=== PATIENT | female | born 1960 | race Caucasian/White ===

== ENCOUNTER 2020-03-15 11:14 | Outpatient (REF) | payer MEDICAID, SELFPAY ==
[2020-03-19 06:57] LABS: HPV mRNA E6/E7 rflx Not Detected (Not Detected)
== END 2020-03-15 11:15 | disposition home or self-care (01) ==
LOC: HO.LAB 11:14
PROVIDERS: Visit Provider Obstetrics & Gynecology
DX: Z01.419 Encounter for gynecological examination (general) (routine) without abnormal findings (principal); F41.9 Anxiety disorder, unspecified; E03.9 Hypothyroidism, unspecified; E55.9 Vitamin D deficiency, unspecified; Z78.0 Asymptomatic menopausal state; Z88.6 Allergy status to analgesic agent; Z88.8 Allergy status to other drugs, medicaments and biological substances; Z79.899 Other long term (current) drug therapy
CPT/HCPCS: 36415; 87624; 88142

== ENCOUNTER → 2020-04-14 08:48 | Outpatient (BNVA) | payer MEDICAID, SELFPAY | PROVIDERS: Visit Provider Physician Assistant ==

== ENCOUNTER 2020-05-18 08:45 | Day surgery (SDC) | payer MEDICAID, SELFPAY ==
--- NOTE | 2020-05-17 12:42 | HO.ANESPROP2 ---
Documented by User: Elizabeth Oliveira 05/17/20 12:44 HPI - Anesthesia Eval Consult details Narrative: 60yo F for Colonoscopy PMFSH Active Problems Active Problems: All Active Problems (Updated 04/14/20 @ 09:51 by Mary Fountain PA-C) Well woman exam (Acute) Encounter for screening colonoscopy (Acute) Vitamin D deficiency (Acute) Past Medical History Medical History Anxiety Hypothyroid Vitamin D deficiency Family History Family History Father Pulmonary edema without heart failure COPD (chronic obstructive pulmonary disease) Mother CVD (cardiovascular disease) Diabetes Sudden cardiac Surgical History Surgical History History of carpal tunnel release Hx of cataract removal with insertion of prosthetic lens Hx of section Hx of colonoscopy Hx of dilation and curettage Hx of esophagogastroduodenoscopy Hx of eye surgery Hx of repair of left rotator cuff Hx of repair of right rotator cuff Social History Social History Household Members: Children Alcohol intake: current Alcohol intake frequency: does not drink Smoking Status: Never smoker Advance Directives: No Advance Directives Information Provided: Yes Meds Allergies Allergy/AdvReac Type Severity Reaction Status Date / Time oxycodone [From Percocet] Allergy Mild ABDOMINAL Verified 04/14/20 08:50 PAIN amlodipine [From NORVASC] AdvReac Severe STOMACH Verified 04/14/20 08:50 UPSET/ANXIETY Home Medications Medication Instructions Recorded Confirmed Last Taken Type calcium carbonate 168 mg calcium 168 mg PO TID 03/15/20 05/12/20 Unknown History (420 mg) chewable tablet levothyroxine 100 mcg capsule 100 mcg PO DAILY 03/15/20 05/12/20 Unknown History sennosides 8.6 mg capsule 8.6 mg PO DAILY 03/15/20 05/12/20 Unknown History Exam Exam Date and Time: May 17, 2020 1242 Assessment and Plan Assessment Anesthesia Assessment: Chart Reviewed Documented by User: Italo Land 05/18/20 09:16 [facility] Past Medical History Medical History Anxiety Hypothyroid Vitamin D deficiency Family History Family History Father Pulmonary edema without heart failure COPD (chronic obstructive pulmonary disease) Mother CVD (cardiovascular disease) Diabetes Sudden cardiac Surgical History Surgical History History of carpal tunnel release Hx of cataract removal with insertion of prosthetic lens Hx of section Hx of colonoscopy Hx of dilation and curettage Hx of esophagogastroduodenoscopy Hx of eye surgery Hx of repair of left rotator cuff Hx of repair of right rotator cuff Social History Social History Household Members: Children Alcohol intake: current Alcohol intake frequency: does not drink Smoking Status: Never smoker Advance Directives: No Advance Directives Information Provided: Yes Meds Allergies Allergy/AdvReac Type Severity Reaction Status Date / Time oxycodone [From Percocet] Allergy Mild ABDOMINAL Verified 04/14/20 08:50 PAIN amlodipine [From NORVASC] AdvReac Severe STOMACH Verified 04/14/20 08:50 UPSET/ANXIETY Home Medications Medication Instructions Recorded Confirmed Last Taken Type calcium carbonate 168 mg calcium 168 mg PO TID 03/15/20 05/12/20 Unknown History (420 mg) chewable tablet levothyroxine 100 mcg capsule 100 mcg PO DAILY 03/15/20 05/12/20 Unknown History sennosides 8.6 mg capsule 8.6 mg PO DAILY 03/15/20 05/12/20 Unknown History Exam Airway Mallampati Class: II TM Dist: >3cm Neck ROM: Full Partial: Upper Loose/Missing/Broken Teeth: Yes Heart: [id number] Lungs: cta b/l Assessment and Plan Assessment Anesthesia Assessment: Anesthesia Plan Discussed, PAT Visit and Chart Reviewed Final Anesthetic Review NPO: Yes ASA Class: II Final Preanesthetic Review: No Changes in Pt Med Stat, Meds/Allgs Chart Reviewed, Consent Obtained/Reviewed and Anes Risks/Benef Reviewed Patient Risk: Low Procedure Risk: Low Assessment/Block/Sedation in SS: Assess/Block/Sedation-SS Anesthetic Plan Anesthetic Plan: MAC: and Agree w/ Assess. and Plan Disposition: Standard PACU
[2020-05-18 09:17] VITALS: BP 130/85; PULSE 80; RESP 16; TEMP 36.6; O2SAT 98; BMI 30.9
[2020-05-18] MEDS: Lactated Ringers 1,000 ML 100 ML IVCONT (09:35)
--- NOTE | 2020-05-18 09:54 | P.HPSUR_ITS ---
Pre-Procedural Eval Section B Chief Complaint: Screening Details of Present Illness: Colon cancer screening Relevant Family History (Specify if Yes): No Relevant Social History: None Present Medications: see Short Stay Collaborative assessment Medical History: Significant History (Anxiety, Hypothyroid on replacement, Vit D deficiency) History of Previous Operations: Relevant previous surgery/procedure and date(s) (07/02/18--N--EGD==HH (no sx now) [place] x2: Suleiman-2002 to 50cm;full [id number]) Allergies: Allergies Allergy/AdvReac Type Severity Reaction Status Date / Time oxycodone [From Percocet] Allergy Mild ABDOMINAL Verified 04/14/20 08:50 PAIN amlodipine [From NORVASC] AdvReac Severe STOMACH Verified 04/14/20 08:50 UPSET/ANXIETY Review of Systems Sugical H&P ROS: Negative: Constitution, Cardiovascular, Respiratory and Gastrointestinal and Yes, Specify: Psychiatric (Anxiety) and Endocrine (Hypothyroid on HRT) Exam Surgical H&P Exam: Normal: HEENT, Normal: Heart, Normal: Lungs, Normal: Extremities, Normal: Abdomen and Normal: Skin and Significant Findings: Neurological Plan Diagnosis/Plan: Unchanged I have reviewed the history and physical and performed a pertinent physical examination on my patient. No changes have occurred unless specified.yes
--- NOTE | 2020-05-18 10:15 | P.BOP_ITS ---
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
[2020-05-18 10:20] VITALS: BP 107/71; PULSE 69; RESP 20; TEMP 36.5; O2SAT 100
[2020-05-18 10:35] VITALS: BP 104/75; PULSE 80; RESP 19; TEMP 36.5; O2SAT 98
--- NOTE | 2020-05-18 10:58 | P.OP_ITS ---
Operative Note Operative Note Date of Service: 05/18/20 Narrative: Pre-op diagnosis: C0LON CANCER SCREENING Post-op diagnosis: other (INCOMPLETE DUE TO SOLID STOOL RESIDUE ABOVE 40CM..; INTERNAL HEMORRHOIDS-2+) Procedure: EQUIVALENT FLEX SIG TO 5O CM Implants: NONE Surgeon: Caprice Santiago MD Anesthesia: MAC (CUFF,REGULATORY AFFAIRS SPEC) FINDINGS: LYNN: Decreased sphincter tone Scope advanced to 40-50 cm; There was liquid and solid stool throughout. Due to the amount of solid stool exam had to be stopped for both patient safety and lack of visibility. Patient is not high risk. this is screening. Will decide on when to reschedule will need 2 day [prep] Estimated blood loss (mL): 0 Pathology: none sent Condition: stable Disposition: PACU PLAN: REPEAT SCREENING THIS YEAR WITH ADJUSTED PREP--PATIENT ALSO HAD SOLIDS THE DAY BEFORE--BRING BACK IN TO DISCUSS.
--- NOTE | 2020-05-18 15:14 | P.OP_ITS ---
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 From the start the prep was murky. Slow progress thru the Sigmoid area and then began to reach [id number] stool. Could not safely proceed beyond area of 40-50cm. Procedure terminated. On withdrawal ARV was clear but 2+ Internal hemorrhoids were noted. Estimated blood loss (mL): 0 Pathology: none sent Condition: stable Disposition: PACU PLAN: Patient to be reseen in the office. She will need a better prep that she can follow. Once that is clear to her she can be rescheduled.
== END 2020-05-18 11:09 | disposition home or self-care (01) ==
PROVIDERS: Visit Provider Internal Medicine Gastroenterology
PROC: 0DJD8ZZ Inspection of Lower Intestinal Tract, Via Natural or Artificial Opening Endoscopic (ICD-10-PCS; CPT 45378; principal; 2020-05-18 09:10)
DX: Z12.11 Encounter for screening for malignant neoplasm of colon (principal); K64.8 Other hemorrhoids; E55.9 Vitamin D deficiency, unspecified; F41.9 Anxiety disorder, unspecified; Z79.899 Other long term (current) drug therapy; Z88.8 Allergy status to other drugs, medicaments and biological substances
CPT/HCPCS: 45330

== ENCOUNTER 2020-06-04 15:13 | Emergency (ER) | payer MEDICAID, SELFPAY ==
[2020-06-04 15:22] VITALS: BP 140/81; PULSE 74; RESP 18; TEMP 37.2; O2SAT 100; BMI 31.2
--- NOTE | 2020-06-04 17:03 | ED_ITS ---
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 She has had toothache like this in the past however has not had any radiation to the left. She does not describe any injury, and states that she has missed several dental appointments over the past year because of COVID- 19. She denies chest pain or pressure, palpitations, shortness of breath, shortness breath on exertion, edema, dizziness, lightheadedness, changes in vision, abdominal pain, abdominal distention, dysuria, hematuria, and any other concerning symptoms. MD Complaint: tooth pain Onset (ago): day(s) (3) Duration: constant Severity: moderate Severity scale (1-10): 6 Relieving factors: nothing Exacerbating factors: chewing, cold and heat Context: history of dental caries and poor dental care Associated symptoms: other (Neck, jaw and left arm pain) Treatment prior to arrival: none Related Data Home Medications Medication Instructions Recorded Confirmed calcium carbonate 168 mg calcium 168 mg PO TID 03/15/20 05/12/20 (420 mg) chewable tablet levothyroxine 100 mcg capsule 100 mcg PO DAILY 03/15/20 05/18/20 sennosides 8.6 mg capsule 8.6 mg PO DAILY 03/15/20 05/12/20 Previous Rx's Medication Instructions Recorded gabapentin 100 mg capsule 100 mg PO TID #90 cap 12/05/19 cholecalciferol (vitamin D3) 50 50 mcg PO DAILY 90 Days #90 cap 01/08/20 mcg (2,000 unit) capsule ibuprofen 400 mg tablet 400 mg PO TID PRN #90 tab 02/27/20 amoxicillin-pot clavulanate 1 tab PO Q12H 10 Days #20 tab 06/04/20 [Augmentin] Allergies Allergy/AdvReac Type Severity Reaction Status Date / Time oxycodone [From Percocet] Allergy Mild ABDOMINAL Verified 04/14/20 08:50 PAIN amlodipine [From NORVASC] AdvReac Severe STOMACH Verified 04/14/20 08:50 UPSET/ANXIETY Review of Systems Review of Systems: Constitutional: No Fever, No Chills ENT/Mouth: No swallowing difficulty, no change in voice, positive dental pain, positive jaw pain, positive facial swelling Eyes: No Eye Pain, No Swelling Cardiovascular: No Chest Pain, No SOB Respiratory: No Cough, No Sputum, No Wheezing, No Smoke Exposure, No Dyspnea Gastrointestinal: No Nausea, No Vomiting, No Diarrhea Genitourinary: No Dysuria Musculoskeletal: Positive left arm pain, positive left neck pain, No Myalgias Skin: No rash Neuro: No Weakness, No Numbness, No Headache Yes all other systems are reviewed and are negative PMFSH Past Medical History Attestation statement: The following information was validated with the patient. Source: old records reviewed Medical History Anxiety Hypothyroid Vitamin D deficiency Surgical History History of carpal tunnel release Hx of cataract removal with insertion of prosthetic lens Hx of section Hx of colonoscopy Hx of dilation and curettage Hx of esophagogastroduodenoscopy Hx of eye surgery Hx of repair of left rotator cuff Hx of repair of right rotator cuff Family History Family History Father Pulmonary edema without heart failure COPD (chronic obstructive pulmonary disease) Mother CVD (cardiovascular disease) Diabetes Sudden cardiac Social History Social History Household Members: Children Alcohol intake: never Smoking Status: Never smoker Smoked in Last 30 Days: No Use of substances other than those prescribed or required for medical reasons: No Any prior treatment program specific to substance use: No Advance Directives: No Advance Directives Information Provided: Yes Physical Exam Vital Signs: Vital Signs: Last Vital Signs Temp 98.9 F 06/04/20 15:22 Pulse 74 06/04/20 15:22 Resp 18 06/04/20 15:22 BP 140/81 H 06/04/20 15:22 Pulse Ox 100 06/04/20 15:22 Body Mass Index 31.2 Appearance: Alert. Oriented X3. No acute distress. Eyes: Pupils equal, round and reactive to light. EOMI, sclera nonicteric ENT: Pharynx normal. Tympanic membranes normal, no TMJ, dental caries noted with missing molars, Neck: Normal inspection. Neck supple. No cervical lymphadenopathy, full range of motion to neck, no vertebral tenderness CVS: Normal heart rate and rhythm. Pulses normal. Respiratory: No respiratory distress. Lung sounds clear to auscultation all lobes Abdomen: Soft and nontender. Skin: Skin warm and dry. Normal skin color. Normal skin turgor. Extremities: No lower extremity edema. Full range of motion to all extremities, strength 5/5 Neuro: No motor deficit. No sensory deficit. Cranial nerves 2-12 intact Course Course Course Narrative: 60-year-old female with poor dental hypothyroidism, anxiety, and vitamin-D deficiency presents with 3 days of dental pain, jaw pain, neck pain, and left arm pain. We will give antibiotics Augmentin, Toradol for pain management. As she does have jaw pain radiating to the left arm, we will order CBC, Chem 7, troponin and EKG, to rule out ACS. Labs are negative, EKG is normal sinus. Plan of care to discharge home with Augmentin, dental referral. Patient verbalized understanding of and agrees plan of care discharge home. MDM - Dental/Oral MDM Narrative Medical decision making narrative: ACS Differential Diagnosis Differential diagnosis: Likely dental caries, toothache and dental abscess Medical Records Attestation: I reviewed the patient's medical records. Lab Data Attestation: I reviewed the patient's lab results. Result diagrams: 06/04/20 17:44 06/04/20 17:44 Labs: Lab Results 06/04/20 06/04/20 06/04/20 Range/Units 17:44 17:44 17:44 WBC 6.8 (4.8-10.8) X10*3/uL RBC 4.61 (4.20-5.50) X10*6/uL Hgb 12.9 (12.0-16.0) g/dl Hct 41.3 (37-47) % MCV 89.6 (80-98) fL MCH 28.0 (27.0-33.0) pg MCHC 31.2 (31.0-35.0) g/dl RDW 12.5 (11.0-16.0) % Plt Count 274 (160-400) X10*3/uL MPV 10.1 (9.4-12.3) fL Immature Gran % (Auto) 0.1 (0.0-0.4) % Neut % (Auto) 48.6 (45-73) % Lymph % (Auto) 38.0 (20-40) % [place] % (Auto) 5.6 (2-11) % Eos % (Auto) 6.8 H (0-4) % Baso % (Auto) 0.9 (0-2) % Lymph # (Auto) 2.6 (1.2-4.9) X10*3/uL [place] # (Auto) 0.4 (0.1-1.2) X10*3/uL Eos # (Auto) 0.5 H (0.0-0.4) X10*3/uL Baso # (Auto) 0.1 (0.0-0.2) X10*3/uL Abs Immat Gran (auto) 0.01 (0.00-0.03) X10*3/uL Absolute Neuts (auto) 3.3 (2.0-8.3) X10*3/uL Absolute Nucleated RBC 0.000 (0.0-0.012) X10*3/uL Nucleated RBC % (auto) 0.0 (0.0-0.2) /100WBC Sodium 142 (135-145) mmol/L Potassium 4.7 (3.3-5.1) mmol/L Chloride 108 (96-108) mmol/L Carbon Dioxide 26 (22-29) mmol/L Anion Gap 13 (12-20) BUN 16 (9-16) mg/dL Creatinine 0.68 (0.5-1.4) mg/dL Estim Creat Clear Calc 76.2 Estimated GFR > 60 Random Glucose 90 (60-115) mg/dL Calcium 9.7 (8.4-10.2) mg/dL Troponin I High Sens < 3.5 (<3.5-17.0) ng/L ECG Data Attestation: I personally reviewed and interpreted this ECG as follows: ECG interpretation date: 06/04/20 ECG interpretation time: 17:34 Interpretation: Vent. rate 63 BPM TX interval 160 ms QRS duration 98 ms QT/QTc 436/446 ms P-R-T axes 14 7 13 Normal sinus rhythm Inferior infarct , age undetermined Abnormal ECG When compared with ECG of 10-OCT-2019 13:53, Vent. rate has decreased BY 34 BPM When compared to EKG on March 17, 2019, no significant changes noted, heart rate at that time was 66 beats per minute. Scores Heart Score History: -0- slightly suspicious ECG: -0- normal Age: -1- >45 - <65 Risk factory: -1- 1 or 2 risk factors Troponin: -0- < or = normal limit Score: 2 Risk: 1.7% Discharge Plan Discharge Clinical Impression: Dental caries Patient Disposition: Home, Self-Care Instructions: Toothache (ED) Additional Instructions: Te evaluaron por dolor dental. Por favor, tome Augmentin dos veces al d?a vanessa los pr?ximos 10 d?as. Por favor, chelsy un seguimiento con el dentista. Te quejaste de dolor de tran y brazo con summer dolor dental. Love electrocardiograma es un ritmo sinusal normal que no muestra ondina?n cambio con respecto al electrocardiograma anterior que data de 2019. Love troponina, que son enzimas card?acas son negativas. Es muy poco probable que est? teniendo un evento card?aco esta vez Por favor, chelsy un seguimiento con el m?dico de atenci?n primaria dentro de la pr?xima semana o seg?n sea necesario para inocencio evaluaci?n. Eduardo por elegir summer departamento de emergencias para love evaluaci?n. Por favor, chelsy un seguimiento con el m?dico de atenci?n primaria seg?n sea necesario. Regrese al servicio de emergencias para cualquier s?ntoma nuevo, preocupante o que empeore. You were evaluated for dental pain. Please take Augmentin twice a day for the next 10 days. Please follow-up with dentist. You did complain of neck and arm pain with this dental pain. Your EKG is normal sinus rhythm which does not show any changes from prior EKG dating back to August 2019. Her troponin, which are cardiac enzymes are negative. Is highly unlikely that you are having a cardiac event this time Please follow-up with primary care physician within the next week or as needed for an evaluation. Thank you for choosing this emergency department for evaluation. Please follow-up with primary care physician as needed. Return to the emergency department for any new, concerning, or worsening symptoms. Prescriptions: New amoxicillin-pot clavulanate [Augmentin] 875-125 mg tablet 1 tab PO Q12H 10 Days Qty: 20 RF: 0 No Action gabapentin 100 mg capsule 100 mg PO TID Qty: 90 RF: 5 cholecalciferol (vitamin D3) 50 mcg (2,000 unit) capsule 50 mcg PO DAILY 90 Days Qty: 90 RF: 1 ibuprofen 400 mg tablet 400 mg PO TID PRN (Reason: pain) Qty: 90 RF: 3 [place] 168 mg calcium (420 mg) tablet,chewable 168 mg PO TID RF: 0 levothyroxine 100 mcg capsule 100 mcg PO DAILY RF: 0 senna 8.6 mg capsule 8.6 mg PO DAILY RF: 0 Interventions: ED Discharge Assessment Last Done: 06/04/20 19:23 Discharge Date/Time: 06/04/20 19:40
--- NOTE | 2020-06-04 17:20 | ECG_ITS ---
Test Reason : LEFT ARM PAIN Blood Pressure : / mmHG Vent. Rate : 063 BPM Atrial Rate : 063 BPM P-R Int : 160 ms QRS Dur : 098 ms QT Int : 436 ms P-R-T Axes : 014 007 013 degrees QTc Int : 446 ms Normal sinus rhythm Inferior infarct , age undetermined Abnormal ECG When compared with ECG of 10-OCT-2019 13:53, Vent. rate has decreased BY 34 BPM Referred By: Mary Alice Cardoso Electronically Signed By:Renato Buck
[2020-06-04 17:50] LABS: MANUAL DIFF FLAG NO
[2020-06-04 17:55] LABS: Basophils Absolute Auto 0.1 X10*3/uL (0.0-0.2); Basophils Percent Auto 0.9 % (0-2); Eosinophils Absolute Auto 0.5 X10*3/uL (0.0-0.4); Eosinophils Percent Auto 6.8 % (0-4); Hematocrit 41.3 % (37-47); Hemoglobin 12.9 g/dl (12.0-16.0); Imm Gran Abs Auto 0.01 X10*3/uL (0.00-0.03); Imm Gran Pct Auto 0.1 % (0.0-0.4); Lymphocytes Absolute Auto 2.6 X10*3/uL (1.2-4.9); Mean Corpuscular HGB Conc 31.2 g/dl (31.0-35.0); Mean Corpuscular Volume 89.6 fL (80-98); Mean Platelet Volume 10.1 fL (9.4-12.3); Monocytes Absolute Auto 0.4 X10*3/uL (0.1-1.2); Monocytes Percent Auto 5.6 % (2-11); Neutrophils Absolute Auto 3.3 X10*3/uL (2.0-8.3); Neutrophils Percent Auto 48.6 % (45-73); Platelet Count 274 X10*3/uL (160-400); Red Blood Count 4.61 X10*6/uL (4.20-5.50); Red Cell Distribution Width 12.5 % (11.0-16.0); White Blood Count 6.8 X10*3/uL (4.8-10.8)
[2020-06-04 18:19] LABS: Anion Gap 13 (12-20); Blood Urea Nitrogen 16 mg/dL (9-16); Calcium 9.7 mg/dL (8.4-10.2); Carbon Dioxide 26 mmol/L (22-29); Chloride 108 mmol/L (96-108); Creatinine Clr Calc Pharmacy 76.2; Estimated Glomerular Filt Rate > 60; Glucose Random 90 mg/dL (60-115); Potassium 4.7 mmol/L (3.3-5.1); Sodium 142 mmol/L (135-145)
[2020-06-04 18:25] LABS: Troponin-I High Sensitivity < 3.5 ng/L (<3.5-17.0)
[2020-06-04] MEDS: Amoxicillin/Potassium Clav 875 MG TABLET PO (18:34)
[2020-06-04] MEDS: Ketorolac Tromethamine 30 MG/ML VIAL IM (18:34)
== END 2020-06-04 19:40 | disposition home or self-care (01) ==
PROVIDERS: Nurse Practitioner Family; Emergency Provider Internal Medicine
DX: K08.89 Other specified disorders of teeth and supporting structures (principal); K02.9 Dental caries, unspecified
CPT/HCPCS: 36415; 80048; 84484; 85025; 93005; 96372; 99284; J1885

== ENCOUNTER → 2020-06-24 12:03 | Outpatient (BNVA) | payer MEDICAID, SELFPAY | PROVIDERS: Visit Provider Physician Assistant ==

== ENCOUNTER 2020-07-20 12:44 | Day surgery (SDC) | payer MEDICAID, SELFPAY ==
[2020-07-13 11:42] VITALS: BMI 30.9
--- NOTE | 2020-07-16 08:55 | HO.ANESPROP2 ---
Documented by User: Elizabeth Oliveira 07/23/20 15:49 HPI - Anesthesia Eval Consult details Narrative: 60yo F for Colonoscopy s/p Colonoscopy with TIVA, repeat d/t poor prep PMFSH Active Problems Active Problems: All Active Problems (Updated 06/24/20 @ 12:30 by Mary Fountain PA-C) Well woman exam (Acute) Encounter for screening colonoscopy (Acute) Chronic constipation (Acute) Vitamin D deficiency (Acute) Past Medical History Medical History Anxiety Chronic constipation Hypothyroid Vitamin D deficiency Family History Family History Father Pulmonary edema without heart failure COPD (chronic obstructive pulmonary disease) Mother CVD (cardiovascular disease) Diabetes Sudden cardiac Surgical History Surgical History History of carpal tunnel release Hx of cataract removal with insertion of prosthetic lens Hx of section Hx of colonoscopy Hx of dilation and curettage Hx of esophagogastroduodenoscopy Hx of eye surgery Hx of repair of left rotator cuff Hx of repair of right rotator cuff Social History Social History Household Members: Children Are you a primary hemodialysis patient care specialist to a significant other at home: No Alcohol intake: never Advance Directives: No Advance Directives Information Provided: No Patient : No Current occupational status: disabled Meds Allergies Allergy/AdvReac Type Severity Reaction Status Date / Time oxycodone [From Percocet] Allergy Mild ABDOMINAL Verified 06/24/20 12:04 PAIN amlodipine [From NORVASC] AdvReac Severe STOMACH Verified 06/24/20 12:04 UPSET/ANXIETY Home Medications Medication Instructions Recorded Confirmed Last Taken Type calcium carbonate 168 mg calcium 168 mg PO TID 03/15/20 07/13/20 Unknown History (420 mg) chewable tablet levothyroxine 100 mcg capsule 100 mcg PO DAILY 03/15/20 07/13/20 05/18/20 06:00 History Exam Exam Date and Time: July 16, 2020 0855 Height,Weight and Vital Signs: Height 5 ft 1 in Weight 74.389 kg Assessment and Plan Assessment Anesthesia Assessment: Chart Reviewed Documented by User: Elvis Hartmann MD 07/26/20 13:27 PMF Past Medical History Medical History Anxiety Chronic constipation Hypothyroid Vitamin D deficiency Family History Family History Father Pulmonary edema without heart failure COPD (chronic obstructive pulmonary disease) Mother CVD (cardiovascular disease) Diabetes Sudden cardiac Surgical History Surgical History History of carpal tunnel release Hx of cataract removal with insertion of prosthetic lens Hx of section Hx of colonoscopy Hx of dilation and curettage Hx of esophagogastroduodenoscopy Hx of eye surgery Hx of repair of left rotator cuff Hx of repair of right rotator cuff Social History Social History Household Members: Children Are you a primary hemodialysis patient care specialist to a significant other at home: No Alcohol intake: never Advance Directives: No Advance Directives Information Provided: No Patient : No Current occupational status: disabled Meds Allergies Allergy/AdvReac Type Severity Reaction Status Date / Time oxycodone [From Percocet] Allergy Mild ABDOMINAL Verified 06/24/20 12:04 PAIN amlodipine [From NORVASC] AdvReac Severe STOMACH Verified 06/24/20 12:04 UPSET/ANXIETY Home Medications Medication Instructions Recorded Confirmed Last Taken Type calcium carbonate 168 mg calcium 168 mg PO TID 03/15/20 07/13/20 Unknown History (420 mg) chewable tablet levothyroxine 100 mcg capsule 100 mcg PO DAILY 03/15/20 07/13/20 05/18/20 06:00 History Assessment and Plan Assessment Anesthesia Assessment: Anesthesia Plan Discussed and Chart Reviewed Final Anesthetic Review NPO: Yes ASA Class: II Final Preanesthetic Review: No Changes in Pt Med Stat, Meds/Allgs Chart Reviewed, Consent Obtained/Reviewed and Anes Risks/Benef Reviewed Patient Risk: Low Procedure Risk: Low Anesthetic Plan Anesthetic Plan: MAC: Disposition: Standard PACU
[2020-07-20 13:13] VITALS: BP 107/72; PULSE 85; RESP 16; TEMP 36.5; O2SAT 100
[2020-07-20] MEDS: Lactated Ringers 1,000 ML 100 ML IVCONT (13:37)
--- NOTE | 2020-07-20 14:02 | P.OP_ITS ---
Operative Note Operative Note Date of Service: 07/20/20 Narrative: Pre-op diagnosis:?Colon cancer screening Post-op diagnosis:?other (Diverticulosis, hemorrhoids) Procedure:? COLONOSCOPY TILL CECUM Consent: Indications for the procedure and potential complications of bleeding, perforation, reaction to medications and missed diagnosis were discussed with the patient and informed consent was obtained. Instrument: Olympus PCF H 190 L variable stiffness pediatric colonoscope Monitoring: Vital signs and clinical assessment, intermittent blood pressure monitoring, continuous EKG monitoring, Pulse oximetry and Carbon Dioxide monitoring were done throughout the procedure. Colon withdrawl time was 28 minutes. Procedure: The patient was placed in the left lateral decubitis position and pre-procedure medications were administered. After a digital rectal examination of the ano-rectum, the video colonoscope was inserted into the rectum and advanced through the colon to the cecum. The colonoscope was slowly withdrawn in a retrograde panoramic fashion and the colon mucosa was carefully examined including a retroflexed view of the rectum. Findings and interventions are described below. Procedure Difficulty: Without difficulty Findings: Terminal Ileum: Not evaluated Cecum:? Partially evaluated due to poor prep Ascending Colon:? Partially evaluated due to fair prep Transverse Colon:? Normal Descending Colon:? Moderate diverticulosis Sigmoid Colon:? Moderate diverticulosis Rectum:? Normal Ano-rectum:? Large internal and external hemorrhoids Colon preparation:? Good after copious irrigation and fair to poor in some area of the colon. 70% of the mucosa was visualized no large lesions were seen. Impression and Post Procedure Diagnosis: Colonoscopy Findings: No polyps were detected Moderate diverticulosis seen in the left colon Large hemorrhoids on retroflexed exam. Plan: Await pathology results Patient has an appointment on 08/05/20 in the GI Clinic with EVITA Zambrano . Advise checking a stool FIT test and if negative, repeat colonoscopy in 5 years. Above findings were reviewed with the patient and diverticulosis and hemorrhoids handouts were? given in the discharge area Surgeon:?Scott Burroughs MD Anesthesia:?MAC (Rosalinda Foy CRNA) Was an Local Announcer used for this Procedure?:?No Estimated blood loss (mL):?0 Pathology:?none sent Condition:?stable Disposition:?PACU
--- NOTE | 2020-07-20 14:02 | MHC.SHP ---
Pre-Procedural Eval Section A The patient is an INPATIENT: No Changes since office visit: Yes Patient answered all questions; No Cold of Flu in the past 2 weeks, No New Medical Problems and No Changes in Medication The History & Physical has been completed within 30 days and I have reviewed it.: Yes Section B Chief Complaint: Screening Allergies: Allergies Allergy/AdvReac Type Severity Reaction Status Date / Time oxycodone [From Percocet] Allergy Mild ABDOMINAL Verified 06/24/20 12:04 PAIN amlodipine [From NORVASC] AdvReac Severe STOMACH Verified 06/24/20 12:04 UPSET/ANXIETY Exam Surgical H&P Exam: Normal: Heart, Normal: Lungs, Normal: Extremities and Normal: Abdomen Plan Diagnosis/Plan: Unchanged I have reviewed the history and physical and performed a pertinent physical examination on my patient. No changes have occurred unless specified.
[2020-07-20 14:52] VITALS: BP 120/76; PULSE 77; RESP 16; TEMP 35.8; O2SAT 99
[2020-07-20 15:10] VITALS: BP 121/70; PULSE 80; RESP 16; TEMP 36.1; O2SAT 98
== END 2020-07-20 16:01 | disposition home or self-care (01) ==
PROVIDERS: PCP Internal Medicine; Visit Provider Internal Medicine Gastroenterology
PROC: 0DJD8ZZ Inspection of Lower Intestinal Tract, Via Natural or Artificial Opening Endoscopic (ICD-10-PCS; CPT 45378; principal; 2020-07-20 14:10)
DX: Z12.11 Encounter for screening for malignant neoplasm of colon (principal); K59.09 Other constipation; K57.30 Diverticulosis of large intestine without perforation or abscess without bleeding; K64.8 Other hemorrhoids; K64.4 Residual hemorrhoidal skin tags; Z79.899 Other long term (current) drug therapy
CPT/HCPCS: 45378

== ENCOUNTER 2020-07-22 09:42 | Outpatient (REF) | payer MEDICAID, SELFPAY ==
--- NOTE | ~2020-07-22 | MM_ITS ---
EXAMINATION: MM SCREENING DIGITAL BREAST TOMOSYNTHESIS, BILATERAL CLINICAL INFORMATION: Screening. Asymptomatic. The lifetime risk of breast cancer based on the Tyrer-Cuzick Model is 8%. COMPARISON: Outside mammography: 07/22/2018, 07/11/2017, 05/30/2016 ([facility]). TECHNIQUE: Digital breast tomosynthesis is performed in both the craniocaudal and mediolateral oblique views along with computer-aided detection (CAD). Synthesized 2D images are generated from the tomosynthesis. FINDINGS: There are scattered areas of fibroglandular density (ACR BI-RADS breast composition Category b). There are no significant masses, abnormal calcifications, or other abnormalities. Parenchymal pattern is similar to prior studies. No developing density. The axilla and skin contours are unremarkable. MM/MM tomosynthesis screening BI IMPRESSION: No mammographic evidence of malignancy. ASSESSMENT: BI-RADS 1: Negative RECOMMENDATION: Routine annual mammography screening. This patient's information was entered into a reminder system with a target due date for their next mammogram.
== END 2020-07-22 09:43 | disposition home or self-care (01) ==
LOC: HO.MAMMO 09:42
PROVIDERS: Visit Provider Obstetrics & Gynecology
DX: Z12.31 Encounter for screening mammogram for malignant neoplasm of breast (principal)
CPT/HCPCS: 77063; 77067

== ENCOUNTER 2020-07-25 08:50 | Emergency (ER) | payer MEDICAID, SELFPAY ==
[2020-07-25 10:07] VITALS: BMI 31.1
[2020-07-25 10:12] VITALS: BP 131/87; PULSE 80; RESP 16; TEMP 36.7; O2SAT 97
--- NOTE | 2020-07-25 10:24 | ED.GENADULT ---
HPI - General Adult General Chief complaint: General Medical Stated complaint: headache Time Seen by Provider: 07/25/20 09:58 Source: patient Mode of arrival: ambulatory Limitations: language barrier (Setswana speaking, digital strategy manager used.) History of Present Illness HPI narrative: Patient is a 60-year-old female who recently had a left upper molar removed 2 weeks ago complaining of facial pain on the left side and a fronotal headache as well as eye drainage x7 days. Patient states she is unable to sleep because of the pain. Patient took ibuprofen this morning with relief. Patient denies cough fever chills, chest pain or shortness of breath. Related Data Home Medications Medication Instructions Recorded Confirmed calcium carbonate 168 mg calcium 168 mg PO TID 03/15/20 07/13/20 (420 mg) chewable tablet levothyroxine 100 mcg capsule 100 mcg PO DAILY 03/15/20 07/13/20 Previous Rx's Medication Instructions Recorded gabapentin 100 mg capsule 100 mg PO TID #90 cap 12/05/19 cholecalciferol (vitamin D3) 50 50 mcg PO DAILY 90 Days #90 cap 01/08/20 mcg (2,000 unit) capsule ibuprofen 400 mg tablet 400 mg PO TID PRN #90 tab 02/27/20 sennosides 8.6 mg capsule 8.6 mg PO DAILY 30 Days #30 cap 06/10/20 polyethylene glycol 3350 17 gram 17 g PO DAILY 30 Days #30 ea 06/24/20 oral powder packet Allergies Allergy/AdvReac Type Severity Reaction Status Date / Time oxycodone [From Percocet] Allergy Mild ABDOMINAL Verified 06/24/20 12:04 PAIN amlodipine [From NORVASC] AdvReac Severe STOMACH Verified 06/24/20 12:04 UPSET/ANXIETY Review of Systems Review of Systems: Yes all other systems are reviewed and are negative PMFSH Past Medical History Medical History Anxiety Chronic constipation Hypothyroid Vitamin D deficiency Surgical History History of carpal tunnel release Hx of cataract removal with insertion of prosthetic lens Hx of section Hx of colonoscopy Hx of dilation and curettage Hx of esophagogastroduodenoscopy Hx of eye surgery Hx of repair of left rotator cuff Hx of repair of right rotator cuff Family History Family History Father Pulmonary edema without heart failure COPD (chronic obstructive pulmonary disease) Mother CVD (cardiovascular disease) Diabetes Sudden cardiac Social History Social History Household Members: Children Are you a primary healthcare liaison to a significant other at home: No Alcohol intake: never Advance Directives: No Advance Directives Information Provided: No Patient : No Current occupational status: disabled Physical Exam Vital Signs: Vital Signs: Last Vital Signs Temp 98.1 F 07/25/20 10:12 Pulse 80 07/25/20 10:12 Resp 16 07/25/20 10:12 BP 131/87 07/25/20 10:12 Pulse Ox 97 07/25/20 10:12 Body Mass Index 31.1 Const: General: cooperative, healthy appearing, comfortable and no acute distress Nutritional Appearance: average body habitus Orientation/consciousness: patient oriented x3 HENMT: Head: Yes normal to inspection, Yes No palpable skull fracture present, Yes normocephalic and Yes atraumatic Ears: hearing grossly normal bilaterally, TM normal on the right and TM abnormal dull on the left and with loss of landmarks on the left General nose exam: Normal external nose present Face and sinus: Yes normal facial exam, Yes face symmetric and Yes sinus tenderness (frontal) Mouth: Normal oral and palatal mucosa present, tongue normal and oropharynx normal Teeth and gingiva: fair dentition Throat: Yes uvula midline, Yes posterior oropharynx abnormal (erythematous) and No cobblestoning Eyes: General: appearance normal, both eyes and all related structures Pupils: Equal, round and reactive pupils present EOM: EOMs intact bilaterally Neck: Neck: Yes normal visual inspection, Yes full ROM, Yes trachea midline and Yes supple Resp: Effort & Inspection: normal respiratory effort and able to speak in complete sentences Auscultation: clear to auscultation bilaterally Cardio: Rate: regular rate Rhythm: regular rhythm Heart sounds: normal S1 and S2 Neuro: General: patient oriented x3 Cranial nerves: Yes CN's II-XII intact bilaterally and Yes Equal, round and reactive pupils present Course Course Course Narrative: Patient is a 60-year-old female who recently had a left upper molar removed 2 weeks ago complaining of facial pain on the left side and a fronotal headache as well as eye drainage x7 days. VSS. Physical exam remarkable for frontal sinus tenderness, erythematous posterior oropharynx, dull and loss of landmarks on left TM. Gave patient 2 L nasal cannula, with improvement in her headache. Likely sinus infection, explained most are viral, explained I will call in a prescription and if she is still in pain and unable to sleep, she should knot picker cloth the prescription Sunday because the if it persists, it is likely bacterial. Will give patient Flonase in the ED. Discharge Plan Discharge Prescriptions: No Action gabapentin 100 mg capsule 100 mg PO TID Qty: 90 RF: 5 cholecalciferol (vitamin D3) 50 mcg (2,000 unit) capsule 50 mcg PO DAILY 90 Days Qty: 90 RF: 1 ibuprofen 400 mg tablet 400 mg PO TID PRN (Reason: pain) Qty: 90 RF: 3 senna 8.6 mg capsule 8.6 mg PO DAILY 30 Days Qty: 30 RF: 0 [place] 168 mg calcium (420 mg) tablet,chewable 168 mg PO TID RF: 0 levothyroxine 100 mcg capsule 100 mcg PO DAILY RF: 0 polyethylene glycol 3350 [Miralax] 17 gram powder in packet 17 g PO DAILY 30 Days Qty: 30 RF: 5
== END 2020-07-25 11:21 | disposition home or self-care (01) ==
PROVIDERS: Emergency Provider Emergency Medicine Emergency Medical Services
DX: J01.90 Acute sinusitis, unspecified (principal); R51.9 Headache, unspecified
CPT/HCPCS: 99283

== ENCOUNTER → 2020-08-05 09:40 | Outpatient (BNVA) | payer MEDICAID, SELFPAY | PROVIDERS: Visit Provider Physician Assistant | DX: K57.30 Diverticulosis of large intestine without perforation or abscess without bleeding (principal); K64.9 Unspecified hemorrhoids; Z12.11 Encounter for screening for malignant neoplasm of colon; Z98.890 Other specified postprocedural states | CPT/HCPCS: 99212 ==

== ENCOUNTER 2020-09-24 11:58 | Outpatient (REF) | payer MEDICAID, SELFPAY ==
[2020-09-24 14:19] LABS: TSH reflex Free T4 4.55 uIU/mL (0.32-4.0); Vitamin D 25-OH Total 38.7 ng/mL (>30)
[2020-09-24 15:04] LABS: Free T4 (Free Thyroxine) 0.79 ng/dL (0.71-1.85)
== END 2020-09-24 11:59 | disposition home or self-care (01) ==
LOC: HO.LAB 11:58
PROVIDERS: PCP Internal Medicine; Visit Provider Nurse Practitioner Gerontology
DX: E03.8 Other specified hypothyroidism (principal); E06.3 Autoimmune thyroiditis; E55.9 Vitamin D deficiency, unspecified; M85.80 Other specified disorders of bone density and structure, unspecified site; E66.09 Other obesity due to excess calories; Z68.33 Body mass index [BMI] 33.0-33.9, adult; Z79.899 Other long term (current) drug therapy
CPT/HCPCS: 36415; 82306; 84439; 84443; 99212

== ENCOUNTER → 2020-10-18 11:25 | Outpatient (BNVA) | payer MEDICAID, SELFPAY | PROVIDERS: PCP Internal Medicine; Referring Provider Internal Medicine; Visit Provider Physician Assistant | DX: Z12.11 Encounter for screening for malignant neoplasm of colon (principal); K59.09 Other constipation; K57.30 Diverticulosis of large intestine without perforation or abscess without bleeding | CPT/HCPCS: 99212 ==

== ENCOUNTER → 2020-10-27 09:43 | Outpatient (BNVA) | payer MEDICAID, SELFPAY | PROVIDERS: PCP Internal Medicine; Visit Provider Dietitian, Registered | DX: E66.09 Other obesity due to excess calories (principal); Z68.33 Body mass index [BMI] 33.0-33.9, adult | CPT/HCPCS: 97802 ==

== ENCOUNTER 2020-10-29 09:00 | Outpatient (REF) | payer MEDICAID, SELFPAY ==
[2020-11-01 15:27] LABS: FIT Int Ctl YES; FIT1 NEGATIVE (NEGATIVE); FIT2 NEGATIVE (NEGATIVE)
== END 2020-10-29 09:01 | disposition home or self-care (01) ==
LOC: HO.LNP 09:00
PROVIDERS: Visit Provider Physician Assistant
DX: Z12.11 Encounter for screening for malignant neoplasm of colon (principal)
CPT/HCPCS: 82274

== ENCOUNTER → 2021-01-11 13:45 | Outpatient (BNVA) | payer MEDICAID, SELFPAY | PROVIDERS: PCP Internal Medicine; Visit Provider Dietitian, Registered | DX: E66.09 Other obesity due to excess calories (principal); Z68.33 Body mass index [BMI] 33.0-33.9, adult | CPT/HCPCS: 97803 ==

== ENCOUNTER 2021-02-17 12:41 | Outpatient (REF) | payer MEDICAID, SELFPAY ==
--- NOTE | ~2021-02-17 | US_ITS ---
EXAMINATION: US RETROPERITONEAL COMPLETE (RENAL) CLINICAL INFORMATION: Hematuria. COMPARISON: Abdominal ultrasound 04/04/2010. TECHNIQUE: Real-time imaging of the kidneys and bladder. FINDINGS: RIGHT KIDNEY: 11.0 x 7.0 x 5.8 cm (SAG x AP x TRV). The kidney is normal in size, contour, and echogenicity. Renal cortical thickness is normal. No renal calculi or hydronephrosis. In the upper pole there is a 1 cm simple cyst an in the mid pole there is an additional 0.8 cm simple cyst. In the lower pole there is a 1.2 cm cyst versus calyceal diverticulum with internal calcifications. In the lower pole there is an additional larger isolated calcification measuring up to 0.8 cm with associated twinkle artifact which likely represents a stone. There are several additional smaller up to 0.3 cm cortical calcifications without associated twinkle artifacts. LEFT KIDNEY: 11.0 x 5.0 x 6.0 cm (SAG x AP x TRV). The kidney is normal in size, contour, and echogenicity. Renal cortical thickness is normal. No hydronephrosis. In the upper pole there is a 1.6 cm cyst versus calyceal diverticulum with internal calcifications. In the lateral surface of the upper pole there is a 1.1 cm cyst with thin internal septations. In the upper pole there is a 0.7 cm calcification with associated twinkle artifact, likely representing a stone. In the lower pole, there is an additional isolated calcification measuring 0.4 cm without associated twinkle artifacts. Multiple additional punctate cortical calcifications are identified. BLADDER: Well distended and normal. Bilateral ureteral jets are demonstrated. Prevoid bladder volume is 803 mL. Postvoid bladder volume is 7 mL. US/US retroperitoneal comp IMPRESSION: No hydronephrosis. Multiple bilateral calcifications some of which appear to be contained within cysts/calyceal diverticuli and others of which are isolated with associated twinkle artifacts representing nonobstructing stones. There are a few complicated cysts with septations and calcifications, although some of these calcifications appear to be contained within calyceal diverticula instead of cysts. Recommend a short-term follow-up to ensure stability.
== END 2021-02-17 12:42 | disposition home or self-care (01) ==
LOC: HO.US 12:41
PROVIDERS: PCP Internal Medicine; Visit Provider Internal Medicine
DX: R31.29 Other microscopic hematuria (principal)
CPT/HCPCS: 76770

== ENCOUNTER → 2021-03-17 09:59 | Outpatient (BNVA) | payer MEDICAID, SELFPAY | PROVIDERS: PCP Internal Medicine; Visit Provider Obstetrics & Gynecology ==

== ENCOUNTER → 2021-03-28 08:57 | Outpatient (BNVA) | payer MEDICAID, SELFPAY | PROVIDERS: PCP Internal Medicine; Visit Provider Nurse Practitioner Gerontology | DX: E03.8 Other specified hypothyroidism (principal); E06.3 Autoimmune thyroiditis; M85.80 Other specified disorders of bone density and structure, unspecified site; E66.09 Other obesity due to excess calories; E55.9 Vitamin D deficiency, unspecified; Z68.33 Body mass index [BMI] 33.0-33.9, adult | CPT/HCPCS: 99212 ==

== ENCOUNTER → 2021-04-07 08:32 | Outpatient (BNVA) | payer MEDICAID, SELFPAY | PROVIDERS: PCP Internal Medicine; Referring Provider Internal Medicine; Visit Provider Physician Assistant ==

== ENCOUNTER 2021-04-07 15:59 | Outpatient (REF) | payer MEDICAID, SELFPAY ==
[2021-04-08 14:26] LABS: H Pylori Breath Test Positive (Negative)
== END 2021-04-07 16:00 | disposition home or self-care (01) ==
LOC: HO.LNP 15:59
PROVIDERS: Visit Provider Physician Assistant
DX: K21.9 Gastro-esophageal reflux disease without esophagitis (principal)
CPT/HCPCS: 83013

== ENCOUNTER 2021-05-06 13:56 | Outpatient (REF) | payer MEDICAID, SELFPAY ==
--- NOTE | ~2021-05-06 | MM_ITS ---
EXAMINATION: BONE DENSITOMETRY CLINICAL INDICATION: Other specified disorders of bone density and structure, unspecified site. COMPARISON: Previous BD dated 10/01/2014 and baseline BD dated 03/02/2009. TECHNIQUE: Using a [employer] DXA System (software version: 13.1) manufactured by [employer], dual-energy x-ray absorptiometry was performed of the lumbar spine and left hip. The images are of good technical quality. Summary results are attached. FINDINGS: AP SPINE L1-L4 (excluding L2 and L3): The data of L1-L4 has been changed to exclude the L2 and L3 vertebral bodies, because degenerative sclerosis at these levels may cause overestimation of lumbar spine density. Current: BMD 1.110 g/cm2, Z-score 0.6, T-score -0.5, normal, 7.2% increase from previous, 7.0% decrease from baseline (<5% change is not significant). Prior: BMD 1.035 g/cm2. Baseline: BMD 1.193 g/cm2. LEFT FEMUR, NECK: Current: BMD 0.717 g/cm2, Z-score -1.2, T-score -2.3, osteopenia. Prior: BMD 0.893 g/cm2. Baseline: BMD 0.999 g/cm2. LEFT FEMUR, TOTAL: Current: BMD 0.788 g/cm2, Z-score -0.9, T-score -1.7, osteopenia, 21.0% decrease from previous, 25.8% decrease from baseline (<5% change is not significant). Prior: BMD 0.997 g/cm2. Baseline: BMD 1.062 g/cm2. IDENTIFIED RISK FACTORS: Menopause. Secondary osteoporosis (hyperthyroid). Height loss. Parental hip fracture. HISTORY OF FRACTURE: None listed. MEDICATIONS: Calcium, vitamin D. MM/XR DEXA axial skeleton IMPRESSION: 1. DIAGNOSIS: Osteopenia based on the lowest T-score value of -2.3 in the femoral neck applying World Health Organization criteria. 2. 10-YEAR FRACTURE RISK PREDICTION, FRAX: Major osteoporotic fracture (clinical spine, forearm, hip or shoulder) 6.2%. Hip fracture 1.0%. 3. Treatment Recommendations: NOF guidelines recommend consideration for treatment in postmenopausal women and men age 50 and older presenting with the following: -A hip or vertebral (clinical or morphometric) fracture. -T-score less than or equal to -2.5 at the femoral neck or spine after appropriate evaluation to exclude secondary causes. -Low bone mass at the hip or spine and a 10-year fracture probability by FRAX of greater than or equal to 3% for hip fracture or greater than or equal to 20% for major osteoporotic fracture based on the [place] adapted WHO algorithm. 4. Other Recommendations: All treatment decisions require clinical judgment and consideration of individual patient factors, including patient preferences, comorbidities, previous drug use, risk factors not captured in the FRAX model (e.g. frailty, falls, vitamin D deficiency, increased bone turnover, interval significant decline in bone density) and possible under or overestimation of fracture risk by FRAX. Additional medical evaluation for secondary cause of low bone mineral density may be appropriate. FUTURE SCAN RECOMMENDATION: People with diagnosed cases of osteoporosis or at high risk for fracture should have regular bone mineral density tests. For patients eligible for Medicare, routine testing is allowed once every 2 years. The testing frequency can be increased to one year for patients who have rapidly progressing disease, those who are receiving or discontinuing medical therapy to restore bone mass, or have additional risk factors.
== END 2021-05-06 13:57 | disposition home or self-care (01) ==
LOC: HO.MAMMO 13:56
PROVIDERS: PCP Internal Medicine; Visit Provider Nurse Practitioner Gerontology
DX: Z13.820 Encounter for screening for osteoporosis (principal); M85.80 Other specified disorders of bone density and structure, unspecified site
CPT/HCPCS: 77080

== ENCOUNTER → 2021-06-02 08:01 | Outpatient (BNVA) | payer MEDICAID, SELFPAY | PROVIDERS: PCP Internal Medicine; Visit Provider Physician Assistant | DX: K21.9 Gastro-esophageal reflux disease without esophagitis (principal); K59.09 Other constipation; K64.9 Unspecified hemorrhoids; Z78.9 Other specified health status | CPT/HCPCS: 99212 ==

== ENCOUNTER 2021-06-23 09:45 | Outpatient (REF) | payer MEDICAID, SELFPAY ==
[2021-06-24 12:46] LABS: H Pylori Breath Test Positive (Negative)
== END 2021-06-23 09:46 | disposition home or self-care (01) ==
LOC: CF 09:45
PROVIDERS: Visit Provider Physician Assistant
DX: A04.8 Other specified bacterial intestinal infections (principal)
CPT/HCPCS: 36415; 83013; 99211

== ENCOUNTER 2021-06-27 13:00 | Outpatient (REF) | payer MEDICAID, SELFPAY ==
[2021-06-27 15:32] LABS: Alanine Aminotransferase 15 U/L (0-31); Albumin Level 4.2 g/dL (3.5-5.0); Alkaline Phosphatase 87 U/L (39-117); Anion Gap 11 (12-20); Aspartate Amino Transferase 18 U/L (5-31); Bilirubin Total 0.4 mg/dL (0.0-1.0); Blood Urea Nitrogen 13 mg/dL (9-16); Calcium 9.7 mg/dL (8.4-10.2); Carbon Dioxide 27 mmol/L (22-29); Chloride 108 mmol/L (96-108); Estimated Glomerular Filt Rate > 60; Glucose Random 84 mg/dL (60-115); Potassium 4.2 mmol/L (3.3-5.1); Sodium 142 mmol/L (135-145); Total Protein 7.8 g/dL (6.5-8.0)
[2021-06-27 15:52] LABS: TSH reflex Free T4 1.55 uIU/mL (0.32-4.0)
[2021-06-27 15:53] LABS: Vitamin D 25-OH Total 45.8 ng/mL (>30)
== END 2021-06-27 13:01 | disposition home or self-care (01) ==
LOC: HO.LAB 13:00
PROVIDERS: PCP Internal Medicine; Visit Provider Nurse Practitioner Family
DX: M17.12 Unilateral primary osteoarthritis, left knee (principal); E03.9 Hypothyroidism, unspecified
CPT/HCPCS: 36415; 80053; 82306; 84443; 99212

== ENCOUNTER → 2021-07-13 14:02 | Outpatient (BNVA) | payer MEDICAID, SELFPAY | PROVIDERS: PCP Internal Medicine; Referring Provider Internal Medicine; Visit Provider Surgery | DX: K64.8 Other hemorrhoids (principal); K64.4 Residual hemorrhoidal skin tags | CPT/HCPCS: 46600; 99202 ==

== ENCOUNTER 2021-07-26 13:58 | Outpatient (REF) | payer MEDICAID, SELFPAY ==
--- NOTE | ~2021-07-26 | US_ITS ---
EXAMINATION: US RETROPERITONEAL LIMITED (RENAL ONLY) CLINICAL INFORMATION: Kidney cyst. COMPARISON: US retroperitoneal complete (renal) 02/17/2021. TECHNIQUE: Real-time imaging of the kidneys. FINDINGS: RIGHT KIDNEY: 10.1 x 5.3 x 5.8 cm (SAG x AP x TRV). The kidney is normal in size, contour, and echogenicity. Renal cortical thickness is normal. There are 2 cysts measuring 1 cm in the upper pole and 0.8 cm in the midpole. There is a 6 mm calcification in the upper pole adjacent to assist questionable for cyst wall calcification or milk of calcium cyst versus stone. There is a peripheral cortical calcification in the lower pole that measures 3 mm. No renal mass. No hydronephrosis. LEFT KIDNEY: 10.4 x 5.0 x 5.5 cm (SAG x AP x TRV). The kidney is normal in size, contour, and echogenicity. Renal cortical thickness is normal. There is a complex cyst in the upper pole that measures 1.2 cm and has several thin septations. This measured 1.1 x 1 cm January 2021 and not appreciably changed in size. There is a 9 mm simple cyst in the upper pole with peripheral calcification again chest questionable for cyst wall calcification, milk of calcium cyst or adjacent small stone. There is a 4 mm stone in the upper pole. There may be other smaller stones in the mid and lower pole. No hydronephrosis. US/US renal BI IMPRESSION: Bilateral renal cysts. No appreciable change in the complex 1.2 cm cyst in the upper pole of the left kidney with several thin septations. Question small bilateral renal stones.
== END 2021-07-26 13:59 | disposition home or self-care (01) ==
LOC: HO.US 13:58
PROVIDERS: Visit Provider Internal Medicine
DX: N28.1 Cyst of kidney, acquired (principal)
CPT/HCPCS: 76775

== ENCOUNTER 2021-10-04 15:26 | Outpatient (REF) | payer MEDICAID, SELFPAY ==
[2021-10-04 17:06] LABS: Urine Cytology See Pathology rpt
== END 2021-10-04 15:27 | disposition home or self-care (01) ==
LOC: HO.LAB 15:26
DX: R31.29 Other microscopic hematuria (principal); N28.1 Cyst of kidney, acquired
CPT/HCPCS: 88112; 99202

== ENCOUNTER 2022-02-16 12:43 | Outpatient (REF) | payer MEDICAID, SELFPAY ==
--- NOTE | ~2022-02-16 | MM_ITS ---
EXAMINATION: MM SCREENING DIGITAL BREAST TOMOSYNTHESIS, BILATERAL CLINICAL INFORMATION: Screening. Asymptomatic. The lifetime risk of breast cancer based on the Tyrer-Cuzick Model is 6%. COMPARISON: Mammography: July 22, 2020 and studies dating back to March 18, 2012 TECHNIQUE: Digital breast tomosynthesis is performed in both the craniocaudal and mediolateral oblique views along with computer-aided detection (CAD). Synthesized 2D images are generated from the tomosynthesis. FINDINGS: There are scattered areas of fibroglandular density (ACR BI-RADS breast composition Category b). There are no significant masses, abnormal calcifications, or other abnormalities. MM/MM tomosynthesis screening BI IMPRESSION: No significant changes from prior exam. ASSESSMENT: BI-RADS 1: Negative RECOMMENDATION: Routine annual mammography screening. This patient's information was entered into a reminder system with a target due date for their next mammogram.
== END 2022-02-16 12:44 | disposition home or self-care (01) ==
LOC: HO.MAMMO 12:43
PROVIDERS: PCP Internal Medicine; Visit Provider Internal Medicine
DX: Z12.31 Encounter for screening mammogram for malignant neoplasm of breast (principal)
CPT/HCPCS: 77063; 77067

== ENCOUNTER → 2022-03-31 08:44 | Outpatient (BNVA) | payer MEDICAID, SELFPAY | PROVIDERS: PCP Internal Medicine; Visit Provider Nurse Practitioner Family | DX: M17.12 Unilateral primary osteoarthritis, left knee (principal); M54.50 Low back pain, unspecified; M85.80 Other specified disorders of bone density and structure, unspecified site; Z78.0 Asymptomatic menopausal state | CPT/HCPCS: 99212 ==

== ENCOUNTER → 2022-06-26 10:45 | Outpatient (BNVA) | payer MEDICAID, SELFPAY | PROVIDERS: PCP Internal Medicine; Visit Provider Obstetrics & Gynecology ==

== ENCOUNTER 2022-08-01 13:40 | Outpatient (REF) | payer MEDICAID, SELFPAY ==
--- NOTE | ~2022-08-01 | US_ITS ---
EXAMINATION: US RETROPERITONEAL LIMITED (RENAL ONLY) CLINICAL INFORMATION: Cyst of kidney, acquired. COMPARISON: Ultrasound retroperitoneal limited (renal only) 07/26/2021. Ultrasound retroperitoneal complete (renal) 02/17/2021. TECHNIQUE: Real-time imaging of the kidneys. FINDINGS: RIGHT KIDNEY: 10.3 x 4.6 x 6.1 cm (SAG x AP x TRV). The kidney is normal in size, contour, and echogenicity. Renal cortical thickness is normal. No renal calculi or hydronephrosis. 3 cysts with calcifications, largest in the midpole measures 1.1 x 0.8 x 1.0 cm. LEFT KIDNEY: 10.6 x 5.6 x 4.4 cm (SAG x AP x TRV). The kidney is normal in size, contour, and echogenicity. Renal cortical thickness is normal. No renal calculi or hydronephrosis. 3 cysts with calcifications, largest in the midpole measures 1.2 x 1.3 x 1.1 cm with septation, unchanged from previous. US/US renal BI IMPRESSION: Bilateral renal cysts as described.
== END 2022-08-01 13:41 | disposition home or self-care (01) ==
LOC: HO.US 13:40
PROVIDERS: PCP Family Medicine; Visit Provider Nurse Practitioner Family
DX: N28.1 Cyst of kidney, acquired (principal)
CPT/HCPCS: 76775

== ENCOUNTER 2022-10-05 13:44 | Outpatient (AMB) | payer MEDICAID, SELFPAY ==
--- NOTE | 2022-10-05 14:05 | A.OFFVIS_ITS ---
Intake Intake Visit Reasons: renal cyst-yearly follow up(set) Intake Note: Patient presents for follow up renal cyst/ultrasound (imaging 08/01/22) Urology Medications: none Blood Thinner: none Sales Agent Financial Report Service Required: Yes Sales Agent Financial Report Service Name: LARON Accompanied by: Self / Same As Patient Allergies oxycodone [From Percocet] Allergy (Mild, Verified 10/05/22 14:27) ABDOMINAL PAIN amlodipine [From NORVASC] Adverse Reaction (Severe, Verified 10/05/22 14:27) STOMACH UPSET/ANXIETY Medication List - Last Reconciled 10/05/22 by NAIMA Salomon-DOV atorvastatin 80 mg PO DAILY calcium carbonate (Alcalak) 168 mg PO TID calcium carbonate-vitamin D3 600 mg-20 mcg (800 unit) 1 tab PO DAILY gabapentin 100 mg PO TID hydrocortisone 2.5% (Proctosol HC) 1 appl [place] BEDTIME PRN hydroxyzine HCl 25 mg PO DAILY PRN ibuprofen 400 mg PO TID PRN levothyroxine 112 mcg PO DAILY 90 days loratadine (Allergy Relief (loratadine)) 10 mg PO DAILY menthol-zinc oxide 0.44-20.6 % (Calmoseptine) 1 appl topical BID PRN methylcellulose (laxative) (Citrucel) 500 mg PO BID omeprazole 20 mg PO BID 14 days polyethylene glycol 3350 (Miralax) 17 grams PO DAILY 30 days HPI HPI Comments History of Present Illness Details Trina is a pleasant 62-year-old Fijian-speaking female patient of Dr. Cardozo. She has a past medical history of anxiety, chronic constipation, hypothyroidism, osteopenia, vitamin-D deficiency, and bilateral renal cysts. She presents to the office today for follow-up of her renal cysts. When asked she reports to be doing and feeling well. Recent renal imaging results reviewed with the patient today. Right kidney with 3 cyst with calcifications, largest in the midpole measures 1.1 x 0.8 x 1.0 cm. Left kidney with 3 cysts with calcifications,largest in the midpole measures 1.2 x 1.3 x 1.1 cm with septation, unchanged from previous imaging. No hydronephrosis or nephrolithi asis noted. When asked patient denies any urinary issues or concerns at this time. She reports be happy with current voiding parameters. 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 In office urinalysis results reviewed with the patient today. When asked she denies urinary urgency, urinary frequency, incontinence, nocturia, hematuria, dysuria, foul smelling urine, changes to urinary stream, flank pain, fever, and or chills. She does report ongoing back pain that she relates to her neuropathy. She otherwise offers no issues or concerns at this time. 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 Obesity due to excess calories Osteopenia Renal cyst Vitamin D deficiency Surgical History History of carpal tunnel release Hx of cataract removal with insertion of prosthetic lens Hx of section Hx of colonoscopy Hx of dilation and curettage Hx of esophagogastroduodenoscopy Hx of eye surgery Hx of repair of left rotator cuff Hx of repair of right rotator cuff Hx of tubal ligation Family History Father Pulmonary edema without heart failure COPD (chronic obstructive pulmonary disease) Mother CVD (cardiovascular disease) Diabetes Sudden cardiac Sister Diabetes Schizo-affective schizophrenia Brother Throat cancer Epilepsy Social History Household Members Other:: son Housing: Apartment Are you a primary healthcare customer service to a significant other at home: No Alcohol intake: never Patient Tobacco Use Status: Never used Tobacco Current occupational status: disabled Sexual orientation: Straight/Heterosexual Gender identity: Female Female Reproductive History Menstrual Age of Menarche: 12 Review of Systems Eyes Reports no additional complaints ENT Reports no additional complaints Card Reports no additional complaints Resp Reports no additional complaints GI Reports as per HPI Reports as per HPI Musc Reports as per HPI Neuro Reports no additional complaints Psych Reports as per HPI Endo Reports no additional complaints Ace/Lymph Reports no additional complaints Aller/Immun Reports no additional complaints Physical Exam Const General: cooperative, comfortable, no acute distress, well developed, alert and awake Orientation/consciousness: patient oriented x3 HEENT Head: Yes normal to inspection, Yes normocephalic and Yes atraumatic Ears: hearing grossly normal bilaterally Eyes General: appearance normal, both eyes and all related structures Neck Neck: Yes normal visual inspection and Yes trachea midline Chest Chest palpation & inspection: normal inspection of the chest Resp Effort & Inspection: normal respiratory effort and able to speak in complete sentences Cardio Rate: regular rate GI Inspection: Yes normal to inspection General: Yes no CVA tenderness Back/Spine/Pelvis Back: no CVA tenderness Skin General skin exam: no rashes or lesions noted Neuro General: patient oriented x3 Extrem General: Yes normal to inspection Psych Appearance: grossly normal and well kempt Mental Status: mental status grossly normal Speech and movement: Normal speech and movement present and Clear speech present Affect: normal affect Attitude: cooperative Thought process: Normal thought process present Thought content: Normal thought content present Results AMB Urinalysis, Automated UA Leukoctes 0 Jamie/uL Last Edit by [employer] ([employer]) on 10/05/22 14:10 UA Nitrite Last Edit by [employer] ([employer]) on 10/05/22 14:10 UA Urobilinogen 0.2 mg/dL Last Edit by [employer] ([employer]) on 10/05/22 14:10 UA Protein 0 mg/dL Last Edit by [employer] ([employer]) on 10/05/22 14:10 UA pH 6.0 Last Edit by [employer] ([employer]) on 10/05/22 14:10 UA Blood 80 Brett/uL Last Edit by [employer] ([employer]) on 10/05/22 14:10 UA Specific Sherwood 1.025 Last Edit by [employer] ([employer]) on 10/05/22 14:10 UA Ketone Negative Last Edit by [employer] ([employer]) on 10/05/22 14:10 UA Bilirubin 0 mg/dL Last Edit by [employer] ([employer]) on 10/05/22 14:10 UA Glucose 0 mg/dL Last Edit by [employer] ([employer]) on 10/05/22 14:10 Results Reviewed Results Reviewed: Laboratory Last Values Urine pH (Auto) 6.0 10/05/22 14:07 Specific Sherwood (Auto) 1.025 10/05/22 14:07 Urine Protein (Auto) 0 mg/dL 10/05/22 14:07 Glucose (UA)(Auto) 0 mg/dL 10/05/22 14:07 Urine Ketones (Auto) Negative 10/05/22 14:07 Urine Blood (Auto) 80 Brett/uL 10/05/22 14:07 Urine Bilirubin (Auto) 0 mg/dL 10/05/22 14:07 Urine Urobilinogen (Auto) 0.2 mg/dL 10/05/22 14:07 Leukocyte Esterase (Auto) 0 Jamie/uL 10/05/22 14:07 Date of Service: 08/01/22 EXAMINATION: US RETROPERITONEAL LIMITED (RENAL ONLY) FINDINGS: RIGHT KIDNEY: 10.3 x 4.6 x 6.1 cm (SAG x AP x TRV). The kidney is normal in size, contour, and echogenicity. Renal cortical thickness is normal. No renal calculi or hydronephrosis. 3 cysts with calcifications, largest in the midpole measures 1.1 x 0.8 x 1.0 cm. LEFT KIDNEY: 10.6 x 5.6 x 4.4 cm (SAG x AP x TRV). The kidney is normal in size, contour, and echogenicity. Renal cortical thickness is normal. No renal calculi or hydronephrosis. 3 cysts with calcifications, largest in the midpole measures 1.2 x 1.3 x 1.1 cm with septation, unchanged from previous. IMPRESSION: Bilateral renal cysts as described. Assessment & Plan Assessment & Plan (1) Renal cyst: Code(s): N28.1 - Cyst of kidney, acquired Plan In office urinalysis results reviewed with the patient today; as noted above Patient denies any urological issues or concerns at this time She is happy with her current voiding parameters. Recent renal imaging results reviewed with the patient today; as noted above Renal Ultrasound in 1 year Follow-up in 1 year with imaging to be completed prior; or sooner with any issues, concerns, or questions. Orders: Orders US renal BI 364 Days N28.1 - Cyst of kidney, acquired AMB Urinalysis Automated Today Z13.9 - Encounter for screening, unspecified Patient Instructions: The patient had an opportunity to ask questions regarding the treatment plan. All questions were answered. Physical exam, labs, and imaging were discussed and reviewed in detail. As well as risks, benefits, and discussion of treatment choices. No major barriers to understanding were identified. The patient expressed understanding and agreement with the above treatment plan. The patient was made aware they should contact our office by phone for worsening of their current condition, the appearance of new symptoms, or with any questions or concerns. Compliance is encouraged with any medications and follow up testing that is ordered. It is a privilege to be allowed the opportunity to participate in? your urological care.? Again, if you have any questions or concerns If you have any questions or concerns please do not hesitate to contact me. The office is [phone]. This note is constructed using voice recognition software. While every effort has been made to ensure accuracy security sergeant errors may have been included. Yours sincerely, BETI Salomon Coding Level of Care Code Est Pt Level 3 (28540) Diagnoses Renal cyst N28.1
== END 2022-10-05 14:29 | disposition home or self-care (01) ==
LOC: HO.HUSH 13:44
PROVIDERS: PCP Family Medicine; Visit Provider Nurse Practitioner Family
DX: Z13.9 Encounter for screening, unspecified (principal); N28.1 Cyst of kidney, acquired
CPT/HCPCS: 99213

== ENCOUNTER → 2022-10-05 13:44 | Outpatient (BNVA) | payer MEDICAID, SELFPAY | PROVIDERS: PCP Family Medicine; Visit Provider Nurse Practitioner Family | DX: N28.1 Cyst of kidney, acquired (principal) | CPT/HCPCS: 81003; 99213 ==

== ENCOUNTER 2022-12-20 08:49 | Outpatient (AMB) | payer MEDICAID, SELFPAY ==
--- NOTE | 2022-12-20 08:53 | MHC.OFFVIS ---
Intake Vital Signs 12/20/22 08:56 Height 5 ft 1 in Weight 178 lb BMI 33.6 BP 140/78 H Blood Pressure Location Lt brachial Position Sitting Pulse 75 Intake Visit Reasons: Acid reflux Intake Note: Patient follow up for Acid reflex. Patient cc: abdominal pain with bloating on and off, constipation and some swallowing problems. Denies any other GI issues. Forklift Wheel Loader Required: Yes Forklift Wheel Loader Name: Yolanda [id number] Accompanied by: Self / Same As Patient Allergies oxycodone [From Percocet] Allergy (Mild, Verified 12/20/22 08:53) ABDOMINAL PAIN amlodipine [From NORVASC] Adverse Reaction (Severe, Verified 12/20/22 08:53) STOMACH UPSET/ANXIETY Medication List - Last Reconciled 12/20/22 by Mary Fountain PA-C atorvastatin 80 mg PO DAILY calcium carbonate (Alcalak) 168 mg PO TID calcium carbonate-vitamin D3 600 mg-20 mcg (800 unit) 1 tab PO DAILY calcium polycarbophil (Fiber Laxative (calcium polycarbophil)) 1,250 mg (2 x 625 mg) PO DAILY 30 days docusate sodium (Colace) 200 mg (2 x 100 mg) PO BEDTIME gabapentin 100 mg PO TID hydrocortisone 2.5% (Proctosol HC) 1 appl [place] BEDTIME PRN hydroxyzine HCl 25 mg PO DAILY PRN ibuprofen 400 mg PO TID PRN levothyroxine 112 mcg PO DAILY 90 days loratadine (Allergy Relief (loratadine)) 10 mg PO DAILY menthol-zinc oxide 0.44-20.6 % (Calmoseptine) 1 appl topical BID PRN pantoprazole 20 mg PO QAM polyethylene glycol 3350 (Miralax) 17 grams PO DAILY HPI HPI Comments History of Present Illness Details A 62 y/o female - acid reflux- inflammation in the stomach omeprazole m- ran out about 5 months ago- was not able to get refills- she does not think omeprazole helps anyway- History of H pylori she does not recall follow-up after last episode HX constipation- uses a tea that is helpful- cream for hemorrhoids very helpful- ran out of all Appetite good - No nausea, vomiting, hematemesis, hematochezia fever or chills PFSH Medical History Anxiety Chronic constipation Hypothyroid 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 Obesity due to excess calories Osteopenia Renal cyst Vitamin D deficiency Surgical History Hx of tubal ligation History of carpal tunnel release Hx of eye surgery Hx of dilation and curettage Hx of repair of right rotator cuff Hx of repair of left rotator cuff Hx of colonoscopy Hx of esophagogastroduodenoscopy Hx of cataract removal with insertion of prosthetic lens Hx of section Family History Father Pulmonary edema without heart failure COPD (chronic obstructive pulmonary disease) Mother CVD (cardiovascular disease) Diabetes Sudden cardiac Sister Diabetes Schizo-affective schizophrenia Brother Throat cancer Epilepsy Social History Household Members Other:: son Housing: Apartment Are you a primary home care manager to a significant other at home: No Alcohol intake: never Patient Tobacco Use Status: Never used Tobacco Current occupational status: disabled Sexual orientation: Straight/Heterosexual Gender identity: Female Female Reproductive History Menstrual Age of Menarche: 12 Review of Systems Const All systems reviewed & are unremarkable except as noted in HPI and below Card Denies chest pain and Denies dyspnea Resp Denies dyspnea GI Denies abdominal pain, Denies change in bowel habits, Reports dyspepsia, Reports heartburn, Denies nausea and Denies vomiting Physical Exam Vital Signs: Last Vital Signs Pulse 75 12/20/22 08:56 BP 140/78 H 12/20/22 08:56 BMI result Body Mass Index 33.6 Const General: cooperative, healthy appearing, comfortable and no acute distress Orientation/consciousness: patient oriented x3 Limitations: 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) Eyes Conjunctivae: conjunctivae normal Resp Effort & Inspection: normal respiratory effort and able to speak in complete sentences Auscultation: clear to auscultation bilaterally, no rales, no rhonchi and no wheezes Cardio Rate: regular rate Rhythm: regular rhythm Heart sounds: S1 normal heart sound present and S2 normal heart sound present GI Palpation (GI): Soft to palpation and nontender Auscultation: normal bowel sounds Skin General skin exam: no rashes or lesions noted Neuro General: patient oriented x3 Extrem General: Yes full ROM Psych Appearance: grossly normal Mental Status: mental status grossly normal Speech and movement: Normal speech and movement present and Clear speech present Affect: normal affect Attitude: cooperative Thought process: Normal thought process present Thought content: Normal thought content present Results Reviewed Results Reviewed: 07/2020- Manjeet Findings: Terminal Ileum: Not evaluated Cecum:? Partially evaluated due to poor prep Ascending Colon:? Partially evaluated due to fair prep Transverse Colon:? Normal Descending Colon:? Moderate diverticulosis Sigmoid Colon:? Moderate diverticulosis Rectum:? Normal Ano-rectum:? Large internal and external hemorrhoids Colon preparation:? Good after copious irrigation and fair to poor in some area of the colon. 70% of the mucosa was visualized no large lesions were seen. Impression and Post Procedure Diagnosis: Colonoscopy Findings: No polyps were detected Moderate diverticulosis seen in the left colon Large hemorrhoids on retroflexed exam. Plan: Await pathology results Patient has an appointment on 08/05/20 in the GI Clinic with EVITA Zambrano . Advise checking a stool FIT test and if negative, repeat colonoscopy in 5 years. Above findings were reviewed with the patient and diverticulosis and hemorrhoids handouts were? given in the discharge area Assessment & Plan Assessment & Plan (1) Poor historian: Comment: Details review Reviewed previous colonoscopy due for repeat 2025 due to inadequate prep, fit test was negative Code(s): Z78.9 - Other specified health status (2) History of Helicobacter pylori infection: Comment: hx HP - no NNAMDI NO ppi Code(s): Z86.19 - Personal history of other infectious and parasitic diseases Plan: HP stool antigen if positive will tx (3) Acid reflux: Comment: begin pantoprazole 20mg after submitting stool sample for HP- reviewed acid reflux precautions Code(s): K21.9 - Gastro-esophageal reflux disease without esophagitis (4) Hemorrhoids: Comment: HFD-cream Code(s): K64.9 - Unspecified hemorrhoids (5) Chronic constipation: Comment: consistent bowel regimen-will cont MiraLax q.h.s. Colace, fiber supplement HFD Avoid straining Code(s): K59.09 - Other constipation Orders: Orders H pylori Ag Stool Today A04.8 - Other specified bacterial intestinal infections Medications: New docusate sodium (Colace) 200 mg (2 x 100 mg) PO BEDTIME 60 caps 5RF polyethylene glycol 3350 (Miralax) 17 grams PO DAILY 510 grams 6RF pantoprazole 20 mg PO QAM 30 tabs 6RF calcium polycarbophil (Fiber Laxative (calcium polycarbophil)) 1,250 mg (2 x 625 mg) PO DAILY 60 tabs 3RF 30 days Refilled hydrocortisone 2.5% (Proctosol HC) 1 appl [place] BEDTIME PRN 30 grams 3RF hemorrhoids Discontinued polyethylene glycol 3350 (Miralax) 17 g q.h.s.-then increase to b.i.d. for 3 days prior to colon prep day Discontinued Reason: Patient no longer taking 17 grams PO DAILY 30 days 30 ea 5RF methylcellulose (laxative) (Citrucel) Discontinued Reason: Patient no longer taking 500 mg PO BID 60 tabs 5RF omeprazole Discontinued Reason: Patient Completed Course 20 mg PO BID 14 days 28 caps 0RF Patient Instructions: HP stool antigen if positive will tx begin pantoprazole 20mg after submitting stool sample for HP- reviewed acid reflux precautions stool regimen HFD Cream for hemorrhoids Encouraged to call questions or concerns Coding Level of Care Code Est Pt Level 4 (16518) Diagnoses Poor historian Z78.9 History of Helicobacter pylori infection Z86.19 Acid reflux K21.9 Hemorrhoids K64.9 Chronic constipation K59.09 Time Spent (min) 30 Comment 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
[2022-12-20 08:56] VITALS: BP 140/78; PULSE 75; BMI 33.6
== END 2022-12-20 09:49 | disposition home or self-care (01) ==
PROVIDERS: PCP Family Medicine; Visit Provider Physician Assistant
DX: Z78.9 Other specified health status (principal); Z86.19 Personal history of other infectious and parasitic diseases; K21.9 Gastro-esophageal reflux disease without esophagitis; K64.9 Unspecified hemorrhoids; K59.09 Other constipation
CPT/HCPCS: 99214

== ENCOUNTER 2022-12-20 08:49 | Outpatient (REF) | payer MEDICAID, SELFPAY | END 2022-12-20 08:50 | disposition home or self-care (01) | LOC: HO.LNP 08:49 | PROVIDERS: PCP Family Medicine; Visit Provider Physician Assistant | DX: K21.9 Gastro-esophageal reflux disease without esophagitis (principal); K64.9 Unspecified hemorrhoids; K59.09 Other constipation; A04.8 Other specified bacterial intestinal infections; Z78.9 Other specified health status; Z86.19 Personal history of other infectious and parasitic diseases; Z79.899 Other long term (current) drug therapy | CPT/HCPCS: 87338; 99212 ==

== ENCOUNTER → 2023-04-13 11:45 | Outpatient (BNV) | payer MEDICARE, MEDICAID, SELFPAY | PROVIDERS: Visit Provider Radiology Diagnostic Radiology | DX: Z12.31 Encounter for screening mammogram for malignant neoplasm of breast (principal) | CPT/HCPCS: 77063; 77067 ==

== ENCOUNTER 2023-04-13 11:50 | Outpatient (REF) | payer MEDICARE, MEDICAID, SELFPAY | END 2023-04-13 11:51 | disposition home or self-care (01) | LOC: HO.MAMMO 11:50 | PROVIDERS: Visit Provider Family Medicine | DX: Z12.31 Encounter for screening mammogram for malignant neoplasm of breast (principal) | CPT/HCPCS: 77063; 77067 ==

== ENCOUNTER 2023-06-20 11:24 | Outpatient (REF) | payer OTHER, SELFPAY ==
[2023-06-20 13:09] LABS: Estimated Average Glucose 117 mg/dL; Hemoglobin A1c % 5.7 % (<6.0)
[2023-06-20 13:33] LABS: Alanine Aminotransferase 15 U/L (0-31); Albumin Level 4.2 g/dL (3.5-5.0); Alkaline Phosphatase 75 U/L (39-117); Anion Gap 12 (12-20); Aspartate Amino Transferase 18 U/L (5-31); Bilirubin Total 0.6 mg/dL (0.0-1.0); Blood Urea Nitrogen 11 mg/dL (9-16); Calcium 9.8 mg/dL (8.4-10.2); Carbon Dioxide 26 mmol/L (22-29); Chloride 106 mmol/L (96-108); Cholesterol 218 mg/dL (<200); Estimated Glomerular Filt Rate > 60; Glucose Random 89 mg/dL (60-115); HDL Cholesterol 53 mg/dL (>40); LDL Cholesterol Calculated 145 mg/dL (<100); Potassium 4.4 mmol/L (3.3-5.1); Sodium 140 mmol/L (135-145); Total Protein 8.1 g/dL (6.5-8.0); Triglycerides 102 mg/dL (<150)
[2023-06-20 13:40] LABS: TSH reflex Free T4 0.36 uIU/mL (0.32-4.0)
[2023-06-20 13:54] LABS: Reflex LDLD? No
== END 2023-06-20 11:25 | disposition home or self-care (01) ==
LOC: HO.HHCL 11:24
PROVIDERS: Visit Provider Family Medicine
DX: E78.5 Hyperlipidemia, unspecified (principal); E03.9 Hypothyroidism, unspecified
CPT/HCPCS: 36415; 80053; 80061; 83036; 84443

== ENCOUNTER 2023-07-19 13:19 | Outpatient (REF) | payer OTHER, SELFPAY ==
--- NOTE | ~2023-07-19 | MM_ITS ---
EXAMINATION: BONE DENSITOMETRY CLINICAL INDICATION: Osteopenia. COMPARISON: Previous BD dated 05/06/2021 and baseline BD dated 03/02/2009. TECHNIQUE: Using a [employer] DXA System (software version: 13.1) manufactured by [employer], dual-energy x-ray absorptiometry was performed of the lumbar spine and left hip. The images are of good technical quality. Summary results are attached. FINDINGS: LEFT FEMUR, NECK: Current: BMD 0.848 g/cm2, Z-score -0.2, T-score -1.4, osteopenia. Prior: BMD 0.717 g/cm2. Baseline: BMD 0.999 g/cm2. LEFT FEMUR, TOTAL: Current: BMD 0.899 g/cm2, Z-score 0.1, T-score -0.9, normal, 14.1% increase from previous, 15.3% decrease from baseline (<5% change is not significant). Prior: BMD 0.788 g/cm2. Baseline: BMD 1.062 g/cm2. AP SPINE L1-L4: Current: BMD 1.107 g/cm2, Z-score 0.6, T-score -0.6, normal, 3.6% decrease from previous, 2.6% decrease from baseline (<5% change is not significant). Prior: BMD 1.148 g/cm2. Baseline: BMD 1.136 g/cm2. IDENTIFIED RISK FACTORS: Height loss, rheumatoid arthritis, secondary osteoporosis (hyperthyroidism), menopause. HISTORY OF FRACTURE: None listed. MEDICATIONS: Calcium supplements or multivitamin, vitamin D. MM/XR DEXA axial skeleton IMPRESSION: 1. DIAGNOSIS: Osteopenia based on the lowest T-score value of -1.4 in the femoral neck applying World Health Organization criteria. 2. 10-YEAR FRACTURE RISK PREDICTION, FRAX: Major osteoporotic fracture (clinical spine, forearm, hip or shoulder) 5.9%. Hip fracture 0.6%. 3. Treatment Recommendations: NOF guidelines recommend consideration for treatment in postmenopausal women and men age 50 and older presenting with the following: -A hip or vertebral (clinical or morphometric) fracture. -T-score less than or equal to -2.5 at the femoral neck or spine after appropriate evaluation to exclude secondary causes. -Low bone mass at the hip or spine and a 10-year fracture probability by FRAX of greater than or equal to 3% for hip fracture or greater than or equal to 20% for major osteoporotic fracture based on the [place] adapted WHO algorithm. 4. Other Recommendations: All treatment decisions require clinical judgment and consideration of individual patient factors, including patient preferences, comorbidities, previous drug use, risk factors not captured in the FRAX model (e.g. frailty, falls, vitamin D deficiency, increased bone turnover, interval significant decline in bone density) and possible under or overestimation of fracture risk by FRAX. Additional medical evaluation for secondary cause of low bone mineral density may be appropriate. FUTURE SCAN RECOMMENDATION: People with diagnosed cases of osteoporosis or at high risk for fracture should have regular bone mineral density tests. For patients eligible for Medicare, routine testing is allowed once every 2 years. The testing frequency can be increased to one year for patients who have rapidly progressing disease, those who are receiving or discontinuing medical therapy to restore bone mass, or have additional risk factors.
== END 2023-07-19 13:20 | disposition home or self-care (01) ==
LOC: HO.MAMMO 13:19
PROVIDERS: PCP Family Medicine; Visit Provider Family Medicine
DX: Z13.820 Encounter for screening for osteoporosis (principal); Z78.0 Asymptomatic menopausal state; M85.859 Other specified disorders of bone density and structure, unspecified thigh
CPT/HCPCS: 77080

== ENCOUNTER 2023-07-23 09:25 | Outpatient (AMB) | payer OTHER, SELFPAY ==
--- NOTE | 2023-07-23 09:32 | MHC.OFFVIS ---
Vital Signs 07/23/23 09:36 Height 5 ft 1 in Weight 178 lb BMI 33.6 BP 134/78 Blood Pressure Location Lt brachial Position Sitting Pulse 79 Intake Visit Reasons: Gastroesophageal reflux disease (GERD) Intake Note: Patient follow up for GERD and stool results. Patient cc: abdominal bloating, acid reflex with burning sensation and some swallowing problems with sticky food. 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 Accompanied by: Self / Same As Patient Allergies oxycodone [From Percocet] Allergy (Mild, Verified 07/23/23 09:32) ABDOMINAL PAIN amlodipine [From NORVASC] Adverse Reaction (Severe, Verified 07/23/23 09:32) STOMACH UPSET/ANXIETY Medication List - Last Reconciled 07/23/23 by Mary Fountain PA-C atorvastatin 80 mg PO DAILY calcium carbonate (Alcalak) 168 mg PO TID calcium carbonate-vitamin D3 600 mg-20 mcg (800 unit) 1 tab PO DAILY calcium polycarbophil (Fiber-Lax) 1,250 mg (2 x 625 mg) PO DAILY docusate sodium (Colace) 200 mg (2 x 100 mg) PO BEDTIME gabapentin 100 mg PO TID hydrocortisone 2.5% (Proctosol HC) 1 appl SD BEDTIME PRN hydroxyzine HCl 25 mg PO DAILY PRN ibuprofen 400 mg PO TID PRN levothyroxine 112 mcg PO DAILY 90 days loratadine (Allergy Relief (loratadine)) 10 mg PO DAILY menthol-zinc oxide 0.44-20.6 % (Calmoseptine) 1 appl topical BID PRN polyethylene glycol 3350 (Miralax) 17 grams PO DAILY HPI Comments Details: A 63 y/o female seen 12/2022- She is no longer taking ppi - does not feel acid- At times issue with swallowing rice -gets stuck- drinks water- it comes and goes She had an EGD at some point cannot recall- Appetite is good, no weight loss, no nausea, vomiting fever or chills Normal bowels no issues PFSH Medical History Anxiety Chronic constipation Hypothyroid 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 Obesity due to excess calories Osteopenia Renal cyst Vitamin D deficiency Surgical History Hx of tubal ligation History of carpal tunnel release Hx of eye surgery Hx of dilation and curettage Hx of repair of right rotator cuff Hx of repair of left rotator cuff Hx of colonoscopy Hx of esophagogastroduodenoscopy Hx of cataract removal with insertion of prosthetic lens Hx of section Family History Father Pulmonary edema without heart failure COPD (chronic obstructive pulmonary disease) Mother CVD (cardiovascular disease) Diabetes Sudden cardiac Sister Diabetes Schizo-affective schizophrenia Brother Throat cancer Epilepsy Social History Household Members Other:: son Housing: Apartment Are you a primary child day care teacher to a significant other at home: No Alcohol intake: never Patient Tobacco Use Status: Never used Tobacco Current occupational status: disabled Sexual orientation: Straight/Heterosexual Gender identity: Female Female Reproductive History Menstrual Age of Menarche: 12 Review of Systems Const All systems reviewed & are unremarkable except as noted in HPI and below ENT Reports dysphagia Card Denies dyspnea and Denies dyspnea on exertion Resp Denies dyspnea and Denies dyspnea on exertion GI Denies abdominal pain, Reports dysphagia, Denies nausea and Denies vomiting Physical Exam Vital Signs: Last Vital Signs Pulse 79 07/23/23 09:36 BP 134/78 07/23/23 09:36 BMI result Body Mass Index 33.6 Const General: cooperative, healthy appearing and comfortable Orientation/consciousness: patient oriented x3 Limitations: language barrier Eyes Sclerae: sclerae normal Resp Effort & Inspection: normal respiratory effort and able to speak in complete sentences Auscultation: clear to auscultation bilaterally, no rales, no rhonchi and no wheezes Cardio Rate: regular rate Rhythm: regular rhythm Heart sounds: S1 normal heart sound present and S2 normal heart sound present GI Palpation (GI): Soft to palpation and nontender Auscultation: normal bowel sounds Skin General skin exam: no rashes or lesions noted Neuro General: patient oriented x3 Extrem General: Yes full ROM Psych Appearance: grossly normal and well kempt Mental Status: mental status grossly normal Speech and movement: Normal speech and movement present Affect: Anxious affect present Attitude: cooperative Thought process: Flight of ideas present Thought content: Normal thought content present Assessment & Plan Assessment & Plan (1) Dysphagia: Comment: sx-reviewed- EGD 06/2018/ barium swallow 10/2018 Code(s): R13.10 - Dysphagia, unspecified Category: Medical Plan: BS- she will call for f/u after appt scheduled EGD r/o stricture-PUD/ esophagitis/ etc Plan Barium swallow- EGD Orders: Orders [place] barium swallow Today R13.10 - Dysphagia, unspecified Patient Instructions: Foods to avoid- rice/ lettuce- if chokes/ concerns 911- EGD rule out stricture, other endoscopic findings to account for her sx However will get barium swallow in the interim Reinforced importance chewing well eating slowly Encouraged to call with any questions or concerns, worsening of symptoms Coding Level of Care Code Est Pt Level 3 (93293) Diagnoses Dysphagia R13.10 Time Spent (min) 30 Comment interp
[2023-07-23 09:36] VITALS: BP 134/78; PULSE 79; BMI 33.6
== END 2023-07-23 10:07 | disposition home or self-care (01) ==
PROVIDERS: PCP Family Medicine; Visit Provider Physician Assistant
DX: R13.10 Dysphagia, unspecified (principal)
CPT/HCPCS: 99213

== ENCOUNTER → 2023-07-23 09:25 | Outpatient (BNVA) | payer OTHER, SELFPAY | PROVIDERS: PCP Family Medicine; Visit Provider Physician Assistant | DX: R13.10 Dysphagia, unspecified (principal) | CPT/HCPCS: 99212 ==

== ENCOUNTER 2023-09-13 09:00 | Outpatient (AMB) | payer OTHER, SELFPAY ==
--- NOTE | 2023-09-13 09:02 | MHC.OFFVIS ---
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 History Name: Mikayla KHAN Information Interpreted: non-clinical & clinical Network Designer: Network Designer Present (Mikayla KHAN) Accompanied by: Self / Same As Patient Allergies oxycodone [From Percocet] Allergy (Mild, Verified 09/13/23 09:09) ABDOMINAL PAIN amlodipine [From NORVASC] Adverse Reaction (Severe, Verified 09/13/23 09:09) STOMACH UPSET/ANXIETY Post menopausal: Yes HPI Comments Details: Presenting for annual exam. No complaints. 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 Chronic constipation Anxiety Hypothyroid Vitamin D deficiency Surgical History Hx of tubal ligation History of carpal tunnel release Hx of eye surgery Hx of dilation and curettage Hx of repair of right rotator cuff Hx of repair of left rotator cuff Hx of colonoscopy Hx of esophagogastroduodenoscopy Hx of cataract removal with insertion of prosthetic lens Hx of section Family History Father Pulmonary edema without heart failure COPD (chronic obstructive pulmonary disease) Mother CVD (cardiovascular disease) Diabetes Sudden cardiac Sister Diabetes Schizo-affective schizophrenia Brother Throat cancer Epilepsy Social History Household Members Other:: son Housing: Apartment Are you a primary caretaker to a significant other at home: No Alcohol intake: never Patient Tobacco Use Status: Never used Tobacco Current occupational status: disabled Sexual orientation: Straight/Heterosexual Gender identity: Female Female Reproductive History Menstrual Age of Menarche: 12 Total pregnancies: 4 Full term: 3 Number of Living Children: 3 Ab spontaneous: 1 Date of last pap smear: 03/16/20 Date of Mammogram: 07/19/23 Date of last Bone Density Screenin04/13/23 Review of Systems Const All systems reviewed & are unremarkable except as noted in HPI and below Card Reports as per HPI Resp Reports as per HPI GI Reports as per HPI and Reports no additional complaints Reports as per HPI Physical Exam Vital Signs: Last Vital Signs BP 124/82 09/13/23 09:03 BMI result Body Mass Index 33.3 Const General: cooperative, healthy appearing and comfortable Chest Chest palpation & inspection: normal inspection of the chest and normal palpation of entire chest wall Breast/axilla inspection: normal inspection of the breasts and normal inspection of the axillae Breast/axilla palpation: normal palpation of the breasts, normal palpation of the axillae and no axillary lymphadenopathy Resp Effort & Inspection: normal respiratory effort Auscultation: clear to auscultation bilaterally Percussion: percussion normal Cardio Palpation: normal PMI Rate: regular rate Rhythm: regular rhythm Heart sounds: no murmurs and no rubs Peripheral pulses: Peripheral pulses 2+ throughout GI Inspection: Yes normal to inspection Palpation (GI): Soft to palpation, nontender, no guarding, not rigid and No hepatosplenomegaly present Percussion: Yes normal to percussion Auscultation: normal bowel sounds Rectal Exam - Female: deferred General: Yes bladder normal to palpation External Female Exam: No lesion Speculum Exam - Vagina: normal appearance of the vagina, normal palpation, normal vaginal discharge and not erythematous Speculum Exam - Cervix: normal appearance of the cervix and normal palpation Bimanual exam- vagina & uterus: normal bimanual exam, normal palpation, uterine size normal, bladder normal to palpation, consistency normal and normal palpation Bimanual Exam- Adnexa, other: normal adnexae, no masses and no tenderness Assessment & Plan Assessment & Plan (1) Well woman exam: Code(s): Z01.419 - Encounter for gynecological examination (general) (routine) without abnormal findings Category: Medical Plan: Co testing not indicated this year. Counseled the patient about the recommended dietary allowance of 1200 mg of Calcium & 600 IU of vitamin D. Instructions given the patient to schedule next screening Mammogram in 04/15. The patient was instructed to perform monthly self-breast exams and schedule annual exam in a year. All questions answered and the patient verbalized understanding. Coding Level of Care Code Est Pt Prev Care >65y(50048) Diagnoses Well woman exam Z01.419
[2023-09-13 09:03] VITALS: BP 124/82; BMI 33.3
== END 2023-09-13 09:31 | disposition home or self-care (01) ==
LOC: HO.HWS 09:00
PROVIDERS: PCP Family Medicine; Visit Provider Obstetrics & Gynecology
DX: Z01.419 Encounter for gynecological examination (general) (routine) without abnormal findings (principal)
CPT/HCPCS: 99397

== ENCOUNTER → 2023-09-13 09:00 | Outpatient (BNVA) | payer OTHER, SELFPAY | PROVIDERS: PCP Family Medicine; Visit Provider Obstetrics & Gynecology ==

== ENCOUNTER 2023-09-20 09:42 | Outpatient (REF) | payer OTHER, SELFPAY ==
--- NOTE | ~2023-09-20 | US_ITS ---
EXAMINATION: US RETROPERITONEAL COMPLETE (RENAL) CLINICAL INFORMATION: Follow-up renal cysts. COMPARISON: Renal ultrasound dated 07/26/2021; CT abdomen and pelvis dated 10/18/2008 TECHNIQUE: Real-time imaging of the kidneys and bladder. FINDINGS: RIGHT KIDNEY: 10.1 x 3.9 x 6.3 cm (SAG x AP x TRV). The kidney is normal in size, contour, and echogenicity. Renal cortical thickness is normal. No calculi or focal parenchymal lesions. No hydronephrosis. At the upper pole, a 1.2 x 1.3 x 1.3 cm mildly complex cyst is seen, with equivocal wall calcification. At the interpolar aspect, an 8 x 6 x 8 mm mildly complex cyst is seen, with equivocal wall calcification. These are stable from the ultrasound examination dated 08/18/2022, and they remain stable in sizes from the CT examination of 10/18/2008. LEFT KIDNEY: 10.5 x 4.8 x 5.5 cm (SAG x AP x TRV). The kidney is normal in size, contour, and echogenicity. Renal cortical thickness is normal. No calculi or focal parenchymal lesions. No hydronephrosis. At the interpolar aspect, a 1.3 x 1.2 x 1.6 cm mildly complex cyst with fine septation is seen. This is unchanged from the ultrasound examination of 08/18/[address] examination of 10/18/2008 (102:50). At the lower pole, 8 mm 1.0 cm benign, simple cysts are redemonstrated. US/US renal BI IMPRESSION: There are continued stable likely benign mildly complex and benign simple bilateral renal cysts. No further imaging follow-up is recommended. Electronically signed by: Ariel Norman MD 10/15/2023 01:39 PM EDT Workstation: [id number]
== END 2023-09-20 09:43 | disposition home or self-care (01) ==
LOC: HO.US 09:42
PROVIDERS: PCP Family Medicine; Visit Provider Nurse Practitioner Family
DX: N28.1 Cyst of kidney, acquired (principal)
CPT/HCPCS: 76775

== ENCOUNTER 2023-09-24 07:42 | Day surgery (SDC) | payer OTHER, SELFPAY ==
--- NOTE | 2023-09-21 09:14 | P.CONAN_ITS ---
HPI - Anesthesia Eval Consult details Narrative: 63yo F for Upper Endoscopy PMF Active Problems Active Problems: All Active Problems History of Helicobacter pylori infection (Acute) Renal cyst (Acute) Nausea (Acute) H. 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 (Acute) Hemorrhoids (Acute) Encounter for FIT (fecal immunochemical test) screening (Acute) S/P colonoscopy (Acute) Diverticulosis of colon (Acute) Well woman exam (Acute) Encounter for screening colonoscopy (Acute) Chronic constipation (Acute) Vitamin D deficiency (Acute) Past Medical History Medical History Renal cyst Obesity due to excess calories Osteopenia 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 Chronic constipation Anxiety Hypothyroid Vitamin D deficiency Family History Family History Father Pulmonary edema without heart failure COPD (chronic obstructive pulmonary disease) Mother CVD (cardiovascular disease) Diabetes Sudden cardiac Sister Diabetes Schizo-affective schizophrenia Brother Throat cancer Epilepsy Surgical History Surgical History Hx of tubal ligation History of carpal tunnel release Hx of eye surgery Hx of dilation and curettage Hx of repair of right rotator cuff Hx of repair of left rotator cuff Hx of colonoscopy Hx of esophagogastroduodenoscopy Hx of cataract removal with insertion of prosthetic lens Hx of section Social History Social History Household Members Other:: son Housing: Apartment Are you a primary hearing healthcare practitioner to a significant other at home: No Alcohol intake: never Patient Tobacco Use Status: Never used Tobacco Second Hand Smoke Exposure: No Current occupational status: disabled Sexual orientation: Straight/Heterosexual Gender identity: Female Meds Allergies Allergy/AdvReac Type Severity Reaction Status Date / Time oxycodone [From Percocet] Allergy Mild ABDOMINAL Verified 09/13/23 09:09 PAIN amlodipine [From NORVASC] AdvReac Severe STOMACH Verified 09/13/23 09:09 UPSET/ANXIETY Home Medications ?Medication ?Instructions ?Recorded ?Confirmed ?Last Taken ?Type calcium carbonate (Alcalak) 168 mg PO TID 03/15/20 12/20/22 Unknown History loratadine 10 mg tablet (Allergy 10 mg PO DAILY 09/24/20 12/20/22 Unknown History Relief (loratadine)) calcium carbonate 600 mg-vitamin 1 tab PO DAILY 07/13/21 12/20/22 Unknown History D3 20 mcg (800 unit) tablet atorvastatin 80 mg tablet 80 mg PO DAILY 03/31/22 12/20/22 Unknown History hydroxyzine HCl 25 mg tablet 25 mg PO DAILY PRN anxiety 03/31/22 12/20/22 Unknown History Assessment and Plan Assessment Anesthesia Assessment: Chart Reviewed
--- NOTE | 2023-09-24 08:09 | MHC.SHP ---
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 Chronic constipation Anxiety Hypothyroid Vitamin D deficiency) History of Previous Operations: Relevant previous surgery/procedure and date(s) (Hx of tubal ligation History of carpal tunnel release Hx of eye surgery Hx of dilation and curettage Hx of repair of right rotator cuff Hx of repair of left rotator cuff Hx of colonoscopy Hx of esophagogastroduodenoscopy Hx of cataract removal with insertion of prosthetic lens Hx of section) Allergies: Allergies Allergy/AdvReac Type Severity Reaction Status Date / Time oxycodone [From Percocet] Allergy Mild ABDOMINAL Verified 09/13/23 09:09 PAIN amlodipine [From NORVASC] AdvReac Severe STOMACH Verified 09/13/23 09:09 UPSET/ANXIETY Review of Systems Sugical H&P ROS: Negative: Constitution, Cardiovascular, Respiratory, Neurological, Psychiatric, Hem-Onc, Allergic/Immunologic, Gastrointestinal, Genitourinary, Musculoskeletal, Integumentary, Endocrine and Eyes/Ears/Nose/Throat Exam Surgical H&P Exam: Normal: HEENT, Normal: Heart, Normal: Lungs, Normal: Extremities, Normal: Abdomen, Normal: Skin and Normal: Neurological Plan Diagnosis/Plan: Unchanged I have reviewed the history and physical and performed a pertinent physical examination on my patient. No changes have occurred unless specified. Time Spent With Patient Time: Total time managing care of this patient today ____ minutes.
[2023-09-24 08:30] VITALS: BP 128/76; PULSE 77; RESP 16; TEMP 36.4; O2SAT 97; BMI 33.6
[2023-09-24] MEDS: Lactated Ringers 1,000 ML 100 ML IVCONT (08:32)
--- NOTE | 2023-09-24 09:02 | W.PM.OPN ---
Operative Note Operative Note Date of Service: 09/24/23 Narrative: Procedure Description: EGD Indication: dysphagia Anesthesia: MAC FLEXIBLE TRANSORAL UPPER GASTROINTESTINAL ENDOSCOPY UPPER ENDOSCOPY Consent: Indications for the procedure and potential complications of bleeding, perforation, reaction to medications and missed diagnosis were discussed with the patient and informed consent was obtained. Instrument: Olympus GIF H 190 J mid size upper endoscope Monitoring: Vital signs and clinical assessment, continuous EKG monitoring, Pulse oximetry, Carbon Dioxide monitoring and blood pressure monitoring were done throughout the procedure. Procedure: The patient was placed in the left lateral decubitis position and pre-procedure medications were administered and a bite block was placed. The endoscope was inserted into the mouth and advanced under direct vision to the third part of duodenum. A careful inspection was made as the upper endoscope was withdrawn including a retroflexed examination of the proximal stomach; Findings and interventions are described below. Findings: Larynx:normal Esophagus: GE junction at 34 cm, diaphragm hiatus at 36 cm, consistent with small hiatal hernia, erythema and edema noted consistent with moderate esophagitis, bx taken from GEJ, distal and proximal esophagus, --balloon dilation done to 20 mm at LES and UES--no tears seen Stomach: patchy erythema with antral erosions noted . Biopsies were obtained. Grade 2 flap valve on retroflexed examination of the cardia. Duodenum: Patchy erythema, bx taken Intervention: Biopsies as noted above, balloon dilation Impression/Findings: gastritis duodenitis esophagitis hiatal hernia PLAN: confirm if taking PPI GERD precautions If h pylori pos treat limit nsaid use, or can use celebrex
[2023-09-24 09:08] VITALS: BP 115/70; PULSE 80; RESP 14; TEMP 36.4; O2SAT 93
[2023-09-24 09:23] VITALS: BP 123/81; PULSE 80; RESP 16; TEMP 36.6; O2SAT 96
[2023-09-24 09:38] VITALS: BP 133/82; PULSE 66; RESP 18; TEMP 36.9; O2SAT 99
== END 2023-09-24 10:05 | disposition home or self-care (01) ==
PROVIDERS: PCP Family Medicine; Visit Provider Internal Medicine Gastroenterology
PROC: 0DJ08ZZ Inspection of Upper Intestinal Tract, Via Natural or Artificial Opening Endoscopic (ICD-10-PCS; CPT 43235; principal; 2023-09-24 11:10)
DX: R13.10 Dysphagia, unspecified (principal); K22.2 Esophageal obstruction; K29.80 Duodenitis without bleeding; K44.9 Diaphragmatic hernia without obstruction or gangrene; K20.80 Other esophagitis without bleeding; K29.50 Unspecified chronic gastritis without bleeding; K59.09 Other constipation; N28.1 Cyst of kidney, acquired; M85.80 Other specified disorders of bone density and structure, unspecified site; E55.9 Vitamin D deficiency, unspecified; E06.3 Autoimmune thyroiditis; E66.01 Morbid (severe) obesity due to excess calories; Z68.33 Body mass index [BMI] 33.0-33.9, adult; F41.9 Anxiety disorder, unspecified; Z79.1 Long term (current) use of non-steroidal anti-inflammatories (NSAID); Z79.899 Other long term (current) drug therapy; Z88.5 Allergy status to narcotic agent; Z88.8 Allergy status to other drugs, medicaments and biological substances; Z98.890 Other specified postprocedural states
CPT/HCPCS: 43249; 43239; 88305; 88313; 88342; C1726; J2704

== ENCOUNTER → 2023-09-24 07:42 | Outpatient (BNV) | payer OTHER, SELFPAY | PROVIDERS: PCP Family Medicine; Visit Provider Internal Medicine Gastroenterology | DX: R13.10 Dysphagia, unspecified (principal); K20.90 Esophagitis, unspecified without bleeding; K29.70 Gastritis, unspecified, without bleeding; K29.80 Duodenitis without bleeding | CPT/HCPCS: 43239; 43249 ==

== ENCOUNTER 2023-11-01 10:23 | Outpatient (REF) | payer OTHER, SELFPAY ==
[2023-11-01 17:00] LABS: Urine Cytology See Pathology rpt
== END 2023-11-01 10:24 | disposition home or self-care (01) ==
LOC: HO.LNP 10:23
PROVIDERS: PCP Family Medicine; Visit Provider Nurse Practitioner Family
DX: K21.9 Gastro-esophageal reflux disease without esophagitis (principal); N28.1 Cyst of kidney, acquired; R31.29 Other microscopic hematuria; Z87.440 Personal history of urinary (tract) infections
CPT/HCPCS: 81003; 87086; 88112; 99212

== ENCOUNTER 2023-11-01 10:23 | Outpatient (AMB) | payer OTHER, SELFPAY ==
--- NOTE | 2023-11-01 10:25 | A.OFFVIS_ITS ---
Intake Visit Reasons: 1yr follow up /US(set) Intake Note: Patient presents today for follow up on: renal cyst and ultrasound results Imaging Completed:09/20/23 Urology Medications: none Blood Thinner: none Filling And Stapling Machine Operator Required: Yes Filling And Stapling Machine Operator Services: Filling And Stapling Machine Operator Present Filling And Stapling Machine Operator Name: Peggy HernandezBreannaMAUREEN Accompanied by: Self / Same As Patient Allergies oxycodone [From Percocet] Allergy (Mild, Verified 11/01/23 11:02) ABDOMINAL PAIN amlodipine [From NORVASC] Adverse Reaction (Severe, Verified 11/01/23 11:02) STOMACH UPSET/ANXIETY Medication List - Last Reconciled 11/01/23 by NAIMA Salomon-DOV atorvastatin 80 mg PO DAILY calcium carbonate (Alcalak) 168 mg PO TID calcium carbonate-vitamin D3 600 mg-20 mcg (800 unit) 1 tab PO DAILY calcium polycarbophil (Fiber-Lax) 1,250 mg (2 x 625 mg) PO DAILY docusate sodium (Colace) 200 mg (2 x 100 mg) PO BEDTIME gabapentin 100 mg PO TID hydrocortisone 2.5% (Proctosol HC) 1 appl [place] BEDTIME PRN hydroxyzine HCl 25 mg PO DAILY PRN ibuprofen 400 mg PO TID PRN levothyroxine 112 mcg PO DAILY 90 days loratadine (Allergy Relief (loratadine)) 10 mg PO DAILY menthol-zinc oxide 0.44-20.6 % (Calmoseptine) 1 appl topical BID PRN polyethylene glycol 3350 (Miralax) 17 grams PO DAILY HPI Comments Details: Trina is a pleasant 63-year-old Citizen Of [place]-speaking female patient of Dr. Cardozo. She has a past medical history of anxiety, chronic constipation, hypothyroidism, osteopenia, vitamin-D deficiency, and bilateral renal cysts. She presents to the office today for follow-up of her renal cysts. Recent renal imaging results reviewed with the patient today. They are continued stable likely benign mildly complex and benign simple bilateral renal cysts. No further imaging follow-up is recommended per radiology report. In office urinalysis results reviewed with the patient today 3+ leukocytes negative nitrates 2+ microscopic hematuria. She currently denies any UTI like symptoms however has a history of urinary tract infections with no UTI like symptoms therefore will send for urine culture. She otherwise denies any bothersome urinary issues or concerns. She reports be happy with current voiding parameters. She discusses her ongoing issues with GERD. When asked she denies urinary urgency, urinary frequency, incontinence, nocturia, hematuria, dysuria, foul smelling urine, changes to urinary stream, flank pain, fever, and or chills. We discussed at length potential causes of renal cysts as well as microscopic hematuria.. She otherwise offers no issues or concerns at this time. 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 Chronic constipation Anxiety Hypothyroid Vitamin D deficiency Surgical History Hx of tubal ligation History of carpal tunnel release Hx of eye surgery Hx of dilation and curettage Hx of repair of right rotator cuff Hx of repair of left rotator cuff Hx of colonoscopy Hx of esophagogastroduodenoscopy Hx of cataract removal with insertion of prosthetic lens Hx of section Family History Father Pulmonary edema without heart failure COPD (chronic obstructive pulmonary disease) Mother CVD (cardiovascular disease) Diabetes Sudden cardiac Sister Diabetes Schizo-affective schizophrenia Brother Throat cancer Epilepsy Social History Household Members Other:: son Housing: Apartment Are you a primary neurocritical care physician to a significant other at home: No Alcohol intake: never Patient Tobacco Use Status: Never used Tobacco Second Hand Smoke Exposure: No Current occupational status: disabled Sexual orientation: Straight/Heterosexual Gender identity: Female Female Reproductive History Menstrual Age of Menarche: 12 Review of Systems Eyes Reports no additional complaints ENT Reports no additional complaints Card Reports no additional complaints Resp Reports no additional complaints GI Reports as per HPI Reports as per HPI Musc Reports as per HPI Neuro Reports no additional complaints Psych Reports as per HPI Endo Reports no additional complaints Ace/Lymph Reports no additional complaints Aller/Immun Reports no additional complaints Physical Exam Const General: cooperative, healthy appearing, comfortable, no acute distress, well developed, alert and awake Orientation/consciousness: patient oriented x3 Limitations: no limitations HEENT Head: Yes normal to inspection, Yes normocephalic and Yes atraumatic Ears: hearing grossly normal bilaterally Eyes General: appearance normal, both eyes and all related structures Neck Neck: Yes normal visual inspection and Yes trachea midline Chest Chest palpation & inspection: normal inspection of the chest Resp Effort & Inspection: normal respiratory effort and able to speak in complete sentences Cardio Rate: regular rate GI Inspection: Yes normal to inspection General: Yes no CVA tenderness Back/Spine/Pelvis Back: no CVA tenderness Skin General skin exam: no rashes or lesions noted Neuro General: patient oriented x3 Extrem General: Yes normal to inspection Psych Appearance: grossly normal and well kempt Mental Status: mental status grossly normal Speech and movement: Normal speech and movement present and Clear speech present Affect: normal affect Attitude: cooperative Thought process: Normal thought process present Thought content: Normal thought content present Insight: Fair insight present (Psych) Judgement: Fair judgement present (Psych) Results AMB Urinalysis, Automated UA Leukoctes 500 Jamie/uL Last Edit by Recovr on 11/01/23 10:34 UA Nitrite Last Edit by Recovr on 11/01/23 10:34 UA Urobilinogen 0.2 mg/dL Last Edit by Recovr on 11/01/23 10:34 UA Protein 15 mg/dL Last Edit by Recovr on 11/01/23 10:34 UA pH 6.0 Last Edit by Recovr on 11/01/23 10:34 UA Blood 80 Brett/uL Last Edit by Recovr on 11/01/23 10:34 UA Specific Norman 1.015 Last Edit by Recovr on 11/01/23 10:34 UA Ketone Last Edit by Recovr on 11/01/23 10:34 UA Bilirubin 0 mg/dL Last Edit by Recovr on 11/01/23 10:34 UA Glucose 0 mg/dL Last Edit by Recovr on 11/01/23 10:34 Results Reviewed Results Reviewed: Laboratory Last Values Urine pH (Auto) 6.0 11/01/23 10:29 Specific Norman (Auto) 1.015 11/01/23 10:29 Urine Protein (Auto) 15 mg/dL 11/01/23 10:29 Glucose (UA)(Auto) 0 mg/dL 11/01/23 10:29 Urine Blood (Auto) 80 Brett/uL 11/01/23 10:29 Urine Bilirubin (Auto) 0 mg/dL 11/01/23 10:29 Urine Urobilinogen (Auto) 0.2 mg/dL 11/01/23 10:29 Leukocyte Esterase (Auto) 500 Jamie/uL 11/01/23 10:29 Date of Service: 09/20/23 EXAMINATION: US RETROPERITONEAL COMPLETE (RENAL) FINDINGS: RIGHT KIDNEY: 10.1 x 3.9 x 6.3 cm (SAG x AP x TRV). The kidney is normal in size, contour, and echogenicity. Renal cortical thickness is normal. No calculi or focal parenchymal lesions. No hydronephrosis. At the upper pole, a 1.2 x 1.3 x 1.3 cm mildly complex cyst is seen, with equivocal wall calcification. At the interpolar aspect, an 8 x 6 x 8 mm mildly complex cyst is seen, with equivocal wall calcification. These are stable from the ultrasound examination dated 08/18/2022, and they remain stable in sizes from the CT examination of 10/18/2008. LEFT KIDNEY: 10.5 x 4.8 x 5.5 cm (SAG x AP x TRV). The kidney is normal in size, contour, and echogenicity. Renal cortical thickness is normal. No calculi or focal parenchymal lesions. No hydronephrosis. At the interpolar aspect, a 1.3 x 1.2 x 1.6 cm mildly complex cyst with fine septation is seen. This is unchanged from the ultrasound examination of 08/18/[address] examination of 10/18/2008 (102:50). At the lower pole, 8 mm 1.0 cm benign, simple cysts are redemonstrated. IMPRESSION: There are continued stable likely benign mildly complex and benign simple bilateral renal cysts. No further imaging follow-up is recommended. Assessment & Plan Assessment & Plan (1) Renal cyst: Code(s): N28.1 - Cyst of kidney, acquired Category: Medical (2) Microscopic hematuria: Code(s): R31.29 - Other microscopic hematuria Category: Medical (3) History of UTI: Code(s): Z87.440 - Personal history of urinary (tract) infections Category: Medical Plan In office urinalysis results reviewed with the patient today; as noted above; will send for urine culture; will send for urine cytology; will await results for potential treatment. Patient currently denies any UTI like symptoms. She reports be happy with current voiding parameters. Recent renal imaging results reviewed with the patient today; as noted above. Discussed at length potential causes of renal cysts, recurrent urinary tract infections, and microscopic hematuria. Discussed, educated, and stressed the importance of adequate hydration in relation to overall health and well-being. Will obtain renal ultrasound in 1 year. Follow-up in 1 year with imaging to be completed prior; or sooner with any issues, concerns, and or questions. Orders: Orders AMB Urinalysis Automated Today Z13.9 - Encounter for screening, unspecified Urine Culture Today Z13.9 - Encounter for screening, unspecified US renal BI 1 Year N20.0 - Calculus of kidney Urine Cytology Today Z13.9 - Encounter for screening, unspecified Patient Instructions: The patient had an opportunity to ask questions regarding the treatment plan. All questions were answered. Physical exam, labs, and imaging were discussed and reviewed in detail. As well as risks, benefits, and discussion of treatment choices. No major barriers to understanding were identified. The patient expressed understanding and agreement with the above treatment plan. The patient was made aware they should contact our office by phone for worsening of their current condition, the appearance of new symptoms, or with any questions or concerns. Compliance is encouraged with any medications and follow up testing that is ordered. It is a privilege to be allowed the opportunity to participate in? your urological care.? Again, if you have any questions or concerns If you have any questions or concerns please do not hesitate to contact me. The office is [phone]. This note is constructed using voice recognition software. While every effort has been made to ensure accuracy cover stitch machine operator errors may have been included. Yours sincerely, BETI Salomon Coding Level of Care Code Est Pt Level 3 (64171) Diagnoses Renal cyst N28.1 Microscopic hematuria R31.29 History of UTI Z87.440
== END 2023-11-01 10:53 | disposition home or self-care (01) ==
PROVIDERS: PCP Family Medicine; Visit Provider Nurse Practitioner Family
DX: N28.1 Cyst of kidney, acquired (principal); R31.29 Other microscopic hematuria; Z87.440 Personal history of urinary (tract) infections; Z13.9 Encounter for screening, unspecified
CPT/HCPCS: 99213

== ENCOUNTER 2023-11-12 11:21 | Outpatient (REF) | payer OTHER, SELFPAY ==
--- NOTE | ~2023-11-12 | XR_ITS ---
EXAMINATION: XR TEMPOROMANDIBULAR JOINT, BILATERAL CLINICAL INFORMATION: left TMJ pain . COMPARISON: None available. TECHNIQUE: Views of the bilateral temporomandibular joints were obtained. 5 images were obtained and bilateral] also and open-mouth positions along with a Pretty's view. FINDINGS: RIGHT TMJ: Normal appearance of the temporal eminence. Mandibular condyle demonstrates minimal subchondral sclerosis and cystic change, consistent with mild degenerative arthropathy. No significant spurs. There is normal positioning in the open and closed mouth positions with normal anterior translation of the condyle. LEFT TMJ: Normal appearance of the temporal eminence. Mandibular condyle demonstrates flattening, subchondral sclerosis, and mild anterior spurring, consistent with moderate degenerative arthropathy. There is joint space loss in the postoperative position. There is normal positioning in the open and closed mouth positions with normal anterior translation of condyle. OTHER: Paranasal sinuses appear normally pneumatized. Orbits appear intact. No focal bone lesions. Sella is normal in size. Soft tissues appear normal. Lung apices clear. XR/XR TMJ BI IMPRESSION: 1. 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 2. Normal anterior translation in the open mouth position bilaterally. 3. If more information is deemed necessary, TM joint MRI could be considered. Electronically signed by: Lowell Arriaza MD 01/21/2024 09:29 AM BETSEY
== END 2023-11-12 11:22 | disposition home or self-care (01) ==
LOC: HO.XRAY 11:21
PROVIDERS: PCP Student in an Organized Health Care Education/Training Program; Visit Provider Student in an Organized Health Care Education/Training Program
DX: M26.622 Arthralgia of left temporomandibular joint (principal)
CPT/HCPCS: 70330

== ENCOUNTER → 2023-11-12 11:24 | Outpatient (BNV) | payer OTHER, SELFPAY | PROVIDERS: PCP Student in an Organized Health Care Education/Training Program; Visit Provider Radiology Diagnostic Radiology | DX: M26.622 Arthralgia of left temporomandibular joint (principal) | CPT/HCPCS: 70330 ==

== ENCOUNTER 2023-11-28 08:44 | Outpatient (REF) | payer OTHER, SELFPAY ==
--- NOTE | ~2023-11-28 | FL_ITS ---
EXAMINATION: XR FLUOROSCOPY UPPER GI WITH AIR CLINICAL INFORMATION: Dysphagia COMPARISON: 11/04/2018 TECHNIQUE: Fluoroscopic air contrast upper GI examination was performed utilizing standard techniques with thin and thick barium and effervescent granules. Numerous spot images were obtained. FINDINGS: Lateral cine images of the oropharynx and hypopharynx demonstrate normal swallow mechanism with normal epiglottic inversion and soft palate elevation. No tracheal penetration, glottic or subglottic aspiration identified. No nasopharyngeal reflux present. Hypopharyngeal structures appear normal without evidence of mass or diverticulum. There was no significant cricopharyngeal achalasia. Dual and single contrast images of the esophagus demonstrate a normal caliber with a corkscrew appearance. No evidence of stricture, mass, or ulcerations identified. Esophageal peristalsis is moderately disorganized. A small type I hiatal hernia is present. Gastroesophageal reflux is seen up to the thoracic inlet. Dual contrast and single contrast images of the stomach demonstrated normal contour and mucosal pattern without evidence of mass, ulceration, or other abnormality. Contrast freely passed into the gastric antrum and duodenal bulb without delay. Single and air-contrast images of the duodenal bulb demonstrate no abnormality. The duodenal sweep has a normal appearance, course, and mucosal fold appearance. The imaged proximal jejunum has a normal fold pattern and caliber. FLUOROSCOPY TIME: 4 minutes 27 seconds DOSE AREA PRODUCT: 2871 uGy-m2 (microgray-meter squared) FL/FL barium swallow IMPRESSION: 1. Corkscrew appearance of the esophagus with moderately disorganized peristalsis consistent with esophageal dysmotility. 2. Small type I hiatal hernia with significant gastroesophageal reflux. This procedure was performed by Héctor Steen PA-C, and supervised by Dr. Arriaza Electronically signed by: Lowell Arriaza MD 11/29/2023 12:56 PM EDT
== END 2023-11-28 08:45 | disposition home or self-care (01) ==
LOC: HO.XRAY 08:44
PROVIDERS: PCP Family Medicine; Visit Provider Physician Assistant
DX: R13.10 Dysphagia, unspecified (principal)
CPT/HCPCS: 74220

== ENCOUNTER → 2023-11-28 08:45 | Outpatient (BNV) | payer OTHER, SELFPAY | PROVIDERS: PCP Family Medicine; Visit Provider Radiology Diagnostic Radiology | DX: R13.10 Dysphagia, unspecified (principal) | CPT/HCPCS: 74221 ==

== ENCOUNTER 2023-12-24 11:37 | Outpatient (REF) | payer OTHER, SELFPAY ==
[2023-12-26 23:49] LABS: TS Negative Control Passed; TS Panel A 0; TS Panel B 0; TS Positive Control Passed; TSpotTB Negative (Negative)
== END 2023-12-24 11:38 | disposition home or self-care (01) ==
LOC: HO.HHCL 11:37
PROVIDERS: Visit Provider Family Medicine
DX: Z11.1 Encounter for screening for respiratory tuberculosis (principal)
CPT/HCPCS: 36415; 86481

== ENCOUNTER 2024-01-15 08:47 | Emergency (ER) | payer OTHER, SELFPAY ==
--- NOTE | ~2024-01-15 | XR_ITS ---
EXAMINATION: XR CHEST CLINICAL INFORMATION: Cough after inhaling bleach. COMPARISON: None available. TECHNIQUE: Frontal view of the chest was obtained. FINDINGS: Thoracolumbar scoliosis. There is no gross pneumothorax. No significant pleural effusion. No significant focal consolidation. Stable cardiomediastinal silhouette. Heart size within normal limits. XR/XR chest 1V IMPRESSION: No evidence of pneumonia. This study was presented today January 15, 2024 for interpretation. Stat results provided at this time as requested by referring provider. Electronically signed by: Gem Belcher MD 01/15/2024 12:56 PM [facility]
[2024-01-15 09:01] VITALS: BP 119/80; PULSE 80; RESP 18; TEMP 37; O2SAT 99; BMI 27.2
--- NOTE | 2024-01-15 10:32 | ED_ITS ---
HPI - General Adult General Chief complaint: General Medical Stated complaint: Dizziness Time Seen by Provider: 01/15/24 09:55 Source: patient and family (son) Mode of arrival: ambulatory Limitations: no limitations History of Present Illness ED Provider: ABELARDO SAAB PA-C HPI narrative: 63 year old yakut speaking female with pmhx significant for HTN, chronic constipation, diverticulosis, Delma thyroiditis, GERD, h pylori presents tot he ED today for evaluation of dizziness on waking this morning. Patient states that she was cleaning her bathroom with a large amount of bleach yesterday when she began to have a coughing fit. Reports intermittent dry cough since. Admits to waking up this morning with one episode of dizziness. She states that she stood out of bed and began walking when she felt as though the room was spinning. She she sat back down and the dizziness completely resolved. No further episodes. Denies any difficulty ambulating. Endorses history of hypertension managed with medications. She has never had an issue with low blood pressure. She denies headache, vision changes, fever, chills, neck pain, chest pain, palpitations, sob, hemoptysis, leg pain/ swelling. Related Data Home Medications ?Medication ?Instructions ?Recorded ?Confirmed calcium carbonate (Alcalak) 168 mg PO TID 03/15/20 12/20/22 loratadine 10 mg tablet (Allergy 10 mg PO DAILY 09/24/20 12/20/22 Relief (loratadine)) calcium 600 mg (as 1 tab PO DAILY 07/13/21 12/20/22 carbonate)-vitamin D3 20 mcg (800 unit) tablet atorvastatin 80 mg tablet 80 mg PO DAILY 03/31/22 12/20/22 hydroxyzine HCl 25 mg tablet 25 mg PO DAILY PRN anxiety 03/31/22 12/20/22 Previous Rx's ?Medication ?Instructions ?Recorded menthol 0.44 %-zinc oxide 20.6 % 1 appl topical BID PRN skin 08/01/21 topical ointment (Calmoseptine) irritation #113 grams levothyroxine 112 mcg capsule 112 mcg PO DAILY 90 days #90 caps 10/26/21 gabapentin 100 mg capsule 100 mg PO TID #90 caps 11/14/21 ibuprofen 400 mg tablet 400 mg PO TID PRN pain #90 tabs 03/31/22 docusate sodium 100 mg capsule 200 mg (2 x 100 mg) PO BEDTIME #60 12/20/22 (Colace) caps hydrocortisone 2.5 % topical cream 1 appl OR BEDTIME PRN hemorrhoids 12/20/22 with perineal applicator #30 grams (Proctosol HC) polyethylene glycol 3350 17 17 g PO DAILY #510 grams 12/20/22 gram/dose oral powder (Miralax) calcium polycarbophil 625 mg 1,250 mg (2 x 625 mg) PO DAILY #60 03/13/23 tablet (Fiber-Lax) tabs Allergies Allergy/AdvReac Type Severity Reaction Status Date / Time oxycodone [From Percocet] Allergy Mild ABDOMINAL Verified 01/15/24 09:03 PAIN amlodipine [From NORVASC] AdvReac Severe STOMACH Verified 01/15/24 09:03 UPSET/ANXIETY Review of Systems 2 Review of Systems: Yes all other systems are reviewed and are negative PMFSH Past Medical History Attestation statement: The following information was validated with the patient. 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 Chronic constipation Anxiety Hypothyroid Vitamin D deficiency Surgical History Hx of tubal ligation History of carpal tunnel release Hx of eye surgery Hx of dilation and curettage Hx of repair of right rotator cuff Hx of repair of left rotator cuff Hx of colonoscopy Hx of esophagogastroduodenoscopy Hx of cataract removal with insertion of prosthetic lens Hx of section Family History Family History Father Pulmonary edema without heart failure COPD (chronic obstructive pulmonary disease) Mother CVD (cardiovascular disease) Diabetes Sudden cardiac Sister Diabetes Schizo-affective schizophrenia Brother Throat cancer Epilepsy Social History Social History Household Members Other:: son Housing: Apartment Are you a primary critical care transport nurse to a significant other at home: No Alcohol intake: never Patient Tobacco Use Status: Never used Tobacco Second Hand Smoke Exposure: No Current occupational status: disabled Sexual orientation: Straight/Heterosexual Gender identity: Female Physical Exam ED Vital Signs: Vital Signs - 24 hr 01/15/24 09:01 Temperature 98.6 F Pulse Rate 80 Respiratory Rate 18 Blood Pressure 119/80 Pulse Oximetry 99 Oxygen Delivery Method Room Air BMI result Body Mass Index 27.2 vital signs stable General: Well appearing, in no acute distress. Skin: Warm, dry, intact. No rashes or lesions. Head: Normocephalic, atraumatic. EENT: Hearing is intact b/l. Conjunctiva clear. PERRLA. Moist mucous membranes.?posterior oropharynx wnl. Neck: Supple without LAD Cardiac: Chest wall symmetric. RRR. No JVD. Lungs: Normal respiratory effort without accessory muscle use. CTA bilaterally. No rales, rhonchi, or wheezes.? Abdomen: Soft, non-tender, non-distended. No rebound tenderness or guarding. Back: No midline spinous or paraspinal tenderness. No step off deformity. Ext: Upper and lower extremities atraumatic, without tenderness, deformity, swelling or erythema. Full ROM throughout. No calf tenderness. Neuro: AOx3. Normal speech. Strength 5/5 intact throughout. No saddle anesthesia. Sensation intact to light touch. normal finger to nose, heel to [place]. Ambulating with steady gait. Psych: Appropriate mood and affect. Responds appropriately to questions. Course Course Course Narrative: CBC without leukocytosis or left shift. No anemia. H&H stable. Chemistry without acute electrolyte abnormality requiring intervention. No EDUARDO. Liver function normal. Troponin undetectable. Negative for COVID, flu, RSV. Chest x-ray unremarkable. > patient has remained asymptomatic throughout her ED visit. I do not have concern for acute stroke and do not feel head imaging is warranted at this time as patient's exam is nonfocal. Advised patient to follow up with her PCP this week. will send a trial of meclizine if patient is to have another episode of dizziness. Patient has remained stable throughout ED visit today. Discussed worrisome signs and symptoms and when to return to the ED. All questions answered at this time. Patient is agreeable with disposition and stable for discharge. Medical Decision Making Medical Decision Making MDM Narrative: 63 year old Maltese speaking female with pmhx significant for HTN, chronic constipation, diverticulosis, Delma thyroiditis, GERD, h pylori presents tot he ED today for evaluation of dizziness on waking this morning. Vital signs stable. She is nontoxic appearing and in NAD. Exam is nonfocal. cerebellum is intact. I personally ambulated with patient around the ED and she is ambulating with steady gait, does not endorse feeling dizzy or light headed. posterior oropharynx wnl. lungs are clear. rrr. Differential diagnosis includes anemia, electrolyte abnormality, dehydration, pneumonia, viral syndrome, inhalation, ACS, arrhythmia Unlikely ICH, CVA/TIA, cerebellar stroke Plan for labs, ekg, cxr, re-evaluation Differential Diagnosis Differential Diagnoses: The differential diagnosis associated with the presentation includes as above. Admission/Observation not indicated. Lab Data MDM Lab Attestation statement: I reviewed the patient's lab results. as above. 01/15/24 11:52 01/15/24 11:52 Labs: Lab Results 01/15/24 Range/Units 11:52 WBC 7.5 (4.8-10.8) X10*3/uL RBC 4.76 (4.20-5.50) X10*6/uL Hgb 13.4 (12.0-16.0) g/dl Hct 41.4 (37.0-47.0) % MCV 87.0 (80.0-98.0) fL MCH 28.2 (27.0-33.0) pg MCHC 32.4 (31.0-35.0) g/dl RDW 13.0 (11.0-16.0) % Plt Count 303 (160-400) X10*3/uL MPV 9.7 (9.4-12.3) fL Immature Gran % (Auto) 0.3 (0.0-0.4) % Neut % (Auto) 49.8 (45-73) % Lymph % (Auto) 37.9 (20-40) % [place] % (Auto) 5.9 (2-11) % Eos % (Auto) 4.9 H (0-4) % Baso % (Auto) 1.2 (0-2) % Lymph # (Auto) 2.8 (1.2-4.9) X10*3/uL [place] # (Auto) 0.4 (0.1-1.2) X10*3/uL Eos # (Auto) 0.4 (0.0-0.4) X10*3/uL Baso # (Auto) 0.1 (0.0-0.2) X10*3/uL Abs Immat Gran (auto) 0.02 (0.00-0.03) X10*3/uL Absolute Neuts (auto) 3.7 (2.0-8.3) x10*3/uL Absolute Nucleated RBC 0.000 (0.0-0.012) X10*3/uL Nucleated RBC % (auto) 0.0 (0.0-0.2) /100WBC PT 11.5 (10.9-12.4) SEC INR 1.0 (0.9-1.1) Sodium 140 (135-145) mmol/L Potassium 4.3 (3.3-5.1) mmol/L Chloride 105 (96-108) mmol/L Carbon Dioxide 27 (22-29) mmol/L Anion Gap 12 (12-20) BUN 12 (9-16) mg/dL Creatinine 0.69 (0.5-1.4) mg/dL Estim Creat Clear Calc 90.8 Estimated GFR > 60 Random Glucose 96 (60-115) mg/dL Calcium 9.7 (8.4-10.2) mg/dL Magnesium 2.2 (1.6-2.6) mg/dL Total Bilirubin 0.4 (0.0-1.0) mg/dL AST 25 (5-31) U/L ALT 22 (0-31) U/L Alkaline Phosphatase 79 (39-117) U/L Troponin I High Sens < 2.7 (<3.5-17.0) ng/L Total Protein 7.8 (6.5-8.0) g/dL Albumin 4.1 (3.5-5.0) g/dL Influenza Type A (PCR) NEGATIVE (Negative) Influenza Type B (PCR) NEGATIVE (Negative) RSV RNA Qual (PCR) NEGATIVE (Negative) SARS-CoV-2 RNA (RT-PCR) NEGATIVE (Negative) Independent Interpretation I performed an independent interpretation of an: EKG and Plain X-Ray Interpretation: EKG showing normal sinus rhythm with sinus arrhythmia, rate of 64 beats per minute, QT 456, QTC 470, no acute ischemic changes or ST elevations Chest x-ray without focal consolidation or infiltrate Radiology Impression Discussion of test interpretation with radiology: I have reviewed the radiologist's reading. Radiologist Impression: EXAMINATION: XR CHEST CLINICAL INFORMATION: Cough after inhaling bleach. COMPARISON: None available. TECHNIQUE: Frontal view of the chest was obtained. FINDINGS: Thoracolumbar scoliosis. There is no gross pneumothorax. No significant pleural effusion. No significant focal consolidation. Stable cardiomediastinal silhouette. Heart size within normal limits. XR/XR chest 1V IMPRESSION: No evidence of pneumonia. This study was presented today January 15, 2024 for interpretation. Stat results provided at this time as requested by referring provider. Electronically signed by: Gem Belcher MD 01/15/2024 12:56 PM [facility] Independent Historian Clinical information obtained from an independent historian. History obtained from or confirmed by: Other (son) Social Determinants Patient?s care significantly limited by Social Determinants of Health including: Other Social Determinant of Health Critical Care Time Critical Care Time Critical Care Time: No Discharge Plan Discharge Clinical Impression: Dizziness Patient Disposition: Home, Self-Care Instructions: Dizziness (ED) Additional Instructions: You were evaluated in the ED today after feeling dizzy and coughing after using bleach yesterday. Your workup today is unremarkable. Please follow up with your primary care provider this week. Return with new or worsening symptoms. In the case of an emergency call 911. Prescriptions: No Action menthol-zinc oxide [Calmoseptine] 0.44-20.6 % ointment 1 appl topical BID PRN (Reason: skin irritation) Qty: 113 1RF levothyroxine 112 mcg capsule 112 mcg PO DAILY 90 Days Qty: 90 6RF gabapentin 100 mg capsule 100 mg PO TID Qty: 90 3RF calcium polycarbophil [Fiber-Lax] 625 mg tablet 1,250 mg PO DAILY Qty: 60 3RF loratadine [Allergy Relief (loratadine)] 10 mg tablet 10 mg PO DAILY Alcalak 168 mg calcium (420 mg) tablet,chewable 168 mg PO TID calcium carbonate-vitamin D3 600 mg-20 mcg (800 unit) tablet 1 tab PO DAILY atorvastatin 80 mg tablet 80 mg PO DAILY hydroxyzine HCl 25 mg tablet 25 mg PO DAILY PRN (Reason: anxiety) ibuprofen 400 mg tablet 400 mg PO TID PRN (Reason: pain) Qty: 90 3RF docusate sodium [Colace] 100 mg capsule 200 mg PO BEDTIME Qty: 60 5RF polyethylene glycol 3350 [Miralax] 17 gram/dose powder 17 g PO DAILY Qty: 510 6RF hydrocortisone [Proctosol HC] 2.5 % cream with perineal applicator 1 appl OR BEDTIME PRN (Reason: hemorrhoids) Qty: 30 3RF Referrals: Antonia Cardozo MD [Primary Care Provider] - Interventions: ED Discharge Assessment Last Done: 01/15/24 14:18 Discharge Date/Time: 01/15/24 14:18 Print Language: Maltese
--- NOTE | 2024-01-15 11:23 | ECG_ITS ---
Test Reason : DIZZINESS Blood Pressure : / mmHG Vent. Rate : 064 BPM Atrial Rate : 064 BPM P-R Int : 138 ms QRS Dur : 088 ms QT Int : 456 ms P-R-T Axes : -06 -15 011 degrees QTc Int : 470 ms Normal sinus rhythm with sinus arrhythmia Normal ECG When compared with ECG of 04-JUN-2020 17:34, No significant change was found Referred By: Vero Hung Electronically Signed By:LUCAS PÉREZ
[2024-01-15 11:56] LABS: MANUAL DIFF FLAG NO
[2024-01-15 12:00] LABS: Basophils Absolute Auto 0.1 X10*3/uL (0.0-0.2); Basophils Percent Auto 1.2 % (0-2); Eosinophils Absolute Auto 0.4 X10*3/uL (0.0-0.4); Eosinophils Percent Auto 4.9 % (0-4); Hematocrit 41.4 % (37.0-47.0); Hemoglobin 13.4 g/dl (12.0-16.0); Imm Gran Abs Auto 0.02 X10*3/uL (0.00-0.03); Imm Gran Pct Auto 0.3 % (0.0-0.4); Lymphocytes Absolute Auto 2.8 X10*3/uL (1.2-4.9); Lymphocytes Percent Auto 37.9 % (20-40); Mean Corpuscular HGB Conc 32.4 g/dl (31.0-35.0); Mean Corpuscular Hemoglobin 28.2 pg (27.0-33.0); Mean Platelet Volume 9.7 fL (9.4-12.3); Monocytes Absolute Auto 0.4 X10*3/uL (0.1-1.2); Monocytes Percent Auto 5.9 % (2-11); Neutrophils Absolute Auto 3.7 x10*3/uL (2.0-8.3); Neutrophils Percent Auto 49.8 % (45-73); Platelet Count 303 X10*3/uL (160-400); Red Blood Count 4.76 X10*6/uL (4.20-5.50); White Blood Count 7.5 X10*3/uL (4.8-10.8)
[2024-01-15 12:07] LABS: Prothrombin Time 11.5 SEC (10.9-12.4)
[2024-01-15 12:33] LABS: Alanine Aminotransferase 22 U/L (0-31); Albumin Level 4.1 g/dL (3.5-5.0); Alkaline Phosphatase 79 U/L (39-117); Anion Gap 12 (12-20); Aspartate Amino Transferase 25 U/L (5-31); Bilirubin Total 0.4 mg/dL (0.0-1.0); Blood Urea Nitrogen 12 mg/dL (9-16); Calcium 9.7 mg/dL (8.4-10.2); Carbon Dioxide 27 mmol/L (22-29); Chloride 105 mmol/L (96-108); Creatinine Clr Calc Pharmacy 90.8; Estimated Glomerular Filt Rate > 60; Glucose Random 96 mg/dL (60-115); Magnesium 2.2 mg/dL (1.6-2.6); Potassium 4.3 mmol/L (3.3-5.1); Sodium 140 mmol/L (135-145); Total Protein 7.8 g/dL (6.5-8.0)
[2024-01-15 12:44] LABS: Troponin-I High Sensitivity < 2.7 ng/L (<3.5-17.0)
[2024-01-15 13:09] LABS: Influenza A PCR NEGATIVE (Negative); Influenza B PCR NEGATIVE (Negative); Resp Syncy Virus RNA Qual PCR NEGATIVE (Negative); SARS COV2 PCR INHOUSE NEGATIVE (Negative)
[2024-01-15 14:18] VITALS: BP 119/80; PULSE 80; RESP 18; TEMP 37; O2SAT 99
== END 2024-01-15 14:18 | disposition home or self-care (01) ==
PROVIDERS: Physician Assistant Medical; Emergency Provider Emergency Medicine; PCP Family Medicine
DX: R42 Dizziness and giddiness (principal); R05.9 Cough, unspecified; I49.8 Other specified cardiac arrhythmias; E06.3 Autoimmune thyroiditis; I10 Essential (primary) hypertension; K59.00 Constipation, unspecified; Z79.899 Other long term (current) drug therapy; Z03.818 Encounter for observation for suspected exposure to other biological agents ruled out
CPT/HCPCS: 0241U; 71045; 80053; 83735; 84484; 85025; 85610; 93005; 99283

== ENCOUNTER → 2024-01-15 11:23 | Outpatient (BNV) | payer OTHER, SELFPAY | PROVIDERS: Emergency Provider Emergency Medicine; PCP Family Medicine; Visit Provider Internal Medicine | DX: R42 Dizziness and giddiness (principal) | CPT/HCPCS: 93010 ==

== ENCOUNTER 2024-02-06 11:08 | Outpatient (REF) | payer OTHER, SELFPAY ==
[2024-02-06 14:25] LABS: Alanine Aminotransferase 19 U/L (0-31); Albumin Level 4.1 g/dL (3.5-5.0); Alkaline Phosphatase 80 U/L (39-117); Anion Gap 9 (12-20); Aspartate Amino Transferase 21 U/L (5-31); Bilirubin Total 0.4 mg/dL (0.0-1.0); Blood Urea Nitrogen 13 mg/dL (9-16); Calcium 9.3 mg/dL (8.4-10.2); Carbon Dioxide 28 mmol/L (22-29); Chloride 108 mmol/L (96-108); Cholesterol 207 mg/dL (<200); Estimated Glomerular Filt Rate > 60; Glucose Random 90 mg/dL (60-115); HDL Cholesterol 53 mg/dL (>40); LDL Cholesterol Calculated 137 mg/dL (<100); Potassium 4.2 mmol/L (3.3-5.1); Sodium 141 mmol/L (135-145); Total Protein 8.1 g/dL (6.5-8.0); Triglycerides 88 mg/dL (<150)
[2024-02-06 14:41] LABS: TSH reflex Free T4 0.32 uIU/mL (0.32-4.0)
[2024-02-06 14:56] LABS: Reflex LDLD? No
== END 2024-02-06 11:09 | disposition home or self-care (01) ==
LOC: HO.HHCL 11:08
PROVIDERS: Visit Provider Family Medicine
DX: E03.9 Hypothyroidism, unspecified (principal); E78.5 Hyperlipidemia, unspecified
CPT/HCPCS: 36415; 80053; 80061; 84443

== ENCOUNTER 2024-02-15 11:50 | Outpatient (AMB) | payer OTHER, SELFPAY ==
--- NOTE | 2024-02-15 11:56 | MHC.OFFVIS ---
Vital Signs 02/15/24 12:01 Height 5 ft 8 in Weight 180 lb 5.41 oz BMI 27.4 BP 146/78 H Blood Pressure Location Lt brachial Position Sitting Pulse 93 Intake Visit Reasons: EGD results Intake Note: Trina presents in the office as a follow up for EGD results. CC: Patient reports that anything she eats or drinks she gets abdominal bloating. Helmet Hat Brim Cutter Required: Yes Accompanied by: Self / Same As Patient Allergies oxycodone [From Percocet] Allergy (Mild, Verified 02/15/24 12:04) ABDOMINAL PAIN amlodipine [From NORVASC] Adverse Reaction (Severe, Verified 02/15/24 12:04) STOMACH UPSET/ANXIETY HPI HPI EGD results: Details: 64 yr old f here for f/u Had been seeing [facility] for reflux and dysphagia Had EGD 09/24/23 Impression/Findings: gastritis duodenitis esophagitis hiatal hernia Path: chronic active inflammation GEJ active esophagitis chronic inactive duodenitis She also had balloon dilation TSH neg H pylori stool neg in past colonsocopy 2020- poor prep in some areas, moderate diverticulosis INTERIM: she has bloating she still has bouts of acid reflux she has constipation, taking fiber helps a little she tried miralax and coffee and sometimes helps swallowing is better EXAM: GENERAL: The patient is well developed and nontoxic. VITAL SIGNS:see workflow HEENT: Nonicteric sclerae, PERRLA, EOMI. Oropharynx clear. Moist mucous membranes. Conjunctivae appear well perfused. No thyroid mass. CHEST: Chest wall is nontender. HEART: Regular rate and rhythm without murmurs. LUNGS: Clear to auscultation bilaterally. ABDOMEN: Soft, positive bowel sounds, nontender, no organomegaly.no flank tenderness SKIN: No rash, no excessive bruising, petechiae, or purpura. NEUROLOGIC: Cranial nerves II-XII intact without motor/sensory deficit. 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 Chronic constipation Anxiety Hypothyroid Vitamin D deficiency Surgical History Hx of tubal ligation History of carpal tunnel release Hx of eye surgery Hx of dilation and curettage Hx of repair of right rotator cuff Hx of repair of left rotator cuff Hx of colonoscopy Hx of esophagogastroduodenoscopy Hx of cataract removal with insertion of prosthetic lens Hx of section Family History Father Pulmonary edema without heart failure COPD (chronic obstructive pulmonary disease) Mother CVD (cardiovascular disease) Diabetes Sudden cardiac Sister Diabetes Schizo-affective schizophrenia Brother Throat cancer Epilepsy Social History Household Members Other:: son Housing: Apartment Are you a primary attending ambulatory care to a significant other at home: No Alcohol intake: never Patient Tobacco Use Status: Never used Tobacco Second Hand Smoke Exposure: No Current occupational status: disabled Sexual orientation: Straight/Heterosexual Gender identity: Female Female Reproductive History Menstrual Age of Menarche: 12 Physical Exam Vital Signs: Last Vital Signs Pulse 93 02/15/24 12:01 BP 146/78 H 02/15/24 12:01 BMI result Body Mass Index 27.4 Assessment & Plan Assessment & Plan (1) Acid reflux: Code(s): K21.9 - Gastro-esophageal reflux disease without esophagitis Category: Medical Plan: see above Medications: New sodium,potassium,mag sulfates 17.5-3.13-1.6 gram (Suprep Bowel Prep Kit) DILUTE; drink 1/2 at 6-8 pm and half at 11 PM- 1AM 354 mL 0RF ondansetron to take for colon prep 4 mg PO Q8H PRN 5 tabs 0RF nausea and vomiting pantoprazole 40 mg PO DAILY 60 tabs 1RF linaclotide 145 mcg PO DAILY 30 caps 1RF Coding Level of Care Code Est Pt Level 4 (90917) Diagnoses Acid reflux K21.9
[2024-02-15 12:01] VITALS: BP 146/78; PULSE 93; BMI 27.4
== END 2024-02-15 12:30 | disposition home or self-care (01) ==
PROVIDERS: PCP Family Medicine; Visit Provider Internal Medicine Gastroenterology
DX: K21.9 Gastro-esophageal reflux disease without esophagitis (principal)
CPT/HCPCS: 99214

== ENCOUNTER → 2024-02-15 11:50 | Outpatient (BNVA) | payer OTHER, SELFPAY | PROVIDERS: PCP Family Medicine; Visit Provider Internal Medicine Gastroenterology | DX: K21.9 Gastro-esophageal reflux disease without esophagitis (principal) | CPT/HCPCS: 99212 ==

== ENCOUNTER 2024-04-18 09:43 | Outpatient (RCR) | payer OTHER, SELFPAY | END 2024-05-02 10:22 | disposition home or self-care (01) | LOC: HO.PT 09:43 | PROVIDERS: PCP Family Medicine; Visit Provider Student in an Organized Health Care Education/Training Program | DX: M26.622 Arthralgia of left temporomandibular joint (principal) | CPT/HCPCS: 97110; 97140; 97161 ==

== ENCOUNTER 2024-05-28 13:11 | Emergency (ER) | payer OTHER, SELFPAY ==
--- NOTE | ~2024-05-28 | XR_ITS ---
EXAMINATION: XR KNEE, LEFT CLINICAL INFORMATION: trauma COMPARISON: 04/25/2018. TECHNIQUE: Four views of the left knee. FINDINGS: No fracture, dislocation, or suspicious bone lesion. Normal bone mineralization. Normal alignment. 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 Minimal changes in the medial compartment. No significant joint effusion. Soft tissues appear normal. XR/XR knee LT 4V IMPRESSION: 1. No acute bony abnormalities. 2. Mild to moderate degenerative arthrosis lateral and patellofemoral compartments. Electronically signed by: Lowell Arriaza MD 05/28/2024 02:12 PM EDT
--- NOTE | ~2024-05-28 | XR_ITS ---
EXAMINATION: XR HAND, RIGHT CLINICAL INFORMATION: trauma COMPARISON: None available. TECHNIQUE: PA, lateral, and oblique views of the right hand. FINDINGS: Decreased mineralization of the cortex in the mid diaphysis of the fifth metacarpal seen on the lateral projection. No acute cortical disruption or malalignment. Osteopenia versus osteoporosis. Phalanges are intact with normal alignment. XR/XR hand RT min 3V IMPRESSION: No acute fracture or dislocation. Abnormal cortex/periosteum mid diaphysis of the fifth metacarpal. Electronically signed by: Darion Friend MD 05/28/2024 02:11 PM EDT
[2024-05-28 13:30] VITALS: BP 167/87; PULSE 77; RESP 18; TEMP 36.9; O2SAT 98; BMI 35.7
--- NOTE | 2024-05-28 13:34 | ED_ITS ---
HPI - General Adult General Chief complaint: Fall Stated complaint: fell and hurt her palm of her hand Time Seen by Provider: 05/28/24 14:23 Source: patient, RN notes reviewed, old records reviewed and neck cutter Mode of arrival: ambulatory Limitations: language barrier History of Present Illness ED Provider: Harry HPI narrative: 64-year-old female presents for evaluation of right hand pain and left knee pain. Patient reports that she tripped going down the stairs and fell from 1 step. She used her right hand to brace the fall and injured her right hand. She was able to walk but complains of left knee pain pain Denies hitting her head or losing consciousness. She is not anticoagulated. Her pain is 5/10 Related Data Home Medications ?Medication ?Instructions ?Recorded ?Confirmed loratadine 10 mg tablet (Allergy 10 mg PO DAILY 09/24/20 05/02/24 Relief (loratadine)) calcium 600 mg (as 1 tab PO DAILY 07/13/21 12/20/22 carbonate)-vitamin D3 20 mcg (800 unit) tablet atorvastatin 80 mg tablet 80 mg PO DAILY 03/31/22 05/02/24 hydroxyzine HCl 25 mg tablet 25 mg PO DAILY PRN anxiety 03/31/22 05/02/24 cyclobenzaprine 10 mg tablet 10 mg PO BEDTIME 02/15/24 05/02/24 levothyroxine 112 mcg tablet 112 mcg PO DAILY 02/15/24 05/02/24 Previous Rx's ?Medication ?Instructions ?Recorded menthol 0.44 %-zinc oxide 20.6 % 1 appl topical BID PRN skin 08/01/21 topical ointment (Calmoseptine) irritation #113 grams gabapentin 100 mg capsule 100 mg PO TID #90 caps 11/14/21 ibuprofen 400 mg tablet 400 mg PO TID PRN pain #90 tabs 03/31/22 hydrocortisone 2.5 % topical cream 1 appl TN BEDTIME PRN hemorrhoids 12/20/22 with perineal applicator #30 grams (Proctosol HC) polyethylene glycol 3350 17 17 g PO DAILY #510 grams 12/20/22 gram/dose oral powder (Miralax) calcium polycarbophil 625 mg 1,250 mg (2 x 625 mg) PO DAILY #60 03/13/23 tablet (Fiber-Lax) tabs ondansetron 4 mg disintegrating 4 mg PO Q8H PRN nausea and 02/15/24 tablet vomiting #5 tabs pantoprazole 40 mg tablet,delayed 40 mg PO DAILY #60 tabs 02/15/24 release sodium,potassium,mag sulfates 17.5 See Rx Instructions PO .COMPLEX 02/15/24 gram-3.13 gram-1.6 gram oral soln #354 mL (Suprep Bowel Prep Kit) docusate sodium 100 mg capsule 100 mg PO BID PRN constipation #60 04/21/24 ea Linzess 145 mcg capsule 145 mcg PO DAILY #30 caps 05/14/24 (linaclotide) Allergies Allergy/AdvReac Type Severity Reaction Status Date / Time oxycodone [From Percocet] Allergy Mild ABDOMINAL Verified 05/28/24 13:32 PAIN amlodipine [From NORVASC] AdvReac Severe STOMACH Verified 05/28/24 13:32 UPSET/ANXIETY Review of Systems Constitutional: Constitutional: Denies body ache(s), Denies chills and Denies headache(s) Eyes: Eyes: Denies blurry vision ENT: Denies vertigo, Denies dizziness and Denies headache(s) Cardiovascular: Cardiovascular: Denies chest pain and Denies syncope Musculoskeletal: Musculoskeletal: Reports arthralgias, Reports joint swelling and Reports limited range of motion Integumentary/Breasts: Skin/Breast: Denies rash Neurologic: Denies vertigo, Denies dizziness, Denies syncope and Denies headache(s) [facility] Past Medical History Medical History (Updated 05/28/24 @ 14:27 by Héctor Mcdonald) Renal cyst Obesity due to excess calories Osteopenia 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 Chronic constipation Anxiety Hypothyroid Vitamin D deficiency Surgical History (Updated 05/02/24 @ 12:02 by Cheryle Butcher RN) Hx of tubal ligation History of carpal tunnel release Hx of eye surgery Hx of dilation and curettage Hx of repair of right rotator cuff Hx of repair of left rotator cuff Hx of colonoscopy Hx of esophagogastroduodenoscopy Hx of cataract removal with insertion of prosthetic lens Hx of section Family History Family History Father Pulmonary edema without heart failure COPD (chronic obstructive pulmonary disease) Mother CVD (cardiovascular disease) Diabetes Sudden cardiac Sister Diabetes Schizo-affective schizophrenia Brother Throat cancer Epilepsy Social History Social History Household Members Other:: son Housing: Apartment Are you a primary skin care consultant to a significant other at home: No Alcohol intake: never Patient Tobacco Use Status: Never used Tobacco Second Hand Smoke Exposure: No Advance Directives: No Advance Directives Information Provided: Yes Current occupational status: disabled Sexual orientation: Straight/Heterosexual Gender identity: Female Physical Exam ED Vital Signs: Vital Signs - 24 hr 05/28/24 13:30 05/28/24 14:35 Temperature 98.5 F 98.5 F Pulse Rate 77 77 Respiratory Rate 18 18 Blood Pressure 167/87 H 167/87 H Pulse Oximetry 98 98 Oxygen Delivery Method Room Air Room Air BMI result Body Mass Index 35.7 Const General: healthy appearing, comfortable, no acute distress, alert and awake Nutritional Appearance: well nourished Orientation/consciousness: patient oriented x3 HENMT Head: Yes normocephalic and Yes atraumatic Eyes Eyelids: Yes eyelids normal Conjunctivae: conjunctivae normal Sclerae: sclerae normal Corneas: corneas normal Pupils: Equal, round and reactive pupils present EOM: EOMs intact bilaterally Neck Neck: Yes full ROM Resp Effort & Inspection: normal respiratory effort, able to speak in complete sentences and not labored Skin General skin exam: elasticity normal Neuro General: patient oriented x3 Cranial nerves: Yes Equal, round and reactive pupils present and Yes Bilaterally intact EOM present Cognition (Neuro): normal cognition Extrem Other: Mild ecchymosis to the palmar surface of the right hand over the mid shaft of the 3rd metacarpal. No significant deformity palpable. Patient has good range of motion of all fingers. There was no right wrist tenderness. No scaphoid tenderness. Patient has full range of motion with flexion-extension of the left knee. There is no significant edema or tenderness on exam. No calf tenderness Course Course Course Narrative: RME, this is a rapid medical exam performed by Vimal Mcdonald please refer to primary provider for complete H&P- 64-year-old female presents for evaluation of right hand and left knee pain after a fall. The patient reports a nonsyncopal fall ago. She was ecchymosis to the palmar surface of the right hand. No right wrist tenderness. No tenderness over the scaphoid. Plan for x-ray of the right hand and left knee. Medical Decision Making Medical Decision Making [facility] Narrative: 64-year-old female presents for evaluation of a nonsyncopal fall with right hand and left knee pain. X-ray show arthritis and osteoporosis but no evidence of fracture. I discussed these findings with the patient. She will be discharged with symptomatic care Differential Diagnosis Differential Diagnoses: The differential diagnosis associated with the presentation includes Hand contusion Hand fracture Hand sprain Wrist sprain Wrist fracture Radiology Impression Discussion of test interpretation with radiology: I have reviewed the radiologist's reading. Radiologist Impression: FINDINGS: Decreased mineralization of the cortex in the mid diaphysis of the fifth metacarpal seen on the lateral projection. No acute cortical disruption or malalignment. Osteopenia versus osteoporosis. Phalanges are intact with normal alignment. XR/XR hand RT min 3V IMPRESSION: No acute fracture or dislocation. Abnormal cortex/periosteum mid diaphysis of the fifth metacarpal. Electronically signed by: Darion Friend MD 05/28/2024 02:11 PM EDT RP XR/XR knee LT 4V IMPRESSION: 1. No acute bony abnormalities. 2. Mild to moderate degenerative arthrosis lateral and patellofemoral compartments. Electronically signed by: Lowell Arriaza MD 05/28/2024 02:12 PM EDT RP Discharge Plan Discharge Clinical Impression: Contusion of hand, right Patient Disposition: Home, Self-Care Instructions: Contusion in Adults (ED) Additional Instructions: Your x-ray does not show any broken bones in the right hand or left knee. You do appear to have mild osteoporosis Use ibuprofen/Tylenol for pain. Use ice to help with the swelling Prescriptions: No Action menthol-zinc oxide [Calmoseptine] 0.44-20.6 % ointment 1 appl topical BID PRN (Reason: skin irritation) Qty: 113 1RF gabapentin 100 mg capsule 100 mg PO TID Qty: 90 3RF calcium polycarbophil [Fiber-Lax] 625 mg tablet 1,250 mg PO DAILY Qty: 60 3RF docusate sodium 100 mg capsule 100 mg PO BID PRN (Reason: constipation) Qty: 60 4RF Linzess 145 mcg capsule 145 mcg PO DAILY Qty: 30 1RF loratadine [Allergy Relief (loratadine)] 10 mg tablet 10 mg PO DAILY calcium carbonate-vitamin D3 600 mg-20 mcg (800 unit) tablet 1 tab PO DAILY atorvastatin 80 mg tablet 80 mg PO DAILY hydroxyzine HCl 25 mg tablet 25 mg PO DAILY PRN (Reason: anxiety) ibuprofen 400 mg tablet 400 mg PO TID PRN (Reason: pain) Qty: 90 3RF polyethylene glycol 3350 [Miralax] 17 gram/dose powder 17 g PO DAILY Qty: 510 6RF hydrocortisone [Proctosol HC] 2.5 % cream with perineal applicator 1 appl TN BEDTIME PRN (Reason: hemorrhoids) Qty: 30 3RF cyclobenzaprine 10 mg tablet 10 mg PO BEDTIME levothyroxine 112 mcg tablet 112 mcg PO DAILY pantoprazole 40 mg tablet,delayed release (DR/EC) 40 mg PO DAILY Qty: 60 1RF ondansetron 4 mg tablet,disintegrating 4 mg PO Q8H PRN (Reason: nausea and vomiting) Qty: 5 0RF Rx Instructions: to take for colon prep sodium,potassium,mag sulfates [Suprep Bowel Prep Kit] 17.5-3.13-1.6 gram recon soln See Rx Instructions PO .COMPLEX Qty: 354 0RF Rx Instructions: DILUTE; drink 1/2 at 6-8 pm and half at 11 PM- 1AM Interventions: ED Discharge Assessment Last Done: 05/28/24 14:35 Discharge Date/Time: 05/28/24 14:35 Print Language: Romanian
[2024-05-28 14:35] VITALS: BP 167/87; PULSE 77; RESP 18; TEMP 36.9; O2SAT 98
--- OUTSIDE RECORDS SUMMARY | 2024-05-28 16:45 | XMS_ITS | Encounter Summary ---
Author Organization [employer] Address [address] [facility] [address] [place] [address] Care Team Providers Care Ctc Operator Name Role Phone Antonia Cardozo MD Primary Care Provider [phone] Reason for Visit * Reason Comments Med Refill Encounter Details Date Type Department Care Team ([facility] st Contact Info) Description 12/30/2023 Refill [facility] [address] [place] [address] Day Alva MD [address] [place] [address] Social History Tobacco Use Types Packs/Day Years Used Date Smoking Tobacco: Never Passive Smoke Exposure: Never Smokeless Tobacco: Never Alcohol Use Standard Drinks/Week Comments Never 0 (1 standard drink = 0.6 oz pur e alcohol) Alcohol Answer Date Recorded Frequency of Alcohol Consumption Not on file 12/24/2023 Average Number of Drinks Not on file 024 Frequency of Binge Drinking Not on file 05/2023 Score 0 12/24/2023 Depression Answer Date Recorded Patient Health Questionnaire-9 Score 0 09/21/2023 Patient Health Questionnaire-9 Score 0 09/21/2023 Last PHQ-9: Questionnaire Data Not on file 0 09/21/2023 Housing Stability Answer Date Recorded What is your housing situation today? I have uziel saez 09/21/[address] you li ve. Do you have problems with any of the following? None of the above 09/21/2023 Food Insecurity Answer Date Recorded Within the past 12 months, y ou worried that your food would run out before you got money to buy more: Never True 09/21/2023 Within the past 12 months,th e food you bought just didn't last and you didn't have enough money to get more: Never True 03/2023 Transportation Answer Date Recorded In the past 12 months, has l ack of transportation kept you from medical appts, meetings, work or from getting things needed for daily living? No 09/21/2023 Utilities Answer Date Recorded In the past 12 months, has t he electric, gas, oil or water company threatened to shut off services in your home? No 09/21/2023 Depression Answer Date Recorded Patient Health Questionnaire-2 Score 0 09/21/2023 Internet Access Answer Date Recorded Internet Access Q1 No 10/22/2023 Internet Access Q2 I do not want or need it 03/2023 Comments Unknown Sex and Gender Information Value Date Recorded Sex Assigned at Female 12/19/2021 10:15 AM EDT Legal Sex Female 10:15 AM EDT Gender Identity Female 12/19/2021 10:15 AM EDT Sexual Orientation Don't know 12/19/2021 10 :15 AM EDT documented as of this encounter Plan of Treatment Not on file documented as of this encounter Visit Diagnoses Not on filedocumented in this encounter Additional Health Concerns Assessment Noted Time PHQ-9 Depression Total Score: 0 09/21/19 24 9:49 AM EDT documented as of this encounter Care Teams Ctc Operator Relationship Specialty Start Date End Date Antonia Cardozo MD [address] [place] [address] PCP - General Family Medicine 06/08/22 documented as of this encounter
--- OUTSIDE RECORDS SUMMARY | 2024-05-28 16:45 | XMS_ITS | Clinical Summary ---
Author Organization [facility] Address [address] [place] [address] Care Team Providers Care Winder Operator Name Role Phone Antonia Cardozo MD Primary Care Provider [phone] Allergies Active Allergy Reactions Criticality Noted Date Comments Amlodipine High 09/13/2023 Other Reaction(s): STOMACH UPSET/ANXIETY Oxycodone 05/21/2012 Oxycodone-Acetaminophen 02/22/2023 Medications atorvastatin (Lipitor) 80 MG tablet Take 80 mg by mouth in the morning. 023 Active hydrOXYzine HCl (Atarax) 25 MG tablet Take 25 mg by mouth if needed each day. 022 Active Calmoseptine 0.44-20.6 % ointment APPLY TO THE AFFECTED AREA(S) TWICE DAILY NEEDED 022 Active Fiber-Lax 625 MG tablet Take 2 tablets by mouth in the morning. 023 Active docusate sodium (Colace) 100 MG capsule TAKE 2 CAPSULES BY MOUTH EVERY DAY AT BEDTIME Active hydrocortisone (Anusol-HC) 2.5 % rectal cream APPLY 1 APPLICATION RECTALLY DAILY AT BEDTIME NEEDED FOR HEMORRHOIDS 023 Active pantoprazole (ProtoNix) 20 MG EC tablet Take 20 mg by mouth in the morning. 023 Active HM ClearLax 17 GM/SCOOP powder Mix 17g (1 capful) in 8 ounces of water and take by mouth every day 023 Active Diclofenac Sodium 1 % gel APPLY 2 GRAMS TOPICALLY ONE OR TWO TIMES DAILY NEEDED FOR PAIN 100 g 2 024 Active Calcium+D3 600-20 MG-MCG tablet TAKE 1 TABLET BY MOUTH EVERY MORNING 90 tablet 1 024 Active cyclobenzaprine (Flexeril) 5 MG tabletIndications:A rthralgia of left temporomandibular joint Take 1 tablet (5 mg) by mouth if needed at bedtime for muscle spasms for up to 14 days. 14 tablet 024 Active levothyroxine (Synthroid, Levoxyl) 112 MCG tablet TAKE 1 TABLET BY MOUTH EVERY MORNING 90 tablet 1 024 Active gabapentin (Neurontin) 100 MG capsule TAKE 1 CAPSULE BY MOUTH THREE TIMES DAILY 90 capsule 025 Active D3 Super Strength 50 MCG (2000 UT) capsule TAKE 1 CAPSULE BY MOUTH EVERY MORNING 90 capsule 3 025 Active Linzess 145 MCG capsule Take 1 capsule by mouth Once per day. Active ondansetron ODT (Zofran-ODT) 4 MG disintegrating tablet DISSOLVE 1 TABLET BY MOUTH EVERY 8 HOURS NEEDED FOR NAUSEA AND VOMITING, TAKE FOR COLONOSCOPY PREPARATION Active acetaminophen (Tylenol Extra Strength) 500 MG tablet Take 1 or 2 tablets by mouth every 8 hours as needed for pain or fever. Maximum Daily dose 6 tabs. 90 tablet 1 Active triamcinolone (Kenalog) 0.1 % ointmentIndications :Atopic dermatitis of both hands Apply topically 2 times daily. 30 g 1 025 Active clobetasol (Temovate) 0.05 % ointmentIndications :Lichen sclerosus,Post-infl ammatory hyperpigmentation Apply topically 2 times daily. 60 g 025 Active clobetasol (Temovate) 0.05 % ointmentIndications :Lichen sclerosus,Post-infl ammatory hyperpigmentation Apply topically 2 times daily. 60 g 025 2024 Discontinued(R ariana (will not trigger notification to Pharmacy)) Active Problems Problem Noted Date Diagnosed Date Lichen sclerosus 04/02/2024 Assessment & Plan (04/13/2024 4:51 PM EST): - continue judicious use of topical steroid Assessment & Plan (04/02/2024 12:02 PM EST): Hypopigmentation, thin and dry skin of vulva consistent with lichen sclerosus Sent clobetasol ointment to use BID x 2 weeks F/u in 1 month for skin check Post-inflammatory hyperpigmentation 04/02/2024 Assessment & Plan (04/02/2024 12:04 PM EST): No current rash present Vulvar discoloration is diffuse and equal throughout vulvar area and presumably related to post inflammation from her previous rash which was located in the same area, no lesions present. F/u in 1 month for skin check, at this time consideration for derm referral if anything looks concerning. Esophageal dysmotility 12/24/2023 Assessment & Plan (12/30/2023 6:10 AM EST): following with [facility]. EGD on 09/24/23, showing gastritis, duodenitis, esophagitis, and hiatal hernia, and Schatzki's ring. Pathology report - active esophagitis, negative H. Pylori. Barium Swallow on 11/28/23 showing esophageal dysmotility Continue treatment per GI Elevated BP without diagnosis of hypertension Assessment & Plan (04/13/2024 4:50 PM EST): -Goal BP < 150/90 per JNC-8 and < 130/80 per ACC/AHA guideline (Treatment threshold >= ) -elevated again today, most of BP in the clinic has been elevated, but patient reports normal BP at home - ?white-coat hypertension - Continue working on lifestyle modifications - Continue self-monitoring BP - Previously on medication which was discontinued as it turned out to be normal at home - Consider 24-hour ABPM Chronic constipation 12/19/2023 Assessment & Plan (04/13/2024 4:53 PM EST): - following with [facility], last seen in Jan 2024 - continue Linaclotide 145 mcg daily Dental anomaly 12/19/2023 Dental caries 12/19/2023 Diverticulosis of colon 12/19/2023 Dysphagia 12/19/2023 Assessment & Plan (12/30/2023 6:11 AM EST): Following with [facility] GERD and esophageal dysmotility Continue PPI 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 Assessment & Plan (04/13/2024 4:51 PM EST): - due to Hashimotos' thyroiditis - previously seen by [facility] - most recent TSH 0.32 on 02/06/24 - continue levothyroxine 112 mcg daily Obesity due to excess calories 12/19/2023 Primary osteoarthritis of left knee 12/19/2023 S/P colonoscopy 12/19/2023 Vitamin D deficiency 12/19/2023 Assessment & Plan (04/13/2024 4:56 PM EST): - continue supplement TMJ pain dysfunction syndrome 10/30/2023 Assessment & Plan (12/30/2023 6:13 AM EST): - reviewed anticipated course of this illness - reviewed treatment options - continue following with dentist Assessment & Plan (10/31/2023 8:57 AM EDT): Reports left ear pain /mandibule w locking Symptoms suggestive of left TMJ dysfunction -referred to PT today for TMJ dysf -XR for TMJ ordered today -tylenol prn ,NSAIDS PRN for mod pain-has at home 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 Pylori, s/p eradication treatment with triple therapy - most recent H. Pylori stool antigen was negative. - EGD on 09/24/23 showed gastritis, duodenitis, esophagitis, hiatal hernia, and Schatzki's ring - avoid irritants - follow up as scheduled Assessment & Plan (12/30/2023 6:09 AM EST): - following with [facility], last seen in Dec 2022 - continue pantoprazole as prescribed - EGD in June 2018, erosive gastritis, positive H. Pylori, s/p eradication treatment with triple therapy - most recent H. Pylori stool antigen was negative. - EGD on 09/24/23 showed gastritis, duodenitis, esophagitis, hiatal hernia, and Schatzki's ring - avoid irritants - follow up as scheduled Assessment & Plan (02/23/2023 4:10 PM EST): - following with [facility], last seen in Dec 2022 - continue pantoprazole as prescribed - last EGD in June 2018, erosive gastritis, positive H. Pylori, s/p eradication treatment with triple therapy - most recent H. Pylori stool antigen was negative. - avoid irritants - follow up as scheduled History of Helicobacter pylori infection 024 Bilateral renal cysts 10/30/2022 Assessment & Plan (12/30/2023 6:12 AM EST): - evaluated by [facility] provider, last seen in Oct 2023 - US on 08/01/22. Right 1.1 x 0.8 x 1.0 cm. Left 1.2 x 1.3 x 1.1 cm. Stable size. - US on 10/15/23 showed stable, likely benign mildly complex cysts. No further imaging follow up is recommended. Assessment & Plan (11/13/2022 9:03 AM EDT): - following with urologist - last imaging, US on 08/01/22. Right 1.1 x 0.8 x 1.0 cm. Left 1.2 x 1.3 x 1.1 cm. Stable size. - Follow up in 1 year Chronic pain of both shoulders 07/07/2022 Assessment & Plan (04/13/2024 4:57 PM EST): - s/p rotator cuff repair, right in 2007, and left in 2010 - following with [facility] - MRI of R shoulder on 10/08/22 showed full-thickness rotator cuff tear - continue APAP - continue celecoxib, discussed about its judicious eran - activity modification Assessment & Plan (02/23/2023 4:11 PM EST): - s/p rotator cuff repair, right in 2007, and left in 2010 - following with [facility] - MRI of R shoulder on 10/08/22 showed full-thickness rotator cuff tear - continue APAP - continue celecoxib, discussed about its judicious eran - activity modification Assessment & Plan (11/13/2022 8:59 AM EDT): - s/p rotator cuff repair, right in 2007, and left in 2010 - following with [facility] - MRI of R shoulder on 10/08/22 showed full-thickness rotator cuff tear - continue APAP - restart celecoxib, discussed about its judicious eran - activity modification Assessment & Plan (07/07/2022 11:48 AM EDT): - s/p rotator cuff repair, right in 2007, and left in 2010 - continue APAP and judicious use of NSAID (no longer on TARIQ-2) - activity modification - evaluate with X-ray - consider steroid injection and/or PT History of anemia 07/05/2022 Assessment & Plan (07/05/2022 5:53 PM EDT): - check CBC Osteopenia of neck of femur 07/05/2022 Assessment & Plan (04/13/2024 4:57 PM EST): - 05/06/21 DEXA T-score -2.3 in femoral neck - 07/19/23 DEXA T-score -1.4 femoral neck, improved - repeat DEXA in 2-3 years. - continue adequate calcium and vitamin D intake and weight-bearing exercise Assessment & Plan (12/30/2023 6:15 AM EST): - 05/06/21 DEXA T-score -2.3 in femoral neck - 07/19/23 DEXA T-score -1.4 femoral neck, improved - repeat DEXA in 2-3 years. - continue adequate calcium and vitamin D intake and weight-bearing exercise Assessment & Plan (06/24/2023 6:05 AM EDT): - 05/06/21 DEXA T-score -2.3 in femoral neck - continue weight bearing exercise - repeat DEXA. If T-score worsens or is the same, then will start bisphosphonate Assessment & Plan (02/23/2023 4:11 PM EST): - 05/06/21 DEXA T-score -2.3 in femoral neck - continue weight bearing exercise - repeat DEXA. If T-score worsens or is the same, then will start bisphosphonate Assessment & Plan (11/13/2022 8:59 AM EDT): - 05/06/21 DEXA T-score -2.3 in femoral neck - continue weight bearing exercise - repeat DEXA. If T-score worsens or is the same, then will start bisphosphonate Assessment & Plan (07/05/2022 5:50 PM EDT): - 05/06/21 DEXA T-score -2.3 in femoral neck - continue weight bearing exercise - repeat DEXA. If T-score worsens or is the same, then will start bisphosphonate History of hypertension 07/02/2022 Assessment & Plan (04/13/2024 4:48 PM EST): -Goal BP < 150/90 per JNC-8 and < 130/80 per ACC/AHA guideline (Treatment threshold >= ) -elevated again today, most of BP in the clinic has been elevated, but patient reports normal BP at home - Continue working on lifestyle modifications - Continue self-monitoring BP - Previously on medication which was discontinued as it turned out to be normal at home Assessment & Plan (12/30/2023 6:17 AM EST): -Goal BP < 150/90 per JNC-8 and < 130/80 per ACC/AHA guideline (Treatment threshold >= ) -elevated again today, most of BP in the clinic has been elevated, but patient reports normal BP at home - Continue working on lifestyle modifications - Continue self-monitoring BP - Previously on medication which was discontinued as it turned out to be normal at home - Schedule BP check with our nurse. Bring BP monitor to make sure it is reading correct BP. - If BP is still elevated at the clinic or at home (home BP > 130 / 80), will start losartan 12.5 mg daily. Assessment & Plan (10/31/2023 8:57 AM EDT): Elevated BP here states home BP used to be normal -advised to bring home BP readings -has PCP apt on 12/12/2023 ,if ongoing elevated will need to start BP meds -low salt diet advised Assessment & Plan (06/21/2023 12:09 AM EDT): -Goal BP < 150/90 per JNC-8 and < 130/80 per ACC/AHA guideline (Treatment threshold >= ) -borderline today - Continue working on lifestyle modifications - Recommended self-monitoring BP -Follow up in 5 mo, sooner if any problem arises Assessment & Plan (02/23/2023 4:13 PM EST): -Goal BP < 150/90 per JNC-8 and < 130/80 per ACC/AHA guideline (Treatment threshold >= ) -borderline today - Continue working on lifestyle modifications - Recommended self-monitoring BP -Follow up in 3 mo, sooner if any problem arises Assessment & Plan (11/13/2022 9:02 AM EDT): -Goal BP < 150/90 per JNC-8 and < 130/80 per ACC/AHA guideline (Treatment threshold >= ) - within acceptable range - Continue working on lifestyle modifications - Recommended self-monitoring BP -Follow up in 3-6 mo, sooner if any problem arises Assessment & Plan (07/07/2022 11:54 AM EDT): -Goal BP < 150/90 per JNC-8 and < 130/80 per ACC/AHA guideline (Treatment threshold >= ) - borderline BP - Continue working on lifestyle modifications - Recommended self-monitoring BP -Follow up in 3-6 mo, sooner if any problem arises History of angina 07/02/2022 Assessment & Plan (07/05/2022 5:52 PM EDT): - following with [facility], last seen in June 2022 - normal nuclear stress test in May 2022 - continue risk factor managemt Dyslipidemia 07/02/2022 Assessment & Plan (04/13/2024 4:57 PM EST): - last lipid profile: 06/20/23 TC 218; TG 102; HDL 53; LDL 145 - current medications atorvastatin 80 mg at bedtime (questionable adherence) - continue working on lifestyle modifications Assessment & Plan (12/30/2023 6:18 AM EST): - last lipid profile: 06/20/23 TC 218; TG 102; HDL 53; LDL 145 - current medications atorvastatin 80 mg at bedtime (questionable adherence) - continue working on lifestyle modifications Assessment & Plan (06/21/2023 12:08 AM EDT): - last lipid profile: 06/20/23 TC 218; TG 102; HDL 53; LDL 145 - current medications atorvastatin 80 mg at bedtime - continue working on lifestyle modifications Assessment & Plan (02/23/2023 4:13 PM EST): - last lipid profile: 07/04/22 TC 166; TG 108; HDL 57; LDL 89 - current medications atorvastatin 80 mg at bedtime - continue working on lifestyle modifications Assessment & Plan (11/13/2022 9:02 AM EDT): - last lipid profile: 07/04/22 TC 166; TG 108; HDL 57; LDL 89 - current medications atorvastatin 80 mg at bedtime - continue working on lifestyle modifications Assessment & Plan (07/07/2022 11:55 AM EDT): - current medications atorvastatin 80 mg at bedtime - continue working on lifestyle modifications Depressive disorder 03/21/2012 Assessment & Plan (04/13/2024 4:57 PM EST): - Followed by [facility] providers, psych, Dr Ortiz - On Gabapentin and hydroxyzine - No recent changes in medications - No SI/HI - Continue current treatment plan Assessment & Plan (07/07/2022 11:58 AM EDT): - Followed by [facility] providers, psych, Dr Ortiz - On Gabapentin and hydroxyzine - No recent changes in medications - No SI/HI - Continue current treatment plan Hemorrhoids 03/21/2012 Assessment & Plan (07/07/2022 11:49 AM EDT): - avoid prolonged sitting - prevent constipation - fiber-rich diet - sitz bath - topical agent prn Hypothyroidism 03/21/2012 Assessment & Plan (04/13/2024 4:51 PM EST): - due to Hashimotos' thyroiditis - previously seen by [facility] - most recent TSH 0.32 on 02/06/24 - continue levothyroxine 112 mcg daily Assessment & Plan (12/28/2023 3:45 PM EST): - due to Hashimotos' thyroiditis - previously seen by [facility] - most recent TSH 0.36 on 06/20/23 - continue levothyroxine 112 mcg daily Assessment & Plan (06/21/2023 12:07 AM EDT): - due to Hashimotos' thyroiditis - previously seen by [facility] - most recent TSH 0.36 on 06/20/23 - continue levothyroxine 112 mcg daily Assessment & Plan (02/23/2023 4:12 PM EST): - due to Hashimotos' thyroiditis - previously seen by [facility] - most recent TSH 1.28 on 07/04/22 - continue levothyroxine 112 mcg daily Assessment & Plan (11/13/2022 9:00 AM EDT): - due to Hashimotos' thyroiditis - previously seen by [facility] - most recent TSH 1.28 on 07/04/22 - continue levothyroxine 112 mcg daily Assessment & Plan (07/07/2022 11:53 AM EDT): - due to Hashimotos' thyroiditis - previously seen by [facility] - continue levothyroxine 112 mcg daily Resolved Problems Problem Noted Date Diagnosed Date Resolved Date Language barrier 12/19/2023 12/24/2023 Nausea 12/19/2023 12/30/2023 Poor historian 12/19/2023 12/24/2023 Encounter for screening for malignant neoplasm of colon 12/19/2023 12/24/2023 Hordeolum externum of left lower eyelid 10/30/2023 12/24/2023 Cough 07/17/2017 07/05/2022 Breast pain 08/27/2012 02/22/2023 02/23/2023 Mass of breast 05/21/2012 02/22/2023 12/24/2023 Chronic anemia 03/21/2012 07/05/2022 Encounters Date Type Department Care Team Description 04/30/2024 3:30 PM EDT Office Visit [address] [id number] Reno Desir CNP Atopic dermatitis of both hands (Primary Dx); Lichen sclerosus; Post-inflammatory hyperpigmentation; Influenza A 04/30/2024 Travel 04/29/[address] [address] Antonia Cardozo MD Nurse Triage 04/10/[address] [address] Antonia Cardozo MD Chart Prep 04/09/2024 9:30 AM EST Office Visit [address] [address] Antonia Cardozo MD Elevated BP without diagnosis of hypertension (Primary Dx); 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; Acquired hypothyroidism; Neck pain; Dietary counseling; Exercise counseling; Class 2 obesity due to excess calories without serious comorbidity with body mass index (BMI) of 35.0 to 35.9 in adult; History of hypertension; Lichen sclerosus; Gastroesophageal reflux disease, unspecified whether esophagitis present; Chronic constipation; Vitamin D deficiency; TMJ pain dysfunction syndrome; Primary osteoarthritis of left knee; Osteopenia of neck of femur, unspecified laterality; Chronic pain of both shoulders; Dyslipidemia; Depressive disorder 04/09/2024 Travel 04/08/2024 Telephone [facility] [address] [place] [address] Gladis Heredia MA chart prep 04/02/2024 10:30 AM EST Office Visit [facility] [address] [place] [address] Thang [place], NELSON Lichen sclerosus (Primary Dx); Post-inflammatory hyperpigmentation 04/02/2024 Travel 04/01/2024 Telephone [facility] [address] [place] [address] Antonia Cardozo MD Nurse Triage 03/17/2024 Refill [facility] [address], [place] [phone] Antonia Cardozo MD from Last 3 Months Immunizations Name Administration Dates Next Due Influenza Injectable Quadriv alant Preservative Free IIV4 MDCK 12/06/2020,12/23/2019,02/06/2019 Influenza injectable quadriv alent IIV4 with preservative 01/12/2015 Influenza injectable quadriv alent preservative free 02/28/2018,02/09/2017 Influenza, IIV3, injectable 12/15/2013, 1 Influenza, Split (incl. saw fied surface antigen) 01/14/2013,03/21/2012 Influenza, seasonal, injecta ble, preservative free 01/03/2016 Moderna Covid-19 Vaccine 12+ 02/02/2021,06/22/19 21,05/24/2020 TD (adult), 2 Lf tetanus tox oid, preservative free, adsorbed 08/13/2002 Tdap 08/26/2020 Zoster, Recombinant 10/28/2020,08/27/2020 Social History Tobacco Use Types Packs/Day Years Used Date Smoking Tobacco: Never Passive Smoke Exposure: Never Smokeless Tobacco: Never Tobacco Cessation:Counseling Given: Not Answered Alcohol Use Standard Drinks/Week Comments Never 0 [...] Don't know 12/19/2021 10 :15 AM EDT Last Filed Vital Signs Vital Sign Reading Time Taken Comments Blood Pressure 140/86 04/30/2024 3:59 PM EDT Pulse 83 04/30/2024 3:59 PM EDT Temperature 37.1 ??C (98.8 ??F) 04/30/2024 3:59 PM ED T Respiratory Rate 16 04/30/2024 3:59 PM EDT Oxygen Saturation 98% 04/30/2024 3:59 PM EDT Inhaled Oxygen Concentration - - Weight 82.6 kg (182 lb 3.2 oz) 04/30/2024 3:59 P M EDT Height 152.4 cm (5') 12/24/2023 10:36 AM EST Body Mass Index 35.58 12/24/2023 10:36 AM EST Plan of Treatment Health Maintenance Due Date Last Done Comments CT Colonography 1958 Dental Oral Exam 1958 Dental Prophylaxis 1958 Dental X-Ray: Full Mouth 1958 FIT DNA/Cologuard 1958 FOBT 1958 Sigmoidoscopy 1960 Hepatitis C Screening 02/08/1976 Pneumococcal Vaccine: 50+ Years (1 of 1 - PCV) 02/08/2008 FIT 10/29/2021 10/29/2020 COVID-19 Vaccine ( - season) 2023 02/02/2021, 06/21/2020, 05/24/2020 Influenza Vaccine (#1) 2023 , 12/23/2019, 02/06/2019, Additional history exists Dental X-Ray: Bitewings 04/03/2024 04/02/2023 Diabetes: Hemoglobin A1C 06/19/2024 024, 07/04/2022, 10/31/2021, Additional history exists Depression Screening 09/20/2024 09/21/2023, 09/21/19 24 SDOH Screening 09/20/2024 09/21/2023 Alcohol/Substance Use Screening 12/23/2024 12/24/2023 Mammogram 04/13/2025 04/13/2023, 07/05/2022 Tobacco Screening 04/13/2025 04/13/2024 Colonoscopy 08/09/2025 08/09/2020 Colorectal Cancer Screening 08/09/2025 Lipid Panel 02/05/2029 02/06/2024, 05/0 02/2023, 07/04/2022, Additional history exists DTaP/Tdap/Td Vaccines (2 - Td or Tdap) 08/26/2030 08/26/2020, 08/13/2002 RSV Patients and Patients Aged 60 years or older (1 - 1-dose 75+ series) 2033 Cervical Cancer Screening Discontinued HPV/Cotest Discontinued 03/15/2020, 03/15/2020 Zoster Vaccines Completed 10/28/2020, 08/27/2020 HIB Vaccines Aged Out No longer eligi ble based on patient's age to complete this topic HPV Vaccines Aged Out No longer eligi ble based on patient's age to complete this topic Hepatitis A Vaccines Aged Out No long er eligible based on patient's age to complete this topic Hepatitis B Vaccines Aged Out No long er eligible based on patient's age to complete this topic IPV Vaccines Aged Out No longer eligi ble based on patient's age to complete this topic Meningococcal Vaccine Aged Out No yun matteo eligible based on patient's age to complete this topic Pap Smear Discontinued RSV under 20 months Aged Out No longe r eligible based on patient's age to complete this topic Rotavirus Vaccines Aged Out No longer eligible based on patient's age to complete this topic Procedures Procedure Name Priority Date/Time Associated Diagnosis Comments POCT INFLUENZA B (ID NOW RAPID MOLECULAR) Routine 05/01/2024 8:43 AM EDT Influenza A POCT INFLUENZA A (ID NOW RAPID MOLECULAR) Routine 05/01/2024 8:42 AM EDT Influenza A LIPID PANEL WITH REFLEX TO DIRECT LDL Routine 02/06/2024 11:09 AM EST Dyslipidemia HEMOGLOBIN A1C Routine 06/20/2023 11:25 AM EDT Dyslipidemia BI MAMMOGRAM SCREENING TOMOSYNTHESIS BILATERAL Routine 04/13/2023 12:08 PM EST BITEWING - SINGLE RADIOGRAPHIC IMAGE Routine 04/02/2023 2:30 PM EST Symptomatic irreversible pulpitis Dental abscess ZZZ HISTORICAL FECAL IMMUNOCHEMICAL TEST X1 (FIT) Routine 10/29/2020 12:00 PM EDT HM COLONOSCOPY Routine 08/09/2020 ZZZ HISTORICAL HPV E6/E7 RFLX SHANELL 16 18/45 Routine 03/15/2020 11:56 AM EST from Last 3 Months or Most Recently Relevant to Health Maintenance Results * POCT Rapid Influenza B FLORES ID NOW (05/01/2024 8:43 AM EDT) Influenza B Negative Negative, Indeterminate [facility] QC Media Lot # [id number] [facility] Lot# Expiration Date [facility] Swab 05/01/2024 8:43 AM EDT [facility] POINT OF CARE TEST ENTER/ EDIT ORDERABLES Final Result Performing Organization Address City/[facility]/ZIP Co de Phone Number [facility] [address] [place] [address] [phone] * (ABNORMAL) POCT Rapid Influenza A FLORES ID NOW (05/01/2024 8:42 AM EDT) Pathologist [facility] Influenza A Positive( A) Negative, Indeterminate [facility] QC Media Lot # [id number] [facility] Lot# Expiration Date [facility] Swab 05/01/2024 8:42 AM EDT [facility] POINT OF CARE TEST ENTER/ EDIT ORDERABLES Final Result Performing Organization Address City/[facility] Co de Phone Number [facility] [address] [place] [address] [phone] * (ABNORMAL) Lipid Panel with Reflex to Direct LDL (02/06/2024 11:09 AM EST) Triglycerides 88 <150 mg/dL [facility] Comment:Desirable Triglyceri de: less than 150 mg/dLBorderline High Triglyceride 150-199 mg/dLHigh Triglyceride: 200-499 mg/dLVery High Triglyceride: greater than or equal to 5OO mg/dL Cholesterol 207(H) <200 mg/dL [facility] Comment:Desirable Cholestero l: less than 200 mg/dLBorderline High Cholesterol: 200-239 mg/dLHigh Cholesterol: greater than 239 mg/dL LDL Cholesterol Calculated 137(H) <100 mg/dL [facility] Comment:Desirable LDL: less than 100 mg/dLNear Optimal/Above Optimal LDL: 110- 129 mg/dLBorderline High LDL: 130-159 mg/dLHigh LDL: 160-189 mg/dLVery High LDL: greater than or equal to 190 mg/dL HDL Cholesterol 53 >40 mg/dL [facility] Comment:Desirable HDL: great er than 40 mg/dL Note: This HDL assay may give artificially low results in patients with liver disease. Blood 02/06/2024 11:0 9 AM EST 02/06/2024 1:50 PM EST Antonia Cardozo MD LAB BLOOD ORDERABLES Final Resul t Performing Organization Address [facility] Co de Phone Number [facility] [address] [place] [phone] * Hemoglobin A1c (06/20/2023 11:25 AM EDT) Hemoglobin A1c 5.7 <6.0 % [facility] Comment:Hemoglobin A1C Refer ence Range Adults: 4.8 - 6.0 % Non diabetic: < 6.0 % Goal: < 7.0 %Additional Action Suggested: > 8.0 %Note: Hemoglobin A1c results are invalid for patients with abnormal amounts of HbF. Blood transfusions may impact the HbA1c concentration in the patient sample. Estimated Average Glucose 117 mg/dL [facility] Comment:eAG = Estimated ave rage glucose which is %A1C expressed asaverage glucose, using the formula of the I1V-XpmmadgSgjsuop Glucose study (ADAG), Diabetes Care, Vol.31,#8,Sep. 2007 Blood Venous blood specimen / Unknown 06/20/2023 11:25 AM EDT 06/20/2023 12:54 PM EDT Antonia Cardozo MD LAB BLOOD ORDERABLES Final Resul t Performing Organization Address [facility] Co de Phone Number [facility] [address] [place] [phone] * BI Mammogram Screening Tomosynthesis Bilateral (04/13/2023 12:08 PM EST) Anatomical Region Laterality Modality Breast Bilateral Mammography 04/13/2023 12:0 8 PM EST Narrative 05/02/2023 10:08 PM EDT ? [facility] ? [address] ?[place], [place] [address] ? Mammography Report ? Signed ? Patient: Trina Domingo ?MR#: ?? [id number] ? : 1960 ?Acct:[id number] ? Age/Sex: 63 / F ?ADM Date: 04/13/23 ? Loc: HO.MAMMO ? Attending Dr: Antonia Cardozo MD ? Ordering Physician: Antonia Carodzo MD ?Results: 1Negative ? Date of Service: 04/13/23 ?Follow Up: 1 Year From Orig ?? inal Mammogram ? Procedure(s): MM tomosynthesis screening BI ?? Accession Number(s): [id number] ? cc: Antonia Cardozo MD ? EXAMINATION: ?? MM SCREENING DIGITAL BREAST TOMOSYNTHESIS, BILATERAL ? CLINICAL INFORMATION: ? Screening. Asymptomatic. ? COMPARISON: ?? Mammography: This study is compared with prior exams dating back to ?? 2019. ? TECHNIQUE: ?? Digital breast tomosynthesis is performed in both the craniocaudal and ?? mediolateral oblique views along with computer-aided detection (CAD). ?? Synthesized 2D images are generated from the tomosynthesis. ? FINDINGS: ?? There are scattered areas of fibroglandular density (ACR BI-RADS breast ?? composition Category b). ? There are no significant masses, abnormal calcifications, or other ?? abnormalities. ? MM/MM tomosynthesis screening BI ?? IMPRESSION: ?? No mammographic evidence of malignancy. ? ASSESSMENT: ? BI-RADS BI-RADS 1 - Negative ? RECOMMENDATION: ?? Routine annual mammography screening. ? 1 year F/U ? This examination should not preclude the clinical evaluation of a ?? suspicious palpable abnormality. ? This patient's information was entered into a reminder system with a ?? target due date for their next mammogram. ? Dictated By: ?Marie Puente MD ? Signed By: ?<Electronically signed by Marie Puente MD in OV> ? 05/02/233 ? DD/ 1208 ? TD/TT: ? Active Directory Systems Administrator: ? Procedure Note [place], Image - 05/02/2023 [facility] [address] [place] [address] Mammography Report Signed Patient: Trina Domingo GMR#: [id number] : 8Acct:[id number] Age/Sex: 63 / FADM Date: 04/13/23 Loc: [facility] Attending Dr: Antonia Cardozo MD Ordering Physician: Antonia Cardozo MDResults: 1Negative Date of Service: 04/13/23Follow Up: 1 Year From Orig inal Mammogram Procedure(s): MM tomosynthesis screening BI Accession Number(s): [id number] cc: Antonia Cardozo MD EXAMINATION: MM SCREENING DIGITAL BREAST TOMOSYNTHESIS, BILATERAL CLINICAL INFORMATION: Screening. Asymptomatic. COMPARISON: Mammography: This study is compared with prior exams dating back to 2019. TECHNIQUE: Digital breast tomosynthesis is performed in both the craniocaudal and mediolateral oblique views along with computer-aided detection (CAD). Synthesized 2D images are generated from the tomosynthesis. FINDINGS: There are scattered areas of fibroglandular density (ACR BI-RADS breast composition Category b). There are no significant masses, abnormal calcifications, or other abnormalities. MM/MM tomosynthesis screening BI IMPRESSION: No mammographic evidence of malignancy. ASSESSMENT: BI-RADS BI-RADS 1 - Negative RECOMMENDATION: Routine annual mammography screening. 1 year F/U This examination should not preclude the clinical evaluation of a suspicious palpable abnormality. This patient's information was entered into a reminder system with a target due date for their next mammogram. Dictated By: Marie Puente MD Signed By: <Electronically signed by Marie Puente MD in OV> 05/02/23 2143 DD/ 1208 TD/TT: Active Directory Systems Administrator: Antonia Cardozo MD IMG BI PROCEDURES Edited Result - Final * Fecal immunochemical test x1 (FIT) (10/29/2020 12:00 PM EDT) FIT Date 1 10/28/20 [facility] FIT Date 2 10/29/20 [facility] FIT1 NEGATIVE NEGATIVE [facility] FIT2 NEGATIVE NEGATIVE [facility] 10/29/2020 12:0 0 PM EDT Historical Provider HISTORICAL/NON ORDERABLE LABS Final Result [facility] [address] * Hm Colonoscopy (08/09/2020) Colonoscopy Normal Normal [facility] Final Result * HPV E6/E7 RFLX SHANELL 16 18/45 (03/15/2020 11:56 AM EST) HPV 16 RNA TNP [facility] HPV 18/45 RNA TNP [facility] HPV E6 E7 ADD TNP [facility] HPV mRNA E6/E7 rflx Not Detected Not Detected [facility] Comment: This test was performed using the APTIMA HPV Assay ([employer] This assay detects E6/E7 viral messenger RNA (mRNA) from 14 high-risk HPV types (16,18,31,33,35,39,45,51,52,56,58,59,66,68). The analytical performance characteristics of this assay have been determined by [employer]. The modifications have not been cleared or approved by the FDA. This assay has been validated pursuant to the CLIA regulations and is used for clinical purposes. THIS TEST WAS PERFORMED AT: [facility] [address] [address],[address] [place], [place] ??[id number] MARGARITA MEDINA MD 03/15/2020 11:5 6 AM EST Jessee Nascimento MD HISTORICAL/NON ORDERABLE LABS Fi nal Result [facility] [address] from Last 3 Months or Most Recently Relevant to Health Maintenance Insurance [facility] [address] [place] [address] [place] [address] [place] [phone] Care Teams Winder Operator Relationship Specialty Start Date End Date Antonia Cardozo MD [address] [place] [phone] PCP - General Family Medicine 06/08/22
--- OUTSIDE RECORDS SUMMARY | 2024-05-28 16:46 | XMS_ITS | Encounter Summary ---
Author Organization [employer] Address [address] [facility] [facility] [address] 7[address] [place] [address] Care Team Providers Care Reporting Specialist Name Role Phone Antonia Cardozo MD Primary Care Provider [phone] Reason for Visit * Reason Onset Date Comments Nurse Triage 09/10/2023 Encounter Details Date Type Department Care Team ([facility] st Contact Info) Description 09/10/2023 Telephone [facility] MEDICINE [address] [place], [place] [phone] Antonia Cardozo MD [address] [place], [place] [phone] Nurse Triage Social History Tobacco Use Types Packs/Day Years Used Date Smoking Tobacco: Never Passive Smoke Exposure: Never Smokeless Tobacco: Never Alcohol Use Standard Drinks/Week Comments Never 0 (1 standard drink = 0.6 oz pur e alcohol) Depression Answer Date Recorded Patient Health Questionnaire-9 Score 0 07/04/2022 Housing Stability Answer Date Recorded What is your housing situation today? I have uziel saez 12/08/[address] you li ve. Do you have problems with any of the following? None of the above 12/08/2022 Food Insecurity Answer Date Recorded Within the past 12 months, y ou worried that your food would run out before you got money to buy more: Never True 12/08/2022 Within the past 12 months,th e food you bought just didn't last and you didn't have enough money to get more: Never True Transportation Answer Date Recorded In the past 12 months, has l ack of transportation kept you from medical appts, meetings, work or from getting things needed for daily living? No 12/08/2022 Utilities Answer Date Recorded In the past 12 months, has t he electric, gas, oil or water company threatened to shut off services in your home? No 12/08/2022 Depression Answer Date Recorded Patient Health Questionnaire-2 Score 0 07/04/2022 Comments Unknown Sex and Gender Information Value Date Recorded Sex Assigned at Female 12/19/2021 10:15 AM EDT Legal Sex Female 10:15 AM EDT Gender Identity Female 12/19/2021 10:15 AM EDT Sexual Orientation Don't know 12/19/2021 10 :15 AM EDT documented as of this encounter Miscellaneous Notes * Telephone Encounter - Jackelin Robert RN - 09/10/2023 12:47 PM EDT Triage call with [employer] Machine Setter ID [id number] Pt reports itchiness of skin , widespread, for last week. Pt has had this in the past about the same time of year last year. Pt denies any changes in soaps or detergent. Pt denies any other symptoms,just itchiness. Home care reviewed with Pt. Pt is advised to come to [facility] today or tomorrow morning.Hours 830am - 800pm. Pt agrees with disposition and will try to implement some home care advised. In surance is verified as active prior to booking. Protocol Used: Itching - Widespread (Adult) Protocol-Based Disposition: See in Office or Video Visit within 3 Days Video visit not offered Positive Triage Question: * Widespread itching and cause unknown and present > 48 hours * All higher-acuity triage questions were negative Care Advice Discussed: * Reassurance and Education - Widespread Itching * Don't Scratch * Avoid Soaps * Moisturize the Skin With Lotion * Reducing the Itch - A Cool Bath * Reducing the Itch - Oatmeal (Aveeno) Bath * Antihistamine Medicines for Severe Itching * Reasons To Call Back - Rash occurs - Itching becomes worse or lasts over 48 hours - You become worse * Telephone Encounter - Jennifer Lei - 09/10/2023 12:09 PM EDT Symptom: Itching - No Rash Outcome: Schedule an urgent appointment (within 4 hours) or talk to a nurse or provider soon Reason: Severe itching now, all body. The caller accepted this outcome Uruguayan speaker documented in this encounter Plan of Treatment Not on file documented as of this encounter Visit Diagnoses Not on filedocumented in this encounter Additional Health Concerns Assessment Noted Time PHQ-9 Depression Total Score: 0 07/05/19 10:11 AM EDT documented as of this encounter Care Teams Reporting Specialist Relationship Specialty Start Date End Date Antonia Cardozo MD [address] [place] [address] PCP - General Family Medicine 06/08/22 documented as of this encounter
--- OUTSIDE RECORDS SUMMARY | 2024-05-28 16:46 | XMS_ITS | Encounter Summary ---
Author Organization [facility] Address [address] [facility] 7t [place] [address] Care Team Providers Care Nail Polish Brush Machine Feeder Name Role Phone Zoe Orozco MD [facility] Primary Care Provider [phone] Antonia Cardozo MD Primary Care Provider [phone] Encounter Details Date Type Department Care Team (Latest Contact Info) Description 10/03/2021 Abstract [facility] CONVERSIONS Dental, Provider, DDS Social History Tobacco Use Types Packs/Day Years Used Date Smoking Tobacco: Never Assessed Comments Unknown Sex and Gender Information Value Date Recorded Sex Assigned at Female 12/19/2021 10:15 AM EDT Legal Sex Female 10:15 AM EDT Gender Identity Female 12/19/2021 10:15 AM EDT Sexual Orientation Don't know 12/19/2021 10 :15 AM EDT documented as of this encounter Plan of Treatment Not on file documented as of this encounter Visit Diagnoses Not on filedocumented in this encounter Care Teams Nail Polish Brush Machine Feeder Relationship Specialty Start Date End Date Zoe Orozco MD PCP - General Family Medicine 08/08/19 04/30/22 [facility] [address] [place] [address] PCP - General Family Medicine 05/01/22 06/07/22 Antonia Cardozo MD [address] [place], [place] [phone] PCP - General Family Medicine 06/08/22 documented as of this encounter
--- OUTSIDE RECORDS SUMMARY | 2024-05-28 16:46 | XMS_ITS | Encounter Summary ---
Author Organization [employer] Address [address] [address] [address] 7[address] [place] [address] Care Team Providers Care Bulb Filler Name Role Phone Antonia Cardozo MD Primary Care Provider [phone] Encounter Details Date Type Department Care Team (Late st Contact Info) Description 07/05/2022 Abstract [facility] MEDICINE [address] [place], [place] [phone] Antonia Cardozo MD [address] [place], [place] [phone] Social History Tobacco Use Types Packs/Day Years Used Date Smoking Tobacco: Never Passive Smoke Exposure: Never Smokeless Tobacco: Never Alcohol Use Standard Drinks/Week Comments Never 0 (1 standard drink = 0.6 oz pur e alcohol) Depression Answer Date Recorded Patient Health Questionnaire-9 Score 0 07/04/2022 Depression Answer Date Recorded Patient Health Questionnaire-2 Score 0 07/04/2022 Comments Unknown Sex and Gender Information Value Date Recorded Sex Assigned at Female 12/19/2021 10:15 AM EDT Legal Sex Female 10:15 AM EDT Gender Identity Female 12/19/2021 10:15 AM EDT Sexual Orientation Don't know 12/19/2021 10 :15 AM EDT COVID-19 Exposure Response Date Recorded In the last 10 days, have yo u been in contact with someone who was confirmed or suspected to have Coronavirus/COVID-19? No / Unsure 07/04/2022 9:55 AM EDT documented as of this encounter Plan of Treatment Not on file documented as of this encounter Procedures Procedure Name Priority Date/Time Associated Diagnosis Comments HM MAMMOGRAPHY Routine 07/05/2022 11:48 AM EDT documented in this encounter Results * Mammography (07/05/2022 11:48 AM EDT) Mammogram bi rads 1 Anatomical Region Laterality Modality Other us Zoe Orozco MD HEALTH MAINTENANCE Final Res ult documented in this encounter Visit Diagnoses Not on filedocumented in this encounter Additional Health Concerns Assessment Noted Time PHQ-9 Depression Total Score: 0 07/05/19 10:11 AM EDT documented as of this encounter Care Teams Bulb Filler Relationship Specialty Start Date End Date Antonia Cardozo MD [address] [place] [address] PCP - General Family Medicine 06/08/22 documented as of this encounter
--- OUTSIDE RECORDS SUMMARY | 2024-05-28 16:46 | XMS_ITS | Encounter Summary ---
Author Organization [employer] Address [address] [facility] [facility] [address] [place] [address] Care Team Providers Care Spot Machine Operator Name Role Phone Antonia Cardozo MD Primary Care Provider [phone] Encounter Details Date Type Department Care Team (Late st Contact Info) Description 04/04/2023 Telephone [facility] ADULT DENTAL [address] [place] [address] Valorie Michaud, [facility] [address] [place] [address] Social History Tobacco Use Types Packs/Day Years [...] encounter Miscellaneous Notes * Telephone Encounter - Maria Guadalupe Shannon - 04/04/2023 3:06 PM EST Patient needs her anazolene documented in this encounter Plan of Treatment Not on file documented as of this encounter Visit Diagnoses Not on filedocumented in this encounter Additional Health Concerns Assessment Noted Time PHQ-9 Depression Total Score: 0 07/05/19 10:11 AM EDT documented as of this encounter Care Teams Spot Machine Operator Relationship Specialty Start Date End Date Antonia Cardozo MD [address] [place] [address] PCP - General Family Medicine 06/08/22 documented as of this encounter
--- OUTSIDE RECORDS SUMMARY | 2024-05-28 16:46 | XMS_ITS | Encounter Summary ---
Author Organization [employer] Address [address] [facility] [address] [place] [address] Care Team Providers Care Field Services Analyst Name Role Phone Antonia Cardozo MD Primary Care Provider [phone] Reason for Visit * Reason Comments Med Refill Encounter Details Date Type Department Care Team ([facility] st Contact Info) Description 10/26/2023 Refill [facility] ADULT DENTAL [address] [place], [place] [phone] Adam Wynn DDS [address] [place] [address] Social History Tobacco Use Types Packs/Day Years [...] encounter Miscellaneous Notes * Telephone Encounter - Adam Wynn DDS - 10/26/2023 11:22 AM EDT Today @ 11:20 AM I called Trina, no answer. Refuse / declined to approve requested prescription, pt. Needs to see the dentist. Dr. Wynn documented in this encounter Plan of Treatment Not on file documented as of this encounter Visit Diagnoses Not on filedocumented in this encounter Additional Health Concerns Assessment Noted Time PHQ-9 Depression Total Score: 0 09/21/19 24 9:49 AM EDT documented as of this encounter Care Teams Field Services Analyst Relationship Specialty Start Date End Date Antonia Cardozo MD [address] [place] [address] PCP - General Family Medicine 06/08/22 documented as of this encounter
--- OUTSIDE RECORDS SUMMARY | 2024-05-28 16:46 | XMS_ITS | Encounter Summary ---
Author Organization [employer] [facility] Address [address] [facility] 7t [place] [address] Care Team Providers Care Review Rn Name Role Phone Zoe Orozco MD Primary Care Provider [facility] Primary Care Provider [phone] Antonia Cardozo MD Primary Care Provider [phone] Encounter Details Date Type Department Care Team (Latest Contact Info) Description 09/08/2020 Abstract [facility] CONVERSIONS Dental, Provider, DDS Social History [...] on filedocumented in this encounter Care Teams Review Rn Relationship Specialty Start Date End Date Zoe Orozco MD PCP - General Family Medicine 08/08/19 04/30/22 [facility] [address] [place] [address] PCP - General Family Medicine 05/01/22 06/07/22 Antonia Cardozo MD [address] [place], [place] [phone] PCP - General Family Medicine 06/08/22 documented as of this encounter
== END 2024-05-28 14:35 | disposition home or self-care (01) ==
PROVIDERS: Emergency Provider Emergency Medicine
DX: S60.221A Contusion of right hand, initial encounter (principal); S89.92XA Unspecified injury of left lower leg, initial encounter; M25.562 Pain in left knee; M79.641 Pain in right hand; W01.0XXA Fall on same level from slipping, tripping and stumbling without subsequent striking against object, initial encounter; Y93.9 Activity, unspecified; Y92.9 Unspecified place or not applicable; Y99.8 Other external cause status; Z79.899 Other long term (current) drug therapy
CPT/HCPCS: 73130; 73564; 99282; 99283

== ENCOUNTER → 2024-05-28 13:34 | Outpatient (BNV) | payer OTHER, SELFPAY | PROVIDERS: Emergency Provider Emergency Medicine; Visit Provider Radiology Diagnostic Radiology | DX: M25.562 Pain in left knee (principal); M79.641 Pain in right hand | CPT/HCPCS: 73130; 73564 ==

== ENCOUNTER 2024-06-16 11:48 | Outpatient (AMB) | payer OTHER, SELFPAY ==
--- NOTE | 2024-06-16 11:53 | A.OFFVIS_ITS ---
Vital Signs 06/16/24 12:00 Height 5 ft Weight 183 lb BMI 35.7 BP 138/85 Blood Pressure Location Lt brachial Position Sitting Pulse 74 Pulse Oximetry (%) 99 Oxygen Delivery Method Room Air Intake Visit Reasons: 4 months f/u Intake Note: patient follow up for acid reflex. Patient cc: constipation on and off, swallowing difficulty on and off, denies any other GI issues for today visit. Asbestos Pipe Supervisor Required: Yes Asbestos Pipe Supervisor Name: [facility] [place] Accompanied by: Self / Same As Patient Allergies oxycodone [From Percocet] Allergy (Mild, Verified 06/16/24 11:52) ABDOMINAL PAIN amlodipine [From NORVASC] Adverse Reaction (Severe, Verified 06/16/24 11:52) STOMACH UPSET/ANXIETY HPI HPI 4 months f/u: Details: 64 yr old f here for f/u Had been seeing [facility] [place] reflux and dysphagia Had EGD 09/24/23 Impression/Findings: gastritis duodenitis esophagitis hiatal hernia Path: chronic active inflammation GEJ active esophagitis chronic inactive duodenitis She also had balloon dilation TSH neg H pylori stool neg in past colonsocopy 2020- poor prep in some areas, moderate diverticulosis INTERIM: she feels better in terms of her gerd changed her diet she takes linszess prn and it works pretty good overall she is happy EXAM: GENERAL: The patient is well developed and nontoxic. VITAL SIGNS:see workflow HEENT: Nonicteric sclerae, PERRLA, EOMI. Oropharynx clear. Moist mucous membranes. Conjunctivae appear well perfused. No thyroid mass. CHEST: Chest wall is nontender. HEART: Regular rate and rhythm without murmurs. LUNGS: Clear to auscultation bilaterally. ABDOMEN: Soft, positive bowel sounds, nontender, no organomegaly.no flank tenderness SKIN: No rash, no excessive bruising, petechiae, or purpura. NEUROLOGIC: Cranial nerves II-XII intact without motor/sensory deficit. 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 Chronic constipation Anxiety Hypothyroid Vitamin D deficiency Surgical History Hx of tubal ligation History of carpal tunnel release Hx of eye surgery Hx of dilation and curettage Hx of repair of right rotator cuff Hx of repair of left rotator cuff Hx of colonoscopy Hx of esophagogastroduodenoscopy Hx of cataract removal with insertion of prosthetic lens Hx of section Family History Father Pulmonary edema without heart failure COPD (chronic obstructive pulmonary disease) Mother CVD (cardiovascular disease) Diabetes Sudden cardiac Sister Diabetes Schizo-affective schizophrenia Brother Throat cancer Epilepsy Social History Household Members Other:: son Housing: Apartment Are you a primary health and social care teacher to a significant other at home: No Alcohol intake: never Patient Tobacco Use Status: Never used Tobacco Second Hand Smoke Exposure: No Current occupational status: disabled Sexual orientation: Straight/Heterosexual Gender identity: Female Female Reproductive History Menstrual Age of Menarche: 12 Physical Exam Vital Signs: Last Vital Signs Pulse 74 06/16/24 12:00 BP 138/85 06/16/24 12:00 Pulse Ox 99 06/16/24 12:00 Oxygen Delivery Method Room Air 06/16/24 12:00 BMI result Body Mass Index 35.7 Assessment & Plan Assessment & Plan (1) Diverticulosis of colon: Comment: discussed divertic/ diverticulitis HFD- Code(s): K57.30 - Diverticulosis of large intestine without perforation or abscess without bleeding Category: Medical Plan: see above Medications: Refilled Linzess (linaclotide) 145 mcg PO DAILY 30 caps 4RF NS pantoprazole 40 mg PO DAILY 60 tabs 3RF Coding Level of Care Code Est Pt Level 3 (58036) Diagnoses Diverticulosis of colon K57.30
[2024-06-16 12:00] VITALS: BP 138/85; PULSE 74; O2SAT 99; BMI 35.7
--- OUTSIDE RECORDS SUMMARY | 2024-06-16 14:10 | XMS_ITS | Encounter Summary ---
Author Organization [employer] [facility] Address [address] [place] [address] Care Team Providers Care Transcription Typist Name Role Phone Zoe Orozco MD Primary Care Provider Stevie williamson [facility] Primary Care Provider [phone] Antonia Cardozo MD Primary Care Provider [phone] Encounter Details Date Type Department Care Team (Latest Contact Info) Description 09/08/2020 Abstract [facility] CONVERSIONS Dental, Provider, DDS Social History [...] as of this encounter Plan of Treatment Upcoming Encounters Date Type Department Care Team (Late st Contact Info) Description 06/23/2024 9:30 AM EDT Clinical Support [facility] MEDICINE [address] [place] [address] documented as of this encounter Visit Diagnoses Not on filedocumented in this encounter Care Teams Transcription Typist Relationship Specialty Start Date End Date Zoe Orozco MD PCP - General Family Medicine 08/08/19 04/30/22 [facility] [address] [place] [address] PCP - General Family Medicine 05/01/22 06/07/22 Antonia Cardozo MD [address] [place] [address] PCP - General Family Medicine 06/08/22 documented as of this encounter
--- OUTSIDE RECORDS SUMMARY | 2024-06-16 14:10 | XMS_ITS | Encounter Summary ---
Author Organization [employer] [facility] Address [address] [place] [address] Care Team Providers Care Weather Reporter Name Role Phone Antonia Cardozo MD Primary Care Provider [phone] Encounter Details Date Type Department Care Team (Late Contact Info) Description 07/05/2022 Abstract [facility] MEDICINE [address] [place] [id number] Antonia Cardozo MD [address] [place] [address] Social History Tobacco Use Types Packs/Day Years [...] Encounters Date Type Department Care Team (Late Contact Info) Description 06/23/2024 9:30 AM EDT Clinical Support [facility] MEDICINE [address] [place] [address] documented as of this encounter Procedures Procedure Name Priority Date/Time Associated Diagnosis Comments MAMMOGRAPHY Routine 07/05/2022 11:48 AM EDT documented [...] documented as of this encounter Care Teams Weather Reporter Relationship Specialty Start Date End Date Antonia Cardozo MD [address] [place] [address] PCP - General Family Medicine 06/08/22 documented as of this encounter
--- OUTSIDE RECORDS SUMMARY | 2024-06-16 14:10 | XMS_ITS | Encounter Summary ---
Author Organization [employer] Address [address] [place] [address] Care Team Providers Care Business Continuity Specialist Name Role Phone Antonia Cardozo MD Primary Care Provider [phone] Reason for Visit * Reason Onset Date Comments ER Follow-up 05/30/2024 Transition Of Care (Tcm) 05/30/2024 Encounter Details Date Type Department Care Team ([facility] st Contact Info) Description 05/30/2024 Telephone [facility] MEDICINE [address] [place] [address] Antonia Cardozo MD [address] [place] [address] ER Follow-up; Transition Of Care (Tcm) Social History Tobacco Use Types Packs/Day Years [...] encounter Miscellaneous Notes * Telephone Encounter - Alexandrea Colmenares RN - 05/30/2024 4:38 PM EDT Please assist with obtaining discharge summary for [facility] ED visit on 05/28/24 for provider review priorto upcoming appointment. Future Appointments Date Time Provider Department Center 06/05/2024 2:30 PM Day Lala MD MEDICINE [facility] * Telephone Encounter - Alexandrea Colmenares RN - 05/30/2024 4:22 PM EDT Hospital Discharges and Admission for [facility] Type of Visit: Emergency Department Date of Admission/Visit: 05/28/24 Facility: [facility] Diagnosis: Fall, Strain to right hand, contusion left knee Disposition: Discharged Home Follow-Up Actions Follow-Up Needed: None/self-monitoring Follow-Up Outcome: Spoke to Patient Initial Contact Date: 05/30/24 Patient Contacted: Yes Patient Status: Unchanged Call returned to Trina Schilling to triage below. Reports having a mechanical fall and landed onto right hand and hit left knee. Per pt index and middle finger bent back when attempted to break fall. Pt states [facility] performed xrays and ruled out fractures. Instructed oTC tylenol/motrin and icecompression. PCP follow up if pain not improved. Per pt pain still the same. No large bruising. Mild swelling. Pt having mild effect from OTC meds. Having mild swelling of knee, still pain with ambulation. Advised PCP Out of office. Agrees to team provider follow up next week. Reviewed [facility] operating hours and that wait times vary. Reviewed to call in for Nurse Telephone Triage Service over weekend should sx change or new sx develop. Reviewed isntED contact as [employer] member. Reviewed home care advise, ER precautions and reasons to call back. Pt agrees. The full discharge summary is has been requested from [employer] Review Flowsheet [facility] Transition of Care Documentation Type of Visit Date of Admission/Visit Facility Diagnosis Disposition 05/30/2024 4:00 PM Emergency Department 05/28/2024 [facility] Fall, Strain to right hand, contusion left knee Discharged Home Recent Visits Date Type Provider Dept 04/30/24 Office Visit Reno Desir CNP [facility] Medicine 04/09/24 Office Visit Antonia Cardozo MD [facility] Medicine 04/02/24 Office Visit Reno Desir CNP [facility] Medicine 02/06/24 Office Visit Elzbieta Cooney NP [facility] Walk-In [facility] 12/24/23 Office Visit Antonia Cardozo MD [facility] Medicine 10/30/23 Office Visit Day Navarro MD [facility] Medicine 09/21/23 Office Visit Peyman Carter MD [facility] Medicine 06/20/23 Office Visit Antonia Cardozo MD [facility] Medicine Showing recent visits within past 365 days with a meds authorizing provider and meeting all other requirements Future Appointments No visits were found meeting these conditions. Showing future appointments within next 150 days with a meds authorizing provider and meeting all other requirements Patient was educated on hours of operation. * Telephone Encounter - Nicky Umang Nelson - 05/30/2024 4:02 PM EDT Patient calling to report ED visit on : Date: 05/28 Hospital: [facility] Seen for: Fall Symptomatic Yes *if yes message should go to Triage Patient advised will forward to team nurse for follow up [phone] comoran documented in this encounter Plan of Treatment Upcoming Encounters Date Type Department Care Team (Late st Contact Info) Description 06/23/2024 9:30 AM EDT Clinical Support [facility] MEDICINE [address] [place] [address] documented as of this encounter Visit Diagnoses Not on filedocumented in this encounter Additional Health Concerns Assessment Noted Time PHQ-9 Depression Total Score: 0 09/21/19 24 9:49 AM EDT documented as of this encounter Care Teams Business Continuity Specialist Relationship Specialty Start Date End Date Antonia Cardozo MD [address] [place] [address] PCP - General Family Medicine 06/08/22 documented as of this encounter
--- OUTSIDE RECORDS SUMMARY | 2024-06-16 14:10 | XMS_ITS | Encounter Summary ---
Author Organization [employer] Address [address] [place] [address] Care Team Providers Care Sand Temperer Name Role Phone Antonia Cardozo MD Primary Care Provider [phone] Reason for Visit * Reason Onset Date Comments Nurse Triage 09/10/2023 Encounter Details Date Type Department Care Team ([facility] st Contact Info) Description 09/10/2023 Telephone [facility] MEDICINE [address] [place], [place] [phone] Antonia Cardozo MD [address] [place], [place] [phone] Nurse Triage Social History Tobacco Use Types [...] 09/10/2023 12:47 PM EDT Triage call with [employer] Machine Setter ID [id number] Pt reports itchiness of skin , widespread, for last week. Pt has had this in the past about the same time of year last year. Pt denies any changes in soaps or detergent. Pt denies any other symptoms,just itchiness. Home care reviewed with Pt. Pt is advised to come to [facility] today or tomorrow morning.Hours 830am [...] all body. The caller accepted this outcome Solomon Islander speaker documented in this encounter Plan of Treatment Upcoming Encounters Date Type Department Care Team (Late st Contact Info) Description 06/23/2024 9:30 AM EDT Clinical Support [facility] MEDICINE [address] [place] [address] documented as of this encounter Visit Diagnoses Not on filedocumented in this encounter Additional Health Concerns Assessment Noted Time PHQ-9 Depression Total Score: 0 07/05/19 10:11 AM EDT documented as of this encounter Care Teams Sand Temperer Relationship Specialty Start Date End Date Antonia Cardozo MD [address] [place] [address] PCP - General Family Medicine 06/08/22 documented as of this encounter
--- OUTSIDE RECORDS SUMMARY | 2024-06-16 14:10 | XMS_ITS | Encounter Summary ---
Author Organization [employer] [facility] Address [address] [place] [address] Care Team Providers Care Cyber Software Engineer Name Role Phone Zoe Orozco MD Primary Care Provider Stevie williamson [facility] Primary Care Provider [phone] Antonia Cardozo MD Primary Care Provider Encounter Details Date Type Department Care Team (Latest Contact Info) Description 10/03/2021 Abstract [facility] CONVERSIONS Dental, Provider, DDS Social History Tobacco [...] Description 06/23/2024 9:30 AM EDT Clinical Support [facility] MEDICINE [address] [place] [address] documented as of this encounter Visit Diagnoses Not on filedocumented in this encounter Care Teams Cyber Software Engineer Relationship Specialty Start Date End Date Zoe Orozco MD PCP - General Family Medicine 08/08/19 04/30/22 [facility] [address] [place] [address] PCP - General Family Medicine 05/01/22 06/07/22 Antonia Cardozo MD [address] [place] [address] PCP - General Family Medicine 06/08/22 documented as of this encounter
--- OUTSIDE RECORDS SUMMARY | 2024-06-16 14:10 | XMS_ITS | Encounter Summary ---
Author Organization [employer] Address [address] [place] [address] Care Team Providers Care Cyber Threat Analyst Name Role Phone Antonia Cardozo MD Primary Care Provider [phone] Reason for Visit * Reason Comments Med Refill Encounter Details Date Type Department Care Team ([facility] st Contact Info) Description 12/30/2023 Refill [facility] MEDICINE [address] [place] [address] Day Alva MD [address] [place] [address] Social History Tobacco Use Types Packs/Day Years [...] Description 06/23/2024 9:30 AM EDT Clinical Support [facility] MEDICINE [address] [place] [address] documented as of this encounter Visit Diagnoses Not on filedocumented in this encounter Additional Health Concerns Assessment Noted Time PHQ-9 Depression Total Score: 0 09/21/19 24 9:49 AM EDT documented as of this encounter Care Teams Cyber Threat Analyst Relationship Specialty Start Date End Date Antonia Cardozo MD [address] [place] [address] PCP - General Family Medicine 06/08/22 documented as of this encounter
--- OUTSIDE RECORDS SUMMARY | 2024-06-16 14:10 | XMS_ITS | Clinical Summary ---
Author Organization [employer] Address [address] [facility] 7t [place] [address] Care Team Providers Care Senior Energy Market Coordinator Name Role Phone Antonia Cardozo MD Primary Care Provider [phone] Allergies Active Allergy Reactions Criticality Noted Date [...] FOR PAIN 100 g 2 024 Active cyclobenzaprine (Flexeril) 5 MG tabletIndications:Ar thralgia of left temporomandibular joint Take 1 tablet (5 mg) by mouth if needed at bedtime for muscle spasms for up to 14 days. 14 tablet 024 Active levothyroxine (Synthroid, Levoxyl) 112 MCG tablet TAKE 1 TABLET BY MOUTH EVERY MORNING 90 tablet 1 Active gabapentin (Neurontin) 100 MG capsule TAKE 1 CAPSULE BY MOUTH THREE TIMES DAILY 90 capsule Active D3 Super Strength 50 MCG (2000 [...] tablet 1 Active triamcinolone (Kenalog) 0.1 % ointmentIndications: Atopic dermatitis of both hands Apply topically 2 times daily. 30 g 1 025 Active clobetasol (Temovate) 0.05 % ointmentIndications: Lichen sclerosus,Post-infla mmatory hyperpigmentation Apply topically 2 times daily. 60 g 025 Active hydroCHLOROthiazide (HYDRODiuril) 25 MG tabletIndications:Pr imary hypertension Take 1 tablet (25 mg) by mouth Once per day. 30 tablet 11 025 2025 Active Blood Pressure Monitoring (Blood Pressure Cuff) miscIndications:Prim bonnie hypertension 1 each Once daily. 1 each Active Calcium 600/Vitamin D3 600-20 MG-MCG tablet TAKE 1 TABLET BY MOUTH EVERY MORNING 90 tablet 1 Active Calcium+D3 600-20 MG-MCG tablet TAKE 1 TABLET BY MOUTH EVERY MORNING 90 tablet 1 024 2024 Discontinued Active Problems Problem Noted Date Diagnosed Date Right hand pain 06/05/2024 Acute pain of left knee 06/05/2024 Assessment & Plan (06/06/2024 3:15 PM EDT): I advised to elevate her knee apply ice and rest I advised patient to take ibuprofen 600 mg with full stomach every 8 hours if needed I will refer her for physical therapy Primary hypertension 06/05/2024 Assessment & Plan (06/06/2024 3:14 PM EDT): Patient tells me she has been noticing her blood pressure has been high lately on review of chart several previous readings blood pressure out of goal, in light of this I decided to start her on hydrochlorothiazide 25 mg daily I recommended low-sodium diet and to log her blood pressure for her next visit with nurse in 2 weeks plan is if blood pressure is not at goal to increase hydrochlorothiazide 50 mg daily and follow-up with PCP (I did not choose amlodipine because it is listed as allergy) Lichen sclerosus 04/02/2024 Assessment & Plan (04/13/2024 [...] Plan (12/30/2023 6:10 AM EST): following with [facility]. 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 Assessment & Plan (04/13/2024 4:51 PM EST): - due to Hashimotos' thyroiditis - previously seen by [facility] - most recent TSH 0.32 on 02/06/24 - continue levothyroxine 112 mcg daily Obesity due to excess calories 12/19/2023 Primary osteoarthritis of left knee 12/19/2023 S/P colonoscopy 12/19/2023 Vitamin D deficiency 12/19/2023 Assessment & Plan (04/13/2024 4:56 PM EST): - continue supplement TMJ pain dysfunction syndrome 10/30/2023 Assessment & Plan (06/06/2024 3:15 PM EDT): As above Assessment & Plan (12/30/2023 6:13 AM EST): [...] (04/13/2024 4:52 PM EST): - following with [facility], last seen in Jan 2024 - [...] (12/30/2023 6:09 AM EST): - following with [facility], last seen in Dec 2022 - [...] (02/23/2023 4:10 PM EST): - following with [facility], last seen in Dec 2022 - [...] (12/30/2023 6:12 AM EST): - evaluated by [facility] provider, last seen in Oct 2023 [...] (04/13/2024 4:57 PM EST): - Followed by [facility] providers, psych, Dr Ortiz - On Gabapentin and hydroxyzine - No recent changes in medications - No SI/HI - Continue current treatment plan Assessment & Plan (07/07/2022 11:58 AM EDT): - Followed by [facility] providers, psych, Dr Ortiz - On Gabapentin [...] to Hashimotos' thyroiditis - previously seen by [facility] - most recent TSH 0.32 on 02/06/24 - continue levothyroxine 112 mcg daily Assessment & Plan (12/28/2023 3:45 PM EST): - due to Hashimotos' thyroiditis - previously seen by [facility] - most recent TSH 0.36 on 06/20/23 - continue levothyroxine 112 mcg daily Assessment & Plan (06/21/2023 12:07 AM EDT): - due to Hashimotos' thyroiditis - previously seen by [facility] - most recent TSH 0.36 on 06/20/23 - continue levothyroxine 112 mcg daily Assessment & Plan (02/23/2023 4:12 PM EST): - due to Hashimotos' thyroiditis - previously seen by [facility] - most recent TSH 1.28 on 07/04/22 - continue levothyroxine 112 mcg daily Assessment & Plan (11/13/2022 9:00 AM EDT): - due to Hashimotos' thyroiditis - previously seen by [facility] - most recent TSH 1.28 on 07/04/22 - continue levothyroxine 112 mcg daily Assessment & Plan (07/07/2022 11:53 AM EDT): - due to Hashimotos' thyroiditis - previously seen by [facility] - continue levothyroxine 112 mcg daily [...] Encounters Date Type Department Care Team Description 06/08/[address] [address] Antonia Cardozo MD 06/05/2024 2:30 PM EDT Office Visit [address] [address] Day Mcintosh MD Right hand pain (Primary Dx); Acute pain of left knee; Primary hypertension 06/05/2024 Travel 05/30/[address] [address] Antonia Cardozo MD ER Follow-up; Transition Of Care (Tcm) 04/30/2024 3:30 PM EDT Office Visit [address] [address] Reno Desir CNP Atopic dermatitis of both hands (Primary Dx); Lichen sclerosus; Post-inflammatory hyperpigmentation; Influenza A 04/30/2024 Travel 04/29/[address] [address] Antonia Cardozo MD Nurse Triage 04/10/[address] [address] Antonia Cardozo MD Chart Prep 04/09/2024 9:30 AM EST Office Visit [address] [address] Antonia Cardozo MD Elevated BP without diagnosis [...] Dyslipidemia; Depressive disorder 04/09/2024 Travel 04/08/[address] [address] Gladis Heredia MA chart prep 04/02/2024 10:30 AM EST Office Visit [facility] [address] [facility] [place] [address] Reno Desir CNP Lichen sclerosus (Primary Dx); Post-inflammatory hyperpigmentation 04/02/2024 Travel 04/01/2024 Telephone [facility] [address] [facility] [place] [address] Antonia Cardozo MD Nurse Triage from Last 3 Months Immunizations Name Administration [...] Sign Reading Time Taken Comments Blood Pressure 150/90 06/05/2024 3:11 PM EDT Pulse 85 06/05/2024 2:51 PM EDT Temperature 37 ??C (98.6 ??F) 06/05/2024 2:51 PM EDT Respiratory Rate 18 06/05/2024 2:51 PM EDT Oxygen Saturation 98% 06/05/2024 2:51 PM EDT Inhaled Oxygen Concentration - - Weight 84.9 kg (187 lb 3.2 oz) 06/05/2024 2:51 P M EDT Height 152.4 cm (5') 06/05/2024 2:51 PM EDT Body Mass Index 36.56 06/05/2024 2:51 PM EDT Plan of Treatment Upcoming Encounters Date Type Department Care Team ([facility] st Contact Info) Description 06/23/2024 9:30 AM EDT Clinical Support [facility] [address] [place] [address] Health Maintenance Due Date Last Done Comments [...] 12/24/2023 Mammogram 04/13/2025 04/13/2023, 07/05/2022 Tobacco Screening 06/05/2025 06/05/2024 Colonoscopy 08/09/2025 08/09/2020 Colorectal Cancer Screening 08/09/2025 [...] AM EDT) Influenza B Negative Negative, Indeterminate [facility] QC Media Lot # [id number] [facility] Lot# Expiration Date [facility] Swab 05/01/2024 8:43 AM EDT [facility] POINT OF CARE TEST ENTER/ EDIT ORDERABLES Final Result Performing Organization Address City/[facility]/ZIP Co de Phone Number [facility] [address] [place] [address] [phone] * (ABNORMAL) POCT Rapid Influenza A FLORES ID NOW (05/01/2024 8:42 AM EDT) Influenza A Positive( A) Negative, Indeterminate [facility] QC Media Lot # [id number] [facility] Lot# Expiration Date [facility] Swab 05/01/2024 8:42 AM EDT [facility] POINT OF CARE TEST ENTER/ EDIT ORDERABLES Final Result Performing Organization Address [facility] Co de Phone Number [facility] [address] [place] [phone] * (ABNORMAL) Lipid Panel with Reflex to Direct LDL (02/06/2024 11:09 AM EST) Triglycerides 88 <150 mg/dL [facility] Comment:Desirable Triglyceri de: less than 150 mg/dLBorderline High Triglyceride 150-199 mg/dLHigh Triglyceride: 200-499 mg/dLVery High Triglyceride: greater than or equal to 5OO mg/dL Cholesterol 207(H) <200 mg/dL [facility] Comment:Desirable Cholestero l: less than 200 mg/dLBorderline High Cholesterol: 200-239 mg/dLHigh Cholesterol: greater than 239 mg/dL LDL Cholesterol Calculated 137(H) <100 mg/dL [facility] Comment:Desirable LDL: less than 100 mg/dLNear Optimal/Above Optimal LDL: 110- 129 mg/dLBorderline High LDL: 130-159 mg/dLHigh LDL: 160-189 mg/dLVery High LDL: greater than or equal to 190 mg/dL HDL Cholesterol 53 >40 mg/dL [facility] Comment:Desirable HDL: great er than 40 mg/dL Note: This HDL assay may give artificially low results in patients with liver disease. Blood 02/06/2024 11:0 9 AM EST 02/06/2024 1:50 PM EST Antonia Cardozo MD LAB BLOOD ORDERABLES Final Resul t Performing Organization Address [facility] Co de Phone Number [facility] [address] [place] [phone] * Hemoglobin A1c (06/20/2023 11:25 AM EDT) Hemoglobin A1c 5.7 <6.0 % [facility] Comment:Hemoglobin A1C Refer ence Range Adults: 4.8 - 6.0 % Non diabetic: < 6.0 % Goal: < 7.0 %Additional Action Suggested: > 8.0 %Note: Hemoglobin A1c results are invalid for patients with abnormal amounts of HbF. Blood transfusions may impact the HbA1c concentration in the patient sample. Estimated Average Glucose 117 mg/dL [facility] Comment:eAG = Estimated ave rage glucose which is %A1C expressed asaverage glucose, using the formula of the U3Y-UacgtlcNprissr Glucose study (ADAG), Diabetes Care, Vol.31,#8,Sep. 2007 Blood Venous blood specimen / Unknown 06/20/2023 11:25 AM EDT 06/20/2023 12:54 PM EDT Antonia Cardozo MD LAB BLOOD ORDERABLES Final Resul t Performing Organization Address [facility] Co de Phone Number [facility] [address] [place] [phone] * BI Mammogram Screening Tomosynthesis Bilateral (04/13/2023 12:08 PM EST) Anatomical Region Laterality Modality Breast Bilateral Mammography 04/13/2023 12:0 8 PM EST Narrative 05/02/2023 10:08 PM EDT ? [facility] ? [address] ?[place] [address] ? Mammography Report ? Signed ? Patient: Shakir Schilling,Trina G ?MR#: ?? [id number] ? : 1960 ?Acct:[id number] ? Age/Sex: 63 / F ?ADM Date: 04/13/23 ? Loc: HO.MAMMO ? Attending Dr: Antonia Cardozo MD ? Ordering Physician: Antonia Cardozo MD ?Results: 1Negative ? Date of Service: 04/13/23 ?Follow Up: 1 Year From Orig ?? inal Mammogram ? Procedure(s): MM tomosynthesis screening BI ?? Accession Number(s): [id number] ? cc: Antonia Cardozo MD ? EXAMINATION: [...] by Marie Puente MD in OV> ? 05/02/232142 ? DD/ 1208 ? TD/TT: ? Food Broker: ? Procedure Note Donolenater, Image - 05/02/2023 [facility] [address] [place] [address] Mammography Report Signed Patient: Trina Domingo GMR#: [id number] : 8Acct:[id number] Age/Sex: 63 / FADM Date: 04/13/23 Loc: [place] Attending Dr: Antonia Cardozo MD Ordering Physician: Antonia Cardozo MDResults: 1Negative Date of Service: 04/13/23Follow Up: 1 Year From Orig inal Mammogram Procedure(s): MM tomosynthesis screening BI Accession Number(s): [id number] cc: Antonia Cardozo MD EXAMINATION: MM SCREENING [...] in OV> 05/02/23 2143 DD/ 1208 TD/TT: Food Broker: Antonia Cardozo MD IM BI PROCEDURES Edited Result - Final * Fecal immunochemical test x1 (FIT) (10/29/2020 12:00 PM EDT) Pathologist [facility] FIT Date 1 10/28/20 [facility] FIT Date 2 10/29/20 [facility] FIT1 NEGATIVE NEGATIVE [facility] FIT2 NEGATIVE NEGATIVE [facility] 10/29/2020 12:0 0 PM EDT Historical Provider HISTORICAL/NON ORDERABLE LABS Final Result [facility] [address] * Hm Colonoscopy (08/09/2020) Pathologist [facility] Colonoscopy Normal Normal [facility] Final Result * HPV E6/E7 RFLX SHANELL 16 18/45 (03/15/2020 11:56 AM EST) Pathologist [facility] HPV 16 RNA TNP [facility] HPV 18/45 RNA TNP [facility] HPV E6 E7 ADD TNP [facility] HPV mRNA E6/E7 rflx Not Detected Not Detected [facility] Comment: This test was performed using the APTIMA HPV Assay ([employer] This assay detects E6/E7 viral messenger RNA (mRNA) from 14 high-risk HPV types (16,18,31,33,35,39,45,51,52,56,58,59,66,68). The analytical performance characteristics of this assay have been determined by [employer]. The modifications have not been cleared or approved by the FDA. This assay has been validated pursuant to the CLIA regulations and is used for clinical purposes. THIS TEST WAS PERFORMED AT: [facility] [address] [place] [address] [address] [place], [place] ??[id number] MARGARITA MEDINA MD 03/15/2020 11:5 6 AM EST Jessee Nascimento MD HISTORICAL/NON ORDERABLE LABS Fi nal Result [facility] [place] [address], from Last 3 Months or Most Recently Relevant to Health Maintenance Insurance [facility] PENITENTIARY OPTIONS (O D-SNP) [facility] PENITENTIARY OPTIONS (O D-SNP) [facility] ST[facility]ULT [address] [place] [id number] Care Teams Senior Energy Market Coordinator Relationship Specialty Start Date End Date Antonia Cardozo MD [address] [place] [phone] PCP - General Family Medicine 06/08/22
--- OUTSIDE RECORDS SUMMARY | 2024-06-16 14:10 | XMS_ITS | Encounter Summary ---
Author Organization [employer] Address [address] 7[address] [place] [address] Care Team Providers Care Mammography Technician Name Role Phone Antonia Cardozo MD Primary Care Provider [phone] Encounter Details Date Type Department Care Team (Late st Contact Info) Description 04/04/2023 Telephone [facility] [address] [place] [address] Valorie Michaud, DHARMESHS [address] [place] [address] Social History Tobacco Use Types Packs/Day Years [...] Description 06/23/2024 9:30 AM EDT Clinical Support [facility] [address] [place] [address] documented as of this encounter Visit Diagnoses Not on filedocumented in this encounter Additional Health Concerns Assessment Noted Time PHQ-9 Depression Total Score: 0 07/05/19 10:11 AM EDT documented as of this encounter Care Teams Mammography Technician Relationship Specialty Start Date End Date Antonia Cardozo MD [address] [place] [address] PCP - General Family Medicine 06/08/22 documented as of this encounter
--- OUTSIDE RECORDS SUMMARY | 2024-06-16 14:10 | XMS_ITS | Encounter Summary ---
Author Organization [employer] Address [address] [place] [address] Care Team Providers Care Meat Smoker Name Role Phone Antonia Cardozo MD Primary Care Provider [phone] Reason for Visit * Reason Comments Med Refill Encounter Details Date Type Department Care Team ([facility] st Contact Info) Description 10/26/2023 Refill [facility] [address] [place], [place] [phone] Adam Wynn DDS [address] [place] [address] Social History Tobacco Use Types Packs/Day Years [...] Description 06/23/2024 9:30 AM EDT Clinical Support [facility] [address] [place] [address] documented as of this encounter Visit Diagnoses Not on filedocumented in this encounter Additional Health Concerns Assessment Noted Time PHQ-9 Depression Total Score: 0 09/21/19 9:49 AM EDT documented as of this encounter Care Teams Meat Smoker Relationship Specialty Start Date End Date Antonia Cardozo MD [address] [place] [address] PCP - General Family Medicine 06/08/22 documented as of this encounter
== END 2024-06-16 12:22 | disposition home or self-care (01) ==
LOC: HO.HGI 11:49
PROVIDERS: PCP Family Medicine; Visit Provider Internal Medicine Gastroenterology
DX: K57.30 Diverticulosis of large intestine without perforation or abscess without bleeding (principal)
CPT/HCPCS: 99213

== ENCOUNTER → 2024-06-16 11:48 | Outpatient (BNVA) | payer OTHER, SELFPAY | PROVIDERS: PCP Family Medicine; Visit Provider Internal Medicine Gastroenterology | DX: K57.30 Diverticulosis of large intestine without perforation or abscess without bleeding (principal) | CPT/HCPCS: 99212 ==

== ENCOUNTER 2024-08-25 14:00 | Outpatient (REF) | payer OTHER, SELFPAY ==
--- OUTSIDE RECORDS SUMMARY | 2024-08-25 14:29 | XMS_ITS | Patient Health Record ---
Demographics Address [address] [place] [address] Mobile Preferred Language Unknown Marital Status unmarried Sabianism Affiliation Unknown Race Unknown Ethnic Group or Author Organization [facility] Address [address] [place] [address] Care Team Providers Care Computer Information Science Professor Name Role Phone Antonio Uriarte MD, Gabino Primary Care Provide Sanjay Miranda Jr Unavailable Allergies Allergen (clinical drug ingredient) Drug/Non Drug Allergy documented on EMR Reaction Allergy Type Onset Date Status acetaminophen / oxycodone Percocet (uncoded) Unknown Allergy Active Reason For Referral No Information Medications Medication SIG (Take, Route, Fr equency, Duration) Notes Start Date End Date Status Anusol-HC 25 MG 1 suppository Rectal Twice a day as directed for 14 day(s) 04/26/2011 Active Levoxyl Active Colace Active Gabapentin Active CeleBREX Active PriLOSEC 02/20/2024 02/20/2024 Active Social History Tobacco Use: Social History Observation Description Date Details (start date - stop date) Never Smoker NA - NA Tobacco Use/Smoking Question Answer Notes Patient is a nonsmoker Problems Problem Type SNOMED Code ICD Code Onset Dates Problem Status W/U Status Risk Notes Problem Internal hemorrhoids (94847896) Internal hemorrhoids with other complication (455.2) Active confirmed Plan Of Treatment No Information Insurance Providers Payer Name Payer Address Payer Phone Subscriber Number Group Number Insured Name Patient Relationship to Insured Coverage Start Date Coverage End Date [facility] [employer] [facility] [address] [address] [place], [place] [id number] BEN BEAR Self - patient is the insured
--- OUTSIDE RECORDS SUMMARY | 2024-08-25 14:29 | XMS_ITS | Encounter Summary ---
Author Organization [employer] Address [address] [facility] 7[address] [place] [address] Care Team Providers Care Front Office Manager Name Role Phone Antonia Cardozo MD Primary Care Provider [phone] Reason for Visit * Reason Onset Date Comments ER Follow-up 05/30/2024 Transition Of Care (Tcm) 05/30/2024 Encounter Details Date Type Department Care Team ([facility] st Contact Info) Description 05/30/2024 Telephone [facility] [address] [place] [address] Antonia Cardozo MD [address] [place] [address] ER Follow-up; Transition Of Care (Tcm) Social [...] Please assist with obtaining discharge summary for [facility] ED visit on 05/28/24 for provider review priorto upcoming appointment. Future Appointments Date Time Provider Department Center 06/05/2024 2:30 PM Day Lala MD MEDICINE [facility] * Telephone Encounter - Alexandrea Colmenares RN - 05/30/2024 4:22 PM EDT Hospital Discharges and Admission for [facility] Type of Visit: Emergency Department Date of Admission/Visit: 05/28/24 Facility: [facility] Diagnosis: Fall, Strain to right hand, contusion [...] when attempted to break fall. Pt states [facility] performed xrays and ruled out fractures. Instructed oTC tylenol/motrin and icecompression. PCP follow up if pain not improved. Per pt pain still the same. No large bruising. Mild swelling. Pt having mild effect from OTC meds. Having mild swelling of knee, still pain with ambulation. Advised PCP Out of office. Agrees to team provider follow up next week. Reviewed [facility] operating hours and that wait times vary. Reviewed to call in for Nurse Telephone Triage Service over weekend should sx change or new sx develop. Reviewed isntED contact as [employer] member. Reviewed home care advise, ER precautions and reasons to call back. Pt agrees. The full discharge summary is has been requested from [facility] Review Flowsheet [facility] Transition of Care Documentation Type of Visit Date of Admission/Visit Facility Diagnosis Disposition 05/30/2024 4:00 PM Emergency Department 05/28/2024 [facility] Fall, Strain to right hand, contusion left knee Discharged Home Recent Visits Date Type Provider Dept 04/30/24 Office Visit Reno Desir CNP [facility] 04/09/24 Office Visit Antonia Cardozo MD [facility] 04/02/24 Office Visit Reno Desir CNP [facility] 02/06/24 Office Visit Elzbieta Cooney NP [facility] 12/24/23 Office Visit Antonia Cardozo MD [facility] 10/30/23 Office Visit Day Navarro MD [facility] 09/21/23 Office Visit Peyman Carter MD [facility] 06/20/23 Office Visit Antonia Cardozo MD [facility] Showing recent visits within past [...] ED visit on : Date: 05/28 Hospital: [facility] Seen for: Fall Symptomatic Yes *if yes message should go to Triage Patient advised will forward to team nurse for follow up [phone] eritrean documented in this encounter Plan of Treatment Upcoming Encounters Date Type Department Care Team (Late st Contact Info) Description 09/17/2024 3:30 PM EDT Office Visit [facility] [address] [place], [place] [phone] Tabitha Gomez, OD [address] [place] [address] 10/17/2024 3:15 PM EDT Office Visit [facility] [address] [place] [address] Tessy Arango MD [address] [place] [address] documented as of this encounter Visit Diagnoses Not on filedocumented in this encounter Additional Health Concerns Assessment Noted Time PHQ-9 Depression Total Score: 0 09/21/19 24 9:49 AM EDT documented as of this encounter Care Teams Front Office Manager Relationship Specialty Start Date End Date Antonia Cardozo MD [address] [place] [address] PCP - General Family Medicine 06/08/22 documented as of this encounter
== END 2024-08-25 14:01 | disposition home or self-care (01) ==
LOC: HO.MAMMO 14:00
PROVIDERS: PCP Family Medicine; Visit Provider Family Medicine
DX: Z12.31 Encounter for screening mammogram for malignant neoplasm of breast (principal)
CPT/HCPCS: 77063; 77067

== ENCOUNTER → 2024-08-25 14:15 | Outpatient (BNV) | payer OTHER, SELFPAY | PROVIDERS: PCP Family Medicine; Visit Provider Internal Medicine | DX: Z12.31 Encounter for screening mammogram for malignant neoplasm of breast (principal) | CPT/HCPCS: 77063; 77067 ==

== ENCOUNTER 2024-09-10 18:45 | Emergency (ER) | payer OTHER, SELFPAY ==
--- NOTE | ~2024-09-10 | XR_ITS ---
CLINICAL HISTORY: pain after fall 4 view right knee Comparison: None provided Findings: Osteopenia. No acute fracture. 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 Probable joint effusion. No radiopaque foreign body. Anterior soft tissue swelling. IMPRESSION: Chronic changes without acute fracture. This document has been electronically signed by: Aj Nicole MD on 09/10/2024 20:15:28
--- NOTE | ~2024-09-10 | XR_ITS ---
CLINICAL HISTORY: pain after fall 4 view, chest and left ribs Comparison: CR/SR - XR CHEST 1V - 01/15/24 09:49 EST Findings: No fractures or dislocations. The lungs are unremarkable. Prominent cardiac silhouette. IMPRESSION: No acute rib fractures. This document has been electronically signed by: Aj Nicole MD on 09/10/2024 20:13:01
--- NOTE | ~2024-09-10 | XR_ITS ---
CLINICAL HISTORY: great toe pain after fall 3 view left foot Comparison: None provided Findings: Bipartite medial sesamoid bone. No acute fracture. Osteophytes along the dorsum of the foot. No radiopaque foreign body. Mildly diffuse soft tissue swelling. Calcaneal spurring. IMPRESSION: Chronic changes without acute fracture. This document has been electronically signed by: Aj Nicole MD on 09/10/2024 20:14:49
[2024-09-10 18:54] VITALS: BP 140/90; PULSE 93; RESP 18; TEMP 36.6; O2SAT 98; BMI 36.0
--- NOTE | 2024-09-10 18:54 | ED.GENADULT ---
HPI - General Adult General Chief complaint: Fall Stated complaint: right knee; left first toe; upper extremity injury Time Seen by Provider: 09/10/24 21:37 Source: patient and family Mode of arrival: ambulatory Limitations: no limitations History of Present Illness ED Provider: HPI narrative: Patient apparently tripped earlier and fell landed her left rib complaining of rib pain knee pain in the left foot pain patient is able to ambulate otherwise no loss of consciousness no head injury Related Data Home Medications ?Medication ?Instructions ?Recorded ?Confirmed loratadine 10 mg tablet (Allergy 10 mg PO DAILY 09/24/20 05/02/24 Relief (loratadine)) calcium 600 mg (as 1 tab PO DAILY 07/13/21 12/20/22 carbonate)-vitamin D3 20 mcg (800 unit) tablet atorvastatin 80 mg tablet 80 mg PO DAILY 03/31/22 05/02/24 hydroxyzine HCl 25 mg tablet 25 mg PO DAILY PRN anxiety 03/31/22 05/02/24 cyclobenzaprine 10 mg tablet 10 mg PO BEDTIME 02/15/24 05/02/24 levothyroxine 112 mcg tablet 112 mcg PO DAILY 02/15/24 05/02/24 Previous Rx's ?Medication ?Instructions ?Recorded menthol 0.44 %-zinc oxide 20.6 % 1 appl topical BID PRN skin 08/01/21 topical ointment (Calmoseptine) irritation #113 grams gabapentin 100 mg capsule 100 mg PO TID #90 caps 11/14/21 ibuprofen 400 mg tablet 400 mg PO TID PRN pain #90 tabs 03/31/22 hydrocortisone 2.5 % topical cream 1 appl [place] BEDTIME PRN hemorrhoids 12/20/22 with perineal applicator #30 grams (Proctosol HC) polyethylene glycol 3350 17 17 g PO DAILY #510 grams 12/20/22 gram/dose oral powder (Miralax) calcium polycarbophil 625 mg 1,250 mg (2 x 625 mg) PO DAILY #60 03/13/23 tablet (Fiber-Lax) tabs ondansetron 4 mg disintegrating 4 mg PO Q8H PRN nausea and 02/15/24 tablet vomiting #5 tabs sodium,potassium,mag sulfates 17.5 See Rx Instructions PO .COMPLEX 02/15/24 gram-3.13 gram-1.6 gram oral soln #354 mL (Suprep Bowel Prep Kit) docusate sodium 100 mg capsule 100 mg PO BID PRN constipation #60 04/21/24 ea Linzess 145 mcg capsule 145 mcg PO DAILY #30 caps 06/16/24 (linaclotide) pantoprazole 40 mg tablet,delayed 40 mg PO DAILY #60 tabs 06/16/24 release acetaminophen 500 mg tablet 500 mg PO Q6H PRN pain #20 tabs 09/10/24 (Tylenol Extra Strength) tramadol 50 mg tablet 50 mg PO Q6H PRN pain #20 tabs 09/10/24 Allergies Allergy/AdvReac Type Severity Reaction Status Date / Time oxycodone (From Percocet) Allergy Mild ABDOMINAL Verified 09/10/24 18:57 PAIN amlodipine (From NORVASC) AdvReac Severe STOMACH Verified 09/10/24 18:57 UPSET/ANXIETY Review of Systems Review of Systems: Yes all other systems are reviewed and are negative PMFSH Past Medical History Medical History Renal cyst Obesity due to excess calories Osteopenia 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 Chronic constipation Anxiety Hypothyroid Vitamin D deficiency Surgical History Hx of tubal ligation History of carpal tunnel release Hx of eye surgery Hx of dilation and curettage Hx of repair of right rotator cuff Hx of repair of left rotator cuff Hx of colonoscopy Hx of esophagogastroduodenoscopy Hx of cataract removal with insertion of prosthetic lens Hx of section Family History Family History Father Pulmonary edema without heart failure COPD (chronic obstructive pulmonary disease) Mother CVD (cardiovascular disease) Diabetes Sudden cardiac Sister Diabetes Schizo-affective schizophrenia Brother Throat cancer Epilepsy Social History Social History Household Members Other:: son Housing: Apartment Are you a primary career development manager to a significant other at home: No Alcohol intake: never Patient Tobacco Use Status: Never used Tobacco Second Hand Smoke Exposure: No Advance Directives: No Advance Directives Information Provided: No Do you have a plan to hurt others: No Plan Current occupational status: disabled Sexual orientation: Straight/Heterosexual Gender identity: Female Physical Exam ED Vital Signs: BMI result Body Mass Index 36.0 Appearance: Alert. Oriented X3. No acute distress. Eyes: PERRLA, No Nystagmus ENT: Pharynx normal. Oral Mucosa moist Neck: Normal inspection. Neck supple. CVS: Normal heart rate and rhythm. Pulses normal. Respiratory: No respiratory distress. Equal air entry bilateral, no wheezing/rales/rhonchi diffuse tenderness left lower ribs Abdomen: Soft and nontender. Bowel sounds are present, no mass palpable, no CVA tenderness Skin: Skin warm and dry. Normal skin color. Normal skin turgor. Extremities: No lower extremity edema. No calf tenderness mild tenderness right knee without significant effusion Neuro: Oriented X 3. No motor deficit. No sensory deficit.No cerebellar signs , cranial nerves II-XII intact Course Course Course Narrative: This is a rapid medical exam performed by Tess Serrano NP: Additional HPI, ROS, PE not included below will be deferred to primary provider. Patient is a 64-year-old Ecuadorean speaking female presenting with complaint of left foot pain, right knee pain and left rib pain after a fall earlier today. States she tripped, did not strike head, not anticoagulated. Plan: imaging Medications Administered Discontinued Medications Generic Name Dose Route Start Last Admin Trade Name William PRN Reason Stop Dose Admin Acetaminophen 650 mg 09/10/24 22:22 09/10/24 22:34 Acetaminophen 325 Mg Tablet PO 09/10/24 22:23 650 mg ONCE ONE Administration Tramadol HCl 50 mg 09/10/24 22:22 09/10/24 22:33 Tramadol Hcl 50 Mg Tablet PO 09/10/24 22:23 50 mg ONCE ONE Administration Procedures FAST Exam FAST Exam 1: Fluid in Morison's pouch: No Fluid in [place]: No Fluid around bladder, Transverse view: No Fluid around bladder, Sagittal view: No Fluid in Pericardial Sac: No Gross Wall Motion Abnormality: No Study normal for this patient: Yes Images saved for further review: No Medical Decision Making Medical Decision Making [facility] Narrative: Patient is status post mechanical fall x-ray of the ribs foot in the knee x-ray negative fast test was negative patient is not in any distress ambulatory taking p.o. fluids will discharge patient home Independent Interpretation I performed an independent interpretation of an: Plain X-Ray Radiology Impression Discussion of test interpretation with radiology: I have reviewed the radiologist's reading. Discharge Plan Discharge Clinical Impression: Contusion of knee, right, Contusion of rib on left side Patient Disposition: Home, Self-Care Instructions: Contusion in Adults (ED) Additional Instructions: Apply Robert wrap to the right knee for support Tylenol/tramadol for pain Follow up with your PCP as needed Prescriptions: New tramadol 50 mg tablet 50 mg PO Q6H PRN (Reason: pain) Qty: 20 0RF acetaminophen [Tylenol Extra Strength] 500 mg tablet 500 mg PO Q6H PRN (Reason: pain) Qty: 20 0RF No Action menthol-zinc oxide [Calmoseptine] 0.44-20.6 % ointment 1 appl topical BID PRN (Reason: skin irritation) Qty: 113 1RF gabapentin 100 mg capsule 100 mg PO TID Qty: 90 3RF calcium polycarbophil [Fiber-Lax] 625 mg tablet 1,250 mg PO DAILY Qty: 60 3RF docusate sodium 100 mg capsule 100 mg PO BID PRN (Reason: constipation) Qty: 60 4RF loratadine [Allergy Relief (loratadine)] 10 mg tablet 10 mg PO DAILY calcium carbonate-vitamin D3 600 mg-20 mcg (800 unit) tablet 1 tab PO DAILY atorvastatin 80 mg tablet 80 mg PO DAILY hydroxyzine HCl 25 mg tablet 25 mg PO DAILY PRN (Reason: anxiety) ibuprofen 400 mg tablet 400 mg PO TID PRN (Reason: pain) Qty: 90 3RF polyethylene glycol 3350 [Miralax] 17 gram/dose powder 17 g PO DAILY Qty: 510 6RF hydrocortisone [Proctosol HC] 2.5 % cream with perineal applicator 1 appl [place] BEDTIME PRN (Reason: hemorrhoids) Qty: 30 3RF cyclobenzaprine 10 mg tablet 10 mg PO BEDTIME levothyroxine 112 mcg tablet 112 mcg PO DAILY ondansetron 4 mg tablet,disintegrating 4 mg PO Q8H PRN (Reason: nausea and vomiting) Qty: 5 0RF Rx Instructions: to take for colon prep sodium,potassium,mag sulfates [Suprep Bowel Prep Kit] 17.5-3.13-1.6 gram recon soln See Rx Instructions PO .COMPLEX Qty: 354 0RF Rx Instructions: DILUTE; drink 1/2 at 6-8 pm and half at 11 PM- 1AM Linzess 145 mcg capsule 145 mcg PO DAILY Qty: 30 4RF pantoprazole 40 mg tablet,delayed release (DR/EC) 40 mg PO DAILY Qty: 60 3RF Interventions: ED Discharge Assessment Last Done: 09/10/24 22:37 Discharge Date/Time: 09/10/24 22:39 Print Language: Ecuadorean
[2024-09-10 20:47] VITALS: BP 140/92; PULSE 88; RESP 18; TEMP 36.3; O2SAT 98
[2024-09-10 22:37] VITALS: BP 140/92; PULSE 88; RESP 18; TEMP 36.3; O2SAT 98
== END 2024-09-10 22:39 | disposition home or self-care (01) ==
PROVIDERS: Emergency Provider Internal Medicine
DX: S80.01XA Contusion of right knee, initial encounter (principal); S20.212A Contusion of left front wall of thorax, initial encounter; M25.561 Pain in right knee; X58.XXXA Exposure to other specified factors, initial encounter; R07.89 Other chest pain; Y93.9 Activity, unspecified; Y92.9 Unspecified place or not applicable; Y99.2 Volunteer activity; Z79.899 Other long term (current) drug therapy
CPT/HCPCS: 71101; 73564; 73630; 99283

== ENCOUNTER → 2024-09-10 18:55 | Outpatient (BNV) | payer OTHER, SELFPAY | PROVIDERS: Visit Provider Radiology Diagnostic Radiology | DX: R07.81 Pleurodynia (principal); M25.561 Pain in right knee; M79.672 Pain in left foot; W19.XXXA Unspecified fall, initial encounter | CPT/HCPCS: 71101; 73564; 73630 ==

== ENCOUNTER 2024-10-15 08:45 | Outpatient (REF) | payer OTHER, SELFPAY ==
--- NOTE | ~2024-10-15 | US_ITS ---
CLINICAL HISTORY: N20.0 - Calculus of kidney US Renal Comparison: US/FL/SR - US KIDNEY BILATERAL - 09/20/23 10:15 EDT Findings: Right kidney normal size and echotexture, 10.3 cm length. Stable complex benign cysts, the largest measuring up to 1.4 cm within the upper pole. Left kidney normal size and echotexture, 10.5 cm length. Stable minimally complex 12 mm midpole cyst. No hydronephrosis of either kidney. Normal color Doppler. IMPRESSION: No acute process. Benign bilateral cysts. No current collecting system calculus or obstructive uropathy. This document has been electronically signed by: Osmin Dunlap MD on 10/15/2024 11:36:12
--- OUTSIDE RECORDS SUMMARY | 2024-10-15 09:12 | XMS_ITS | Patient Health Record ---
Demographics Address [address] [place] [address] Mobile Preferred Language Unknown Marital Status unmarried Judaism Affiliation Unknown Race Unknown Ethnic Group or Author Organization [facility] Address [address] [place] [address] Care Team Providers Care Knit Goods Washer Name Role Phone Antonio Uriarte MD, Gabino Primary Care Provide Sanjay Miranda Jr Unavailable [phone] Allergies Allergen (clinical drug ingredient) Drug/Non Drug [...] W/U Status Risk Notes Problem Internal hemorrhoids (90145532) Internal hemorrhoids with other complication (455.2) Active confirmed Plan Of Treatment No Information Insurance Providers Payer Name Payer Address Payer Phone Subscriber Number Group Number Insured Name Patient Relationship to Insured Coverage Start Date Coverage End Date [facility] [employer] [facility] [address] [address] [place], [place] [id number] BEN BEAR Self - patient is the insured
== END 2024-10-15 08:46 | disposition home or self-care (01) ==
LOC: HO.US 08:45
PROVIDERS: PCP Family Medicine; Visit Provider Nurse Practitioner Family
DX: N20.0 Calculus of kidney (principal)
CPT/HCPCS: 76775

== ENCOUNTER → 2024-10-15 08:47 | Outpatient (BNV) | payer OTHER, SELFPAY | PROVIDERS: PCP Family Medicine; Visit Provider Radiology Vascular & Interventional Radiology | DX: N28.1 Cyst of kidney, acquired (principal) | CPT/HCPCS: 76775 ==

== ENCOUNTER 2024-10-30 10:27 | Outpatient (REF) | payer OTHER, SELFPAY ==
--- OUTSIDE RECORDS SUMMARY | 2024-10-30 15:09 | XMS_ITS | Patient Health Record ---
Demographics Address [address] [place] [address] Mobile Preferred Language Unknown Marital Status unmarried Protestant Affiliation Unknown Race Unknown Ethnic Group or Author Organization [facility] Address [address] [place] [address] Care Team Providers Care Encapsulator Name Role Phone Antonio Uriarte MD, Gabino [...] W/U Status Risk Notes Problem Internal hemorrhoids ([id number]) Internal hemorrhoids with other complication (455.2) Active confirmed Plan Of Treatment No Information Insurance Providers Payer Name Payer Address Payer Phone Subscriber Number Group Number Insured Name Patient Relationship to Insured Coverage Start Date Coverage End Date [facility] [employer] [facility] [address] [address] [place], [place] [id number] BEN BEAR Self - patient is the insured
== END 2024-10-30 10:28 | disposition home or self-care (01) ==
LOC: HO.LAB 10:27
PROVIDERS: PCP Family Medicine; Visit Provider Nurse Practitioner Family
DX: R31.29 Other microscopic hematuria (principal)
CPT/HCPCS: 81003; 88112; 99212

== ENCOUNTER 2024-10-30 10:27 | Outpatient (AMB) | payer OTHER, SELFPAY ==
--- NOTE | 2024-10-30 10:33 | A.OFFVIS_ITS ---
Intake Visit Reasons: 1y/US Intake Note: Patient is present for 1Y/US Urology Medication:NONE Antibiotic Allergy:NONE Blood Thinner:NONE Sack Repairer Required: No Sack Repairer Services: Sack Repairer Present Sack Repairer Name: Jovon Weaver Allergies oxycodone (From Percocet) Allergy (Mild, Verified 10/30/24 10:51) ABDOMINAL PAIN amlodipine (From NORVASC) Adverse Reaction (Severe, Verified 10/30/24 10:51) STOMACH UPSET/ANXIETY Medication List - Last Reconciled 10/30/24 by BETI Salomon atorvastatin 80 mg PO DAILY calcium polycarbophil (Fiber-Lax) 1,250 mg (2 x 625 mg) PO DAILY cyclobenzaprine 10 mg PO BEDTIME hydrocortisone 2.5% (Proctosol HC) 1 appl [place] BEDTIME PRN Linzess (linaclotide) 145 mcg PO DAILY NS loratadine (Allergy Relief (loratadine)) 10 mg PO DAILY menthol-zinc oxide 0.44-20.6 % (Calmoseptine) 1 appl topical BID PRN ondansetron 4 mg PO Q8H PRN pantoprazole 40 mg PO DAILY polyethylene glycol 3350 (Miralax) 17 grams PO DAILY sodium,potassium,mag sulfates 17.5-3.13-1.6 gram (Suprep Bowel Prep Kit) DILUTE; drink 1/2 at 6-8 pm and half at 11 PM- 1AM tramadol 50 mg PO Q6H PRN HPI Comments Details: Trina is a pleasant 64-year-old Bengali-speaking female patient of Dr. Cardozo. She has a past medical history of anxiety, chronic constipation, hypothyroidism, osteopenia, vitamin-D deficiency, and bilateral renal cysts. She presents to the office today for follow-up of her renal cysts. Recent renal imaging results reviewed with the patient today. 10/13 bilateral kidneys are normal in size and echotexture. Stable complex benign bilateral cysts. No current collecting system calculus or obstructive uropathy. No acute process per radiology report. In discussion with the patient today she reports to be doing and feeling well. She denies having had any bothersome urinary issues or concerns since her last office visit here. In office urinalysis results reviewed with the patient today. 3+ microscopic hematuria. Previous urine cytologies: 09/09 & 11/12 Negative for high-grade urothelial carcinoma. We did discussed at length potential causes of microscopic hematuria. She denies any previous history of nicotine dependence and or workplace chemical ex posure. We did discussed further interventions and risks and benefits of these interventions. We will continue with surveillance monitoring at this time. When asked she denies urinary urgency, urinary frequency, incontinence, nocturia, hematuria, dysuria, foul smelling urine, changes to urinary stream, flank pain, fever, and or chills. We discussed at length potential causes of renal cysts as well as microscopic hematuria. She otherwise offers no issues or concerns at this time. 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 Chronic constipation Anxiety Hypothyroid Vitamin D deficiency Surgical History Hx of tubal ligation History of carpal tunnel release Hx of eye surgery Hx of dilation and curettage Hx of repair of right rotator cuff Hx of repair of left rotator cuff Hx of colonoscopy Hx of esophagogastroduodenoscopy Hx of cataract removal with insertion of prosthetic lens Hx of section Family History Father Pulmonary edema without heart failure COPD (chronic obstructive pulmonary disease) Mother CVD (cardiovascular disease) Diabetes Sudden cardiac Sister Diabetes Schizo-affective schizophrenia Brother Throat cancer Epilepsy Social History Household Members Other:: son Housing: Apartment Are you a primary career services officer to a significant other at home: No Alcohol intake: never Patient Tobacco Use Status: Never used Tobacco Second Hand Smoke Exposure: No Current occupational status: disabled Sexual orientation: Straight/Heterosexual Gender identity: Female Female Reproductive History Menstrual Age of Menarche: 12 Review of Systems Eyes Reports no additional complaints ENT Reports no additional complaints Card Reports no additional complaints Resp Reports no additional complaints GI Reports as per HPI Reports as per HPI Musc Reports as per HPI Neuro Reports no additional complaints Psych Reports as per HPI Endo Reports no additional complaints Ace/Lymph Reports no additional complaints Aller/Immun Reports no additional complaints Physical Exam Const General: cooperative, healthy appearing, comfortable, no acute distress, well developed, alert and awake Orientation/consciousness: patient oriented x3 Limitations: no limitations HEENT Head: Yes normal to inspection, Yes normocephalic and Yes atraumatic Ears: hearing grossly normal bilaterally Eyes General: appearance normal, both eyes and all related structures Neck Neck: Yes normal visual inspection and Yes trachea midline Chest Chest palpation & inspection: normal inspection of the chest Resp Effort & Inspection: normal respiratory effort and able to speak in complete sentences Cardio Rate: regular rate GI Inspection: Yes normal to inspection General: Yes no CVA tenderness Back/Spine/Pelvis Back: no CVA tenderness Skin General skin exam: no rashes or lesions noted Neuro General: patient oriented x3 Extrem General: Yes normal to inspection Psych Appearance: grossly normal and well kempt Mental Status: mental status grossly normal Speech and movement: Normal speech and movement present and Clear speech present Affect: normal affect Attitude: cooperative Thought process: Normal thought process present Thought content: Normal thought content present Insight: Fair insight present (Psych) Judgement: Fair judgement present (Psych) Results AMB Urinalysis, Automated UA Leukoctes 125 Jamie/uL Last Edit by MATHEUS Garcia on 10/30/24 10:51 UA Nitrite Negative Last Edit by Nazanin Becker CCM on 10/30/24 10:51 UA Urobilinogen 0.2 mg/dL Last Edit by MATHEUS Garcia on 10/30/24 10:5 1 UA Protein 0 mg/dL Last Edit by Nazanin Becker CCM on 10/30/24 10:51 UA pH 6.0 Last Edit by Nazanin Becker CCM on 10/30/24 10:51 UA Blood 200 Brett/uL Last Edit by Nazanin Becker CCM on 10/30/24 10:51 UA Specific [place] 1.015 Last Edit by MATHEUS Garcia on 10/30/24 10: 51 UA Ketone Negative Last Edit by MATHEUS Garcia on 10/30/24 10:51 UA Bilirubin 0 mg/dL Last Edit by Nazanin Becker CCM on 10/30/24 10:51 UA Glucose 0 mg/dL Last Edit by Nazanin Becker [facility] on 10/30/24 10:51 Results Reviewed Results Reviewed: Laboratory Last Values Urine pH (Auto) 6.0 10/30/24 10:50 Specific [place] (Auto) 1.015 10/30/24 10:50 Urine Protein (Auto) 0 mg/dL 10/30/24 10:50 Glucose (UA)(Auto) 0 mg/dL 10/30/24 10:50 Urine Ketones (Auto) Negative 10/30/24 10:50 Urine Blood (Auto) 200 Brett/uL 10/30/24 10:50 Urine Nitrite (Auto) Negative 10/30/24 10:50 Urine Bilirubin (Auto) 0 mg/dL 10/30/24 10:50 Urine Urobilinogen (Auto) 0.2 mg/dL 10/30/24 10:50 Leukocyte Esterase (Auto) 125 Jamie/uL 10/30/24 10:50 Date of Service: 10/15/24 Procedure(s): US renal BI Findings: Right kidney normal size and echotexture, 10.3 cm length. Stable complex benign cysts, the largest measuring up to 1.4 cm within the upper pole. Left kidney normal size and echotexture, 10.5 cm length. Stable minimally complex 12 mm midpole cyst. No hydronephrosis of either kidney. Normal color Doppler. IMPRESSION: No acute process. Benign bilateral cysts. No current collecting system calculus or obstructive uropathy. Assessment & Plan Assessment & Plan (1) Renal cyst: Code(s): N28.1 - Cyst of kidney, acquired Category: Medical (2) Microscopic hematuria: Code(s): R31.29 - Other microscopic hematuria Category: Medical Plan In office urinalysis results reviewed with the patient today; as noted above; will send for urine cytology. She reports be happy with current voiding parameters. Recent renal imaging results reviewed with the patient today; as noted above. Discussed at length potential causes of renal cysts and microscopic hematuria. Previous urine cytology results reviewed with the patient today. Will continue with surveillance monitoring Discussed, educated, and stressed the importance of adequate hydration in relation to overall health and well-being. Will obtain renal ultrasound in 1 year. Follow-up in 1 year with imaging to be completed prior; or sooner with any issues, concerns, and or questions. Orders: Orders AMB Urinalysis Automated Today Z13.9 - Encounter for screening, unspecified Urine Cytology Today R31.29 - Other microscopic hematuria US retroperitoneal comp 1 Year N28.1 - Cyst of kidney, acquired, R31.29 - Other microscopic hematuria Patient Instructions: The patient had an opportunity to ask questions regarding the treatment plan. All questions were answered. Physical exam, labs, and imaging were discussed and reviewed in detail. As well as risks, benefits, and discussion of treatment choices. No major barriers to understanding were identified. The patient expressed understanding and agreement with the above treatment plan. The patient was made aware they should contact our office by phone for worsening of their current condition, the appearance of new symptoms, or with any questions or concerns. Compliance is encouraged with any medications and follow up testing that is ordered. It is a privilege to be allowed the opportunity to participate in? your urological care.? Again, if you have any questions or concerns If you have any questions or concerns please do not hesitate to contact me. The office is [phone]. This note is constructed using voice recognition software. While every effort has been made to ensure accuracy principal hardware architect errors may have been included. Yours sincerely, BETI Salomon Coding Level of Care Code Est Pt Level 3 (12417) Complex EM visit Add On G2211 Diagnoses Renal cyst N28.1 Microscopic hematuria R31.29
== END 2024-10-30 11:01 | disposition home or self-care (01) ==
LOC: HO.HUSH 10:28
PROVIDERS: PCP Family Medicine; Visit Provider Nurse Practitioner Family
DX: N28.1 Cyst of kidney, acquired (principal); R31.29 Other microscopic hematuria; Z13.9 Encounter for screening, unspecified
CPT/HCPCS: 99213; G2211

== ENCOUNTER 2024-11-10 12:20 | Outpatient (REF) | payer OTHER, SELFPAY | END 2024-11-10 12:21 | disposition home or self-care (01) | LOC: HO.LAB 12:20 | PROVIDERS: PCP Family Medicine; Visit Provider Nurse Practitioner Family | DX: R31.29 Other microscopic hematuria (principal); Z87.440 Personal history of urinary (tract) infections | CPT/HCPCS: 88112 ==

== ENCOUNTER 2024-11-10 13:30 | Outpatient (RCR) | payer OTHER, SELFPAY | END 2024-11-17 10:55 | disposition home or self-care (01) | LOC: HO.OT 13:30 | PROVIDERS: PCP Family Medicine; Visit Provider Family Medicine | DX: M79.641 Pain in right hand (principal) | CPT/HCPCS: 97110; 97140; 97166 ==

== ENCOUNTER 2024-12-15 09:31 | Outpatient (AMB) | payer OTHER, SELFPAY ==
--- NOTE | 2024-12-15 09:33 | MHC.OFFVIS ---
Vital Signs 12/15/24 09:36 Height 5 ft Weight 178 lb 9.191 oz BMI 34.9 BP 123/80 Blood Pressure Location Lt brachial Position Sitting Pulse 85 Intake Visit Reasons: 6 mo f/u Intake Note: Trina presents in the office as a 6 month follow up. CC: states she has been walking a lot. She states that she is trying to do exercises at home and outside. Window Glass Cutter Off Required: Yes Window Glass Cutter Off Name: [id number] Allergies oxycodone (From Percocet) Allergy (Mild, Verified 10/30/24 10:51) ABDOMINAL PAIN amlodipine (From NORVASC) Adverse Reaction (Severe, Verified 10/30/24 10:51) STOMACH UPSET/ANXIETY HPI HPI 6 mo f/u: Details: 64 yr old f here for f/u Had been seeing [facility] for reflux and dysphagia Had EGD 09/24/23 Impression/Findings: gastritis duodenitis esophagitis hiatal hernia Path: chronic active inflammation GEJ active esophagitis chronic inactive duodenitis She also had balloon dilation TSH neg H pylori stool neg in past colonosocopy 2020- poor prep in some areas, moderate diverticulosis INTERIM: she is doing well waliking more and doing exercise she lost 10# with diet and exercise she is taking linaclotide prn still has some dryness in her mouth when she eats dry foods EXAM: GENERAL: The patient is well developed and nontoxic. VITAL SIGNS:see workflow HEENT: Nonicteric sclerae, PERRLA, EOMI. Oropharynx clear. Moist mucous membranes. Conjunctivae appear well perfused. No thyroid mass. CHEST: Chest wall is nontender. HEART: Regular rate and rhythm without murmurs. LUNGS: Clear to auscultation bilaterally. ABDOMEN: Soft, positive bowel sounds, nontender, no organomegaly.no flank tenderness SKIN: No rash, no excessive bruising, petechiae, or purpura. NEUROLOGIC: Cranial nerves II-XII intact without motor/sensory deficit. 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 Chronic constipation Anxiety Hypothyroid Vitamin D deficiency Surgical History Hx of tubal ligation History of carpal tunnel release Hx of eye surgery Hx of dilation and curettage Hx of repair of right rotator cuff Hx of repair of left rotator cuff Hx of colonoscopy Hx of esophagogastroduodenoscopy Hx of cataract removal with insertion of prosthetic lens Hx of section Family History Father Pulmonary edema without heart failure COPD (chronic obstructive pulmonary disease) Mother CVD (cardiovascular disease) Diabetes Sudden cardiac Sister Diabetes Schizo-affective schizophrenia Brother Throat cancer Epilepsy Social History Household Members Other:: son Housing: Apartment Are you a primary neonatal intensive care nurse to a significant other at home: No Alcohol intake: never Patient Tobacco Use Status: Never used Tobacco Second Hand Smoke Exposure: No Current occupational status: disabled Sexual orientation: Straight/Heterosexual Gender identity: Female Female Reproductive History Menstrual Age of Menarche: 12 Physical Exam Vital Signs: BMI result Body Mass Index 34.9 Assessment & Plan Assessment & Plan (1) Encounter for screening colonoscopy: Comment: Screening colonoscopy-extended prep explained -detailed via coin counter and wrapper-as previously Code(s): Z12.11 - Encounter for screening for malignant neoplasm of colon Category: Medical Plan: as above (2) Chronic constipation: Comment: consistent bowel regimen-will cont MiraLax q.h.s. Colace, fiber supplement HFD Avoid straining Code(s): K59.09 - Other constipation Category: Medical Plan: as above Orders: Referrals GI Procedure Notification K59.09 - Other constipation, Z12.11 - Encounter for screening for malignant neoplasm of colon Medications: Discontinued tramadol Discontinued Reason: Patient Completed Course 50 mg PO Q6H PRN 20 tabs 0RF pain Coding Level of Care Code Est Pt Level 3 (34454) Diagnoses Encounter for screening colonoscopy Z12.11 Chronic constipation K59.09
[2024-12-15 09:36] VITALS: BP 123/80; PULSE 85; BMI 34.9
--- OUTSIDE RECORDS SUMMARY | 2024-12-15 10:42 | XMS_ITS | Encounter Summary ---
Author Organization [employer] Address [address] [facility] [address] [place] [address] Care Team Providers Care Chief Embalmer Name Role Phone Antonia Cardozo MD Primary Care Provider [phone] Reason for Visit * Reason Onset Date Comments ER Follow-up 05/30/2024 Transition Of Care (Tcm) 05/30/2024 Encounter Details Date Type Department Care Team ([facility] st Contact Info) Description 05/30/2024 Telephone [facility] MEDICINE [address] [place] [address] Antonia Cardozo MD [address] [place] [address] ER Follow-up; Transition Of Care (Tcm) Social [...] Please assist with obtaining discharge summary for [facility] ED visit on 05/28/24 for provider review priorto upcoming appointment. Future Appointments Date Time Provider Department Center 06/05/2024 2:30 PM Day Lala MD MEDICINE [facility] * Telephone Encounter - Alexandrea Colmenares RN - 05/30/2024 4:22 PM EDT Hospital Discharges and Admission for [facility] Type of Visit: Emergency Department Date of Admission/Visit: 05/28/24 Facility: [facility] Diagnosis: Fall, Strain to right hand, contusion [...] when attempted to break fall. Pt states [facility] performed xrays and ruled out fractures. Instructed oTC tylenol/motrin and icecompression. PCP follow up if pain not improved. Per pt pain still the same. No large bruising. Mild swelling. Pt having mild effect from OTC meds. Having mild swelling of knee, still pain with ambulation. Advised PCP Out of office. Agrees to team provider follow up next week. Reviewed [facility] operating hours and that wait times vary. Reviewed to call in for Nurse Telephone Triage Service over weekend should sx change or new sx develop. Reviewed isntED contact as [facility] member. Reviewed home care advise, ER precautions and reasons to call back. Pt agrees. The full discharge summary is has been requested from [facility] Review Flowsheet [facility] Transition of Care Documentation Type of Visit Date of Admission/Visit Facility Diagnosis Disposition 05/30/2024 4:00 PM Emergency Department 05/28/2024 [facility] Fall, Strain to right hand, contusion left knee Discharged Home Recent Visits Date Type Provider Dept 04/30/24 Office Visit Reno Desir CNP [facility] 04/09/24 Office Visit Antonia Cardozo MD [facility] 04/02/24 Office Visit Reno Desir CNP [facility] 02/06/24 Office Visit Elzbieta Cooney NP [facility] 12/24/23 Office Visit Antonia Cardozo MD [facility] 10/30/23 Office Visit Day Navarro MD [facility] 09/21/23 Office Visit Peyman Carter MD [facility] 06/20/23 Office Visit Antonia Cardozo MD [facility] Showing recent visits within past 365 [...] ED visit on : Date: 05/28 Hospital: [facility] Seen for: Fall Symptomatic Yes *if yes message should go to Triage Patient advised will forward to team nurse for follow up [phone] hebrew documented in this encounter Plan of Treatment Upcoming Encounters Date Type Department Care Team (Late st Contact Info) Description 12/29/2024 9:30 AM EST Office Visit [facility] MEDICINE [address] [place], [place] [phone] Antonia Cardozo MD [address] [place] [address] 01/12/2025 11:00 AM EST Clinical Support [facility] DIABETES/NUTRITION [address] [place] [address] [place] [address] documented as of this encounter Visit Diagnoses Not on filedocumented in this encounter Additional Health Concerns Assessment Noted Time PHQ-9 Depression Total Score: 0 09/21/19 9:49 AM EDT documented as of this encounter Care Teams Chief Embalmer Relationship Specialty Start Date End Date Antonia Cardozo MD [address] [place], [place] [phone] PCP - General Family Medicine 06/08/22 documented as of this encounter
--- OUTSIDE RECORDS SUMMARY | 2024-12-15 10:42 | XMS_ITS | Encounter Summary ---
Author Organization [employer] Address [address] [facility] [address] [place] [address] Care Team Providers Care Felt Hat Mellowing Machine Operator Name Role Phone Antonia Cardozo MD Primary Care Provider [phone] Reason for Visit * Reason Comments Med Refill Encounter Details Date Type Department Care Team ([facility] st Contact Info) Description 10/26/2023 Refill [facility] ADULT DENTAL [address] [place] [address] Adam Wynn DDS [address] [place] [address] Social History Tobacco Use Types Packs/Day Years [...] Description 12/29/2024 9:30 AM EST Office Visit [facility] MEDICINE [address] [place] [address] Antonia Cardozo MD [address] [place] [address] 01/12/2025 11:00 AM EST Clinical Support [facility] DIABETES/NUTRITION [address] [place] [address] [place] [address] documented as of this encounter Visit Diagnoses Not on filedocumented in this encounter Additional Health Concerns Assessment Noted Time PHQ-9 Depression Total Score: 0 09/21/19 9:49 AM EDT documented as of this encounter Care Teams Felt Hat Mellowing Machine Operator Relationship Specialty Start Date End Date Antonia Cardozo MD [address] [place] [id number] PCP - General Family Medicine 06/08/22 documented as of this encounter
--- OUTSIDE RECORDS SUMMARY | 2024-12-15 10:42 | XMS_ITS | Encounter Summary ---
Author Organization [employer] Address [address] [facility] [address] [place] [address] Care Team Providers Care Econometrics Professor Name Role Phone Antonia Cardozo MD Primary Care Provider [phone] Reason for Visit * Reason Onset Date Comments Nurse Triage 09/10/2023 Encounter Details Date Type Department Care Team ([facility] st Contact Info) Description 09/10/[address] [facility] MEDICINE [address] [place], [place] [phone] Antonia Cardozo MD [address] [place] [address] Nurse Triage Social History Tobacco Use Types [...] 09/10/2023 12:47 PM EDT Triage call with [employer] Speech [employer] Pathologist [place] [id number] Pt reports itchiness of skin , widespread, for last week. Pt has had this in the past about the same time of year last year. Pt denies any changes in soaps or detergent. Pt denies any other symptoms,just itchiness. Home care reviewed with Pt. Pt is advised to come to [facility] today or tomorrow morning.Hours 830am - [...] all body. The caller accepted this outcome Belarusian speaker documented in this encounter Plan of Treatment Upcoming Encounters Date Type Department Care Team (Late st Contact Info) Description 12/29/2024 9:30 AM EST Office Visit [facility] MEDICINE [address] [place], [place] [phone] Antonia Cardozo MD [address] [place] [address] 01/12/2025 11:00 AM EST Clinical Support [facility] DIABETES/NUTRITION [address] [place], [place] [phone] Maggy [address] [place], [place] [phone] documented as of this encounter Visit Diagnoses Not on filedocumented in this encounter Additional Health Concerns Assessment Noted Time PHQ-9 Depression Total Score: 0 07/05/19 10:11 AM EDT documented as of this encounter Care Teams Econometrics Professor Relationship Specialty Start Date End Date Antonia Cardozo MD [address] [place] [address] [phone] PCP - General Family Medicine 06/08/22 documented as of this encounter
--- OUTSIDE RECORDS SUMMARY | 2024-12-15 10:42 | XMS_ITS | Clinical Summary ---
Author Organization [employer] Address [address] [place] [address] Care Team Providers Care Fine Unhairer Name Role Phone Antonia Kapoor MD Primary Care Provider [phone] Allergies Active Allergy Reactions Criticality Noted Date Comments Amlodipine High 09/13/2023 Other Reaction(s): STOMACH UPSET/ANXIETY Oxycodone 05/21/2012 Oxycodone-Acetaminophen 02/22/2023 Medications atorvastatin (Lipitor) 80 MG tablet Take 80 mg by mouth in the morning. 03/09/19 23 Active hydrOXYzine HCl (Atarax) 25 MG tablet Take 25 mg by mouth if needed each day. 07/21/19 22 Active Calmoseptine 0.44-20.6 % ointment APPLY TO THE AFFECTED AREA(S) TWICE DAILY NEEDED 08/02/19 22 Active Fiber-Lax 625 MG tablet Take 2 tablets by mouth in the morning. 12/21/19 23 Active docusate sodium (Colace) 100 MG capsule TAKE 2 CAPSULES BY MOUTH EVERY DAY AT BEDTIME 12/21/19 23 Active hydrocortisone (Anusol-HC) 2.5 % rectal cream APPLY 1 APPLICATION RECTALLY DAILY AT BEDTIME NEEDED FOR HEMORRHOIDS 12/21/19 23 Active HM ClearLax 17 GM/SCOOP powder Mix 17g (1 capful) in 8 ounces of water and take by mouth every day 12/21/19 23 Active cyclobenzaprine (Flexeril) 5 MG tabletIndications:Art hralgia of left temporomandibular joint Take 1 tablet (5 mg) by mouth if needed at bedtime for muscle spasms for up to 14 days. 14 tablet 02/06/20 24 Active gabapentin (Neurontin) 100 MG capsule TAKE 1 CAPSULE BY MOUTH THREE TIMES DAILY 90 capsule 03/18/19 25 Active D3 Super Strength 50 MCG (2000 UT) capsule TAKE 1 CAPSULE BY MOUTH EVERY MORNING 90 capsule 3 03/18/19 25 Active Linzess 145 MCG capsule Take 1 capsule by mouth Once per day. 02/19/20 24 Active ondansetron ODT (Zofran-ODT) 4 MG disintegrating tablet DISSOLVE 1 TABLET BY MOUTH EVERY 8 HOURS NEEDED FOR NAUSEA AND VOMITING, TAKE FOR COLONOSCOPY PREPARATION 02/15/20 24 Active acetaminophen (Tylenol Extra Strength) 500 MG tablet Take 1 or 2 tablets by mouth every 8 hours as needed for pain or fever. Maximum Daily dose 6 tabs. 90 tablet 1 04/13/19 25 Active hydroCHLOROthiazide (HYDRODiuril) 25 MG tabletIndications:Anupama juju hypertension Take 1 tablet (25 mg) by mouth Once per day. 30 tablet 11 06/06/19 25 026 Active Blood Pressure Monitoring (Blood Pressure Cuff) miscIndications:Prima ry hypertension 1 each Once daily. 1 each 06/06/19 25 Active Calcium 600/Vitamin D3 600-20 MG-MCG tablet TAKE 1 TABLET BY MOUTH EVERY MORNING 90 tablet 1 06/11/19 25 Active lidocaine (Lidoderm) 5 % patchIndications:Rib pain on left side Apply 1 patch topically Once per day. Remove & discard patch within 12 hours or as directed by MD. 30 patch 1 09/16/19 25 Active Diclofenac Sodium 1 % gelIndications:Rib pain on left side APPLY 2 GRAMS TOPICALLY ONE OR TWO TIMES DAILY NEEDED FOR PAIN 100 g 2 09/16/19 25 Active levothyroxine (Synthroid, Levoxyl) 112 MCG tablet TAKE 1 TABLET BY MOUTH EVERY DAY IN THE MORNING 90 tablet 1 10/02/19 25 Active traMADol (Ultram) 50 MG tablet Take 1 tablet by mouth every 6 (six) hours if needed for pain. 09/12/19 25 Active pantoprazole (ProtoNix) 40 MG EC tablet Take 1 tablet by mouth Once per day. 06/17/19 25 Active betamethasone, augmented, (Diprolene) 0.05 % ointmentIndications:H and eczema Apply topically 2 times daily. 50 g 10/18/19 25 Active Active Problems Problem Noted Date Diagnosed Date Right hand pain 06/05/2024 Assessment & Plan (08/22/2024 9:50 AM EDT): - Patient fell and injured her right hand and the left knee in May 2024 -Patient is requesting a referral to occupational therapy for her hand and physical therapy for her knee. -Fall precaution Primary hypertension 06/05/2024 Assessment & Plan (08/22/2024 9:44 AM EDT): -Goal BP < 130 per ACC/AHA guideline (Treatment threshold >= 130) - Restarted on hctz since May due to elevated BP; patient self-discontinued because her home blood pressure measurements have been normal - Continue working on lifestyle modifications Assessment & Plan (06/06/2024 3:14 PM EDT): [...] allergy) Lichen sclerosus 04/02/2024 Assessment & Plan (08/22/2024 9:52 AM EDT): - continue judicious use of topical steroid - Follow-up with jacket preparer Assessment & Plan (04/13/2024 4:51 PM EST): [...] Plan (12/30/2023 6:10 AM EST): following with [facility]. EGD on 09/24/23, showing gastritis, duodenitis, esophagitis, and hiatal hernia, and Schatzki's ring. Pathology report - active esophagitis, negative H. Pylori. Barium Swallow on 11/28/23 showing esophageal dysmotility Continue treatment per GI Chronic constipation 12/19/2023 Assessment & Plan (08/06/2024 11:59 AM EDT): - following with [facility], last seen in Jan 2024 - continue Linaclotide 145 mcg daily Assessment & Plan (04/13/2024 4:53 PM EST): - following with [facility], last seen in Jan 2024 - continue Linaclotide 145 mcg daily Dental anomaly 12/19/2023 Dental caries 12/19/2023 Diverticulosis of colon 12/19/2023 Dysphagia 12/19/2023 Assessment & Plan (12/30/2023 6:11 AM EST): Following with [facility] GERD and esophageal dysmotility Continue PPI Obesity due to excess calories 12/19/2023 Primary osteoarthritis of left knee 12/19/2023 Assessment & Plan (08/22/2024 9:51 AM EDT): Referred to physical therapy S/P colonoscopy 12/19/2023 Vitamin D deficiency 12/19/2023 Assessment & Plan (08/06/2024 11:59 AM EDT): - continue supplement Assessment & Plan (04/13/2024 4:56 PM EST): [...] GERD (gastroesophageal reflux disease) Assessment & Plan (08/06/2024 11:59 AM EDT): - following with [facility], last seen in Jan 2024 - continue pantoprazole as prescribed - EGD in June 2018, erosive gastritis, positive H. Pylori, s/p eradication treatment with triple therapy - most recent H. Pylori stool antigen was negative. - EGD on 09/24/23 showed gastritis, duodenitis, esophagitis, hiatal hernia, and Schatzki's ring - avoid irritants - follow up as scheduled Assessment & Plan (04/13/2024 4:52 PM EST): - following with [facility], last seen in Jan 2024 - [...] (12/30/2023 6:09 AM EST): - following with [facility], last seen in Dec 2022 - [...] (02/23/2023 4:10 PM EST): - following with [facility], last seen in Dec 2022 - [...] (12/30/2023 6:12 AM EST): - evaluated by [facility] provider, last seen in Oct 2023 [...] History of hypertension 07/02/2022 Assessment & Plan (08/22/2024 9:46 AM EDT): -Goal BP < 130 per ACC/AHA guideline (Treatment threshold >= 130) -stage 1 hypertension range today, most of BP in the clinic has been elevated, but patient reports normal BP at home - Continue working on lifestyle modifications - Continue self-monitoring BP - Previously on medication which was discontinued as it turned out to be normal at home Assessment & Plan (04/13/2024 4:48 PM EST): [...] factor managemt Dyslipidemia 07/02/2022 Assessment & Plan (08/06/2024 12:01 PM EDT): - last lipid profile: 02/06/24 TC 207; TG 88; HDL 53; LDL 137 - current medications atorvastatin 80 mg at bedtime (questionable adherence) - continue working on lifestyle modifications Assessment & Plan (04/13/2024 4:57 PM EST): [...] (04/13/2024 4:57 PM EST): - Followed by N providers, psych, Dr Ortiz - On Gabapentin and hydroxyzine - No recent changes in medications - No SI/HI - Continue current treatment plan Assessment & Plan (07/07/2022 11:58 AM EDT): - Followed by N providers, psych, Dr Ortiz - On Gabapentin and hydroxyzine - No recent changes in medications - No SI/HI - Continue current treatment plan Hemorrhoids 03/21/2012 Assessment & Plan (07/07/2022 11:49 AM EDT): - avoid prolonged sitting - prevent constipation - fiber-rich diet - sitz bath - topical agent prn 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 Assessment & Plan (08/22/2024 9:48 AM EDT): >>ASSESSMENT AND PLAN FOR HYPOTHYROIDISM WRITTEN ON 07/07/2022 11:53 AM BY ANTONIA KAPOOR MD - due to Hashimotos' thyroiditis - previously seen by [facility] - continue levothyroxine 112 mcg daily Assessment & Plan (08/22/2024 9:48 AM EDT): >>ASSESSMENT AND PLAN FOR HYPOTHYROIDISM WRITTEN ON 11/13/2022 9:00 AM BY ANTONIA KAPOOR MD - due to Hashimotos' thyroiditis - previously seen by [facility] - most recent TSH 1.28 on 07/04/22 - continue levothyroxine 112 mcg daily Assessment & Plan (08/22/2024 9:48 AM EDT): >>ASSESSMENT AND PLAN FOR HYPOTHYROIDISM WRITTEN ON 02/23/2023 4:12 PM BY ANTONIA KAPOOR MD - due to Hashimotos' thyroiditis - previously seen by [facility] - most recent TSH 1.28 on 07/04/22 - continue levothyroxine 112 mcg daily Assessment & Plan (08/22/2024 9:48 AM EDT): >>ASSESSMENT AND PLAN FOR HYPOTHYROIDISM WRITTEN ON 06/21/2023 12:07 AM BY MIKE DALTON - due to Hashimotos' thyroiditis - previously seen by [facility] - most recent TSH 0.36 on 06/20/23 - continue levothyroxine 112 mcg daily Assessment & Plan (08/22/2024 9:48 AM EDT): >>ASSESSMENT AND PLAN FOR HYPOTHYROIDISM WRITTEN ON 12/28/2023 3:45 PM BY BRITT HERNÁNDEZ - due to Hashimotos' thyroiditis - previously seen by [facility] - most recent TSH 0.36 on 06/20/23 - continue levothyroxine 112 mcg daily Assessment & Plan (08/22/2024 9:48 AM EDT): - previously seen by [facility] - most recent TSH 0.32 on 02/06/24 - continue levothyroxine 112 mcg daily Assessment & Plan (08/22/2024 9:48 AM EDT): >>ASSESSMENT AND PLAN FOR HYPOTHYROIDISM DUE TO DELMA'S THYROIDITIS WRITTEN ON 04/13/2024 4:51 PM BY ANTONIA KAPOOR MD - due to Hashimotos' thyroiditis - previously seen by [facility] - most recent TSH 0.32 on 02/06/24 - continue levothyroxine 112 mcg daily >>ASSESSMENT AND PLAN FOR HYPOTHYROIDISM WRITTEN ON 04/13/2024 4:51 PM BY ANTONIA KAPOOR MD - due to Hashimotos' thyroiditis - previously seen by [facility] - most recent TSH 0.32 on 02/06/24 - continue levothyroxine 112 mcg daily Resolved [...] Encounters Date Type Department Care Team Description 12/05/2024 3:30 PM EDT Clinical Support [facility] [address] [place] [phone] Dyslipidemia (Primary Dx); Vitamin D deficiency; Class 2 obesity due to excess calories without serious comorbidity with body mass index (BMI) of 36.0 to 36.9 in adult 12/05/2024 Travel 12/05/2024 Telephone [facility] [address] [place] [phone] Antonia Kapoor MD Durable Medical Equipment (DME: Rollator Walker) 12/01/2024 9:00 AM EDT Clinical Support [facility] [address] [place] [phone] Dyslipidemia (Primary Dx); Vitamin D2 deficiency; Class 2 obesity due to excess calories with body mass index (BMI) of 36.0 to 36.9 in adult, unspecified whether serious comorbidity present 12/01/2024 Travel 11/10/2024 10:00 AM EDT Nutrition [facility] [address] [place] [phone] Dyslipidemia; Vitamin D deficiency; Class 2 obesity due to excess calories with body mass index (BMI) of 36.0 to 36.9 in adult, unspecified whether serious comorbidity present 11/10/2024 Orders Only GENERIC EXTERNAL DATA DEPARTMENT Provider, Generic External Data 11/10/2024 Travel 10/30/2024 Orders Only GENERIC EXTERNAL DATA DEPARTMENT Provider, Generic External Data 10/29/2024 Telephone [facility] [address] [place] [phone] Antonia Kapoor MD december recall 10/17/2024 3:15 PM EDT Office Visit [facility] [address] [place] [address] Tessy Arango MD Hand eczema (Primary Dx) 10/17/2024 Travel 10/15/2024 Orders Only [facility] External Provider, [facility] 10/09/2024 Telephone [facility] [address] [place] [address] Antonia Kapoor MD Referral 09/30/2024 Refill [facility] [address] [place], [place] [phone] Antonia Kapoor MD 09/22/2024 9:30 AM EDT Office Visit [facility] [address] [place] [address] Jason, Tabitha, OD Alternating exotropia (Primary Dx) 09/22/2024 Travel 09/17/2024 3:30 PM EDT Office Visit [facility] [address] [place] [address] Jason, Tabitha, OD RPE (retinal pigment epithelium) atrophy (Primary Dx); Diplopia; Alternating exotropia; Pseudophakia; Presbyopia of both eyes 09/17/2024 Travel 09/15/2024 11:00 AM EDT Office Visit [facility] [address] [place] [phone] RosiemElzbieta, NETWORK RELAY TESTER Rib pain on left side (Primary Dx); Recurrent falls while walking 09/15/2024 Travel from Last 3 Months Immunizations Immunization Administration Dates Next Due Influenza Injectable Quadriv [...] Sign Reading Time Taken Comments Blood Pressure 128/70 10/17/2024 3:00 PM EDT Pulse 68 10/17/2024 3:00 PM EDT Temperature 36 C (96.8 F) 10/17/2024 3:00 PM EDT Respiratory Rate 20 10/17/2024 3:00 PM EDT Oxygen Saturation 100% 10/17/2024 3:00 PM EDT Inhaled Oxygen Concentration - - Weight 82.6 kg (182 lb 3.2 oz) 11/13/2024 9:26 A M EDT Height 152.4 cm (5') 11/13/2024 9:26 AM EDT Body Mass Index 35.58 11/13/2024 9:26 AM EDT Plan of Treatment Upcoming Encounters Date Type Department Care Team (Late st Contact Info) Description 12/29/2024 9:30 AM EST Office Visit [facility] [address] [place] [phone] Antonia Kapoor MD [address] [place] [address] 01/12/2025 11:00 AM EST Clinical Support [facility] [address] [place] [address] [place] [address] Health Maintenance Due Date Last Done Comments CT Colonography 1960 Dental Oral Exam 1960 Dental Prophylaxis 1960 Dental X-Ray: Full Mouth 1960 FIT DNA/Cologuard 1960 FOBT 1960 Sigmoidoscopy 1960 Hepatitis C Screening 02/08/1976 Pneumococcal Vaccine: 50+ Years (1 of 1 - PCV) 02/08/2008 FIT 10/29/2021 10/29/2020 Dental X-Ray: Bitewings 04/03/2024 04/02/2023 Depression Screening 09/20/2024 09/21/2023, 09/21/19 SDOH Screening 09/20/2024 09/21/2023 COVID-19 Vaccine ( season) 2024 02/02/2021, 06/21/2020, 05/24/2020 Influenza Vaccine (#1) 2024 , 12/23/2019, 02/06/2019, Additional history exists Alcohol/Substance Use Screening 12/23/2024 12/24/2023 Colonoscopy 08/09/2025 08/09/2020 Colorectal Cancer Screening 08/09/2025 Tobacco Screening 10/12/2025 10/12/2024 Mammogram 08/25/2026 08/25/2024, 03/23, 07/05/2022 Lipid Panel 02/05/2029 02/06/2024, 05/0 02/2023, 07/04/2022, [...] patient's age to complete this topic Meningococcal B Vaccine Aged Out No l onger eligible based on patient's age to complete [...] Procedure Name Priority Date/Time Associated Diagnosis Comments CYTOPATH-CELL ENHANCED Routine 12:24 PM EDT CYTOPATH-CELL ENHANCED Routine 10:30 AM EDT US RENAL COMPLETE Routine 10/15/2024 11: 36 AM EDT OCT, RETINA - OU - BOTH EYES Routine 09/17/2024 3:30 PM EDT RPE (retinal pigment epithelium) atrophy BI MAMMOGRAM SCREENING TOMOSYNTHESIS BILATERAL Routine 08/25/2024 2:02 PM EDT LIPID PANEL WITH REFLEX TO DIRECT LDL Routine 02/06/2024 11:09 AM EST Dyslipidemia BITEWING - SINGLE RADIOGRAPHIC IMAGE Routine 04/02/2023 2:30 PM EST Symptomatic irreversible pulpitis Dental abscess Z HISTORICAL FECAL IMMUNOCHEMICAL TEST X1 (FIT) Routine 10/29/2020 12:00 PM EDT HM COLONOSCOPY Routine 08/09/2020 [facility] HISTORICAL HPV E6/E7 RFLX SHANELL 16 18/45 Routine 03/15/2020 11:56 AM EST from Last 3 Months or Most Recently Relevant to Health Maintenance Results * Cytopath-cell enhanced (11/10/2024 12:24 PM EDT) Only the most recent of2 resultswithin the time period is included. 11/10/2024 12:2 4 PM EDT 11/11/2024 9:00 AM EDT [facility] - 11/14/2024 9:08 AM EDT ----- ------- Name: Trina Domingo Age/Sex: 64/F : 1960 [id number] Unit#: [id number] Attend Dr: Jennifer Headley [facility] Re11/10/24 Status: [facility] Dis[facility] ----- ------- SPEC : [id number] RECD: 11/11/24 STATUS: SHERLEY ALVA NUM: [id number] YOUSUF: 11/10/24-[address] [facility] [address]: [facility] Head[facility] ENTERED: 11/11/24 SP TYPE: Cytology OT DR: Antonia Kapoor MD ORDERED: Cyto-enhanced Diagnosis Urine, cytology: Negative for high-grade urothelial carcinoma. COMMENT: Review of the cytology preparation demonstrates a cellular specimen composed of squames and urothelial cells. Red blood cells and mixed inflammatory cells are noted. There is no significant atypia seen. Clinical History Other microscopic hematuria Personal history of urinary tract infections Material Received Urine Gross Description Received is 70 cc of clear yellow fluid from which a ThinPrep slide is prepared. IHC S/NG Disclaimer NOTE: Unless otherwise stated, all tissue is formalin-fixed and paraffin-embedded. Some or all of the immunohistochemical tests reported herein may have been developed and their performance characteristics determined by [facility]. They have not been cleared or approved by the U.S. Food and Drug Administration (FDA). However, the FDA has determined that such clearance or approval is not necessary. This laboratory is certified under the Clinical Laboratory Improvement Amendments of 1988 (CLIA) as qualified to perform high complexity clinical laboratory testing. Copies To: Jennifer Headley [facility], [facility] [address] [place] [address] Dr. Luis Carlos [place], [place] [phone] [email or web address] Antonia Kapoor MD [address] [phone] CONTINUED ON NEXT PAGE ----- ------- Name: Trina Domingo Age/Sex: 64/F : 1960 Unit#: [id number] Attend Dr: Jennifer Headley [facility] Re11/10/24 Status: [facility] Disch: ----- ------- SPEC : [id number] RECD: 11/11/24 STATUS: SHERLEY ALVA NUM: [id number] YOUSUF: 11/10/24-[address] [facility] [address]: Jennifer Headley [facility] ENTERED: 11/11/24 SP TYPE: Cytology OTHR DR: Antonia Kapoor MD ORDERED: Cyto-enhanced ----- ------- Signed (signature on file) Sirena Salgado MD 11/14/24 0908 ----- ------- END OF REPORT us Generic External Data Provider LAB CYTOLOGY BHARATI DALEY Final Result Performing Organization Address City/State/[facility] [email or web address]] Co de Phone Number [facility] [address] [place] [phone] * US Renal Complete (10/15/2024 11:36 AM EDT) Anatomical Region Laterality Modality Kidney Ultrasound 10/15/2024 11:3 6 AM EDT Narrative 10/15/2024 11:38 AM EDT [address] [address] Ultrasound Report Signed Patient: Trina Domingo MR#: [id number] : 1960 Acct:[id number] Age/Sex: 64 / F ADM Date: 10/15/24 Loc: .US Attending Dr: Jennifer BANG Ordering Physician: Jennifer Headley Date of Service: 10/15/24 Procedure(s): US renal BI Accession Number(s): [id number] cc: Jennifer Headley; Antonia Kapoor MD CLINICAL HISTORY: N20.0 - Calculus of kidney US Renal Comparison: US/PA/SR - US KIDNEY BILATERAL - 09/20/23 10:15 EDT Findings: Right kidney normal size and echotexture, 10.3 cm length. Stable complex benign cysts, the largest measuring up to 1.4 cm within the upper pole. Left kidney normal size and echotexture, 10.5 cm length. Stable minimally complex 12 mm midpole cyst. No hydronephrosis of either kidney. Normal color Doppler. IMPRESSION: No acute process. Benign bilateral cysts. No current collecting system calculus or obstructive uropathy. This document has been electronically signed by: Osmin Dunlap MD on 10/15/2024 11:36:12 Dictated By: Osmin Dunlap MD Signed By: <Electronically signed by Osmin Dunlap MD in OV> 10/15/24 1137 DD/ 1136 TD/TT: 10/15/24 1136 Supply Chain Design Manager: Procedure Note Donotuseinterpreter, Image - 10/15/2024 [place] [address] Ultrasound Report Signed Patient: Trina Domingo GMR#: [id number] : 8Acct:[id number] Age/Sex: 64 / FADM Date: 10/15/24 Loc: [facility].US Attending Dr: Jennifer BANG Ordering Physician: Jennifer Headley Date of Service: 10/15/24 Procedure(s): US renal BI Accession Number(s): [id number] cc: Jennifer Headley; Antonia Kapoor MD CLINICAL HISTORY: N20.0 - Calculus of kidney US Renal Comparison: US/PA/SR - US KIDNEY BILATERAL - 09/20/23 10:15 EDT Findings: Right kidney normal size and echotexture, 10.3 cm length. Stable complex benign cysts, the largest measuring up to 1.4 cm within the upper pole. Left kidney normal size and echotexture, 10.5 cm length. Stable minimally complex 12 mm midpole cyst. No hydronephrosis of either kidney. Normal color Doppler. IMPRESSION: No acute process. Benign bilateral cysts. No current collecting system calculus or obstructive uropathy. This document has been electronically signed by: Osmin Dunlap MD on 10/15/2024 11:36:12 Dictated By: Osmin Dunlap MD Signed By: <Electronically signed by Osmin Dunlap MD in OV> 10/15/24 1137 DD/ 1136 TD/TT: 10/15/24 1136 Supply Chain Design Manager: [facility] External Provider IMG US PROCEDURES Final Result * OCT, Retina - OU - Both Eyes (09/17/2024 3:30 PM EDT) Tabitha Malone, OD - 10/06/2024 10:37 AM EDT Images from the original result were not included. Right Eye Quality was good. Left Eye Quality was borderline (Patient's fixation moved during scan). Notes OCT MACULA INTERPRETATION Optical Coherence Tomography Interpretation Report Measurements: OD OS Macula Thickness 230 microns 231 microns Test findings: Right eye (OD): Normal foveal contour, no cystoid macular edema, no retinal pigment epithelium disruption, no subretinal fluid Left eye (OS): Normal foveal contour, no cystoid macular edema, retinal pigment epithelium mottling superior to fovea, no subretinal fluid Impression and Plan: Stable macular findings compared to 11/2021. No treatment necessary. Will monitor at her next complete eye exam. Result [facility] Tabitha Gomez OD OPHTH TOMOGRAPHY Final Result * BI Mammogram Screening Tomosynthesis Bilateral (08/25/2024 2:02 PM EDT) Anatomical Region Laterality Modality Breast Bilateral Mammography 08/25/2024 2:02 PM EDT Narrative 09/05/2024 9:53 PM EDT [address] [place] [address] Mammography Report Signed Patient: Trina Domingo MR#: [id number] : 1960 Acct:[id number] Age/Sex: 64 / F ADM Date: 08/25/24 Loc: [place] Attending Dr: Antonia Kapoor MD Ordering Physician: Antonia Kapoor MD Results: 1Negative Date of Service: 08/25/24 Follow Up: 1 Year From Orig ina Mammogram Procedure(s): MM tomosynthesis screening BI Accession Number(s): [id number] cc: Antonia Kapoor MD EXAMINATION: MM SCREENING DIGITAL BREAST TOMOSYNTHESIS, BILATERAL CLINICAL INFORMATION: Screening. Asymptomatic. COMPARISON: Mammography: Comparison is made with available priors TECHNIQUE: Digital breast mammography with tomosynthesis is performed in both the craniocaudal and mediolateral oblique views along with computer-aided detection (CAD). FINDINGS: There are scattered areas of fibroglandular [...] target due date for their next mammogram. Electronically signed by: Cari Dangelo DO 09/05/2024 09:50 PM EDT RP Dictated By: Cari Dangelo DO Signed By: <Electronically signed by Cari Dangelo DO in OV> 09/05/24 2150 DD/ 1402 TD/TT: 08/25/24 1421 Supply Chain Design Manager: Procedure Note Donotuseinterpreter, Image - 09/05/2024 [facility] [address] [place] [address] Mammography Report Signed Patient: Trina Domingo GMR#: [id number] : 8Acct:[id number] Age/Sex: 64 / FADM Date: 08/25/24 Loc: [place] Attending Dr: Antonia Kapoor MD Ordering Physician: Antonia Kapoor MDResults: 1Negative Date of Service: 08/25/24Follow Up: 1 Year From Orig inal Mammogram Procedure(s): MM tomosynthesis screening BI Accession Number(s): [id number] cc: Antonia Kapoor MD EXAMINATION: MM SCREENING DIGITAL BREAST TOMOSYNTHESIS, BILATERAL CLINICAL INFORMATION: Screening. Asymptomatic. COMPARISON: Mammography: Comparison is made with available priors TECHNIQUE: Digital breast mammography with tomosynthesis is performed in both the craniocaudal and mediolateral oblique views along with computer-aided detection (CAD). FINDINGS: There are scattered areas of fibroglandular [...] target due date for their next mammogram. Electronically signed by: Cari Dangelo DO 09/05/2024 09:50 PM EDT RP Dictated By: Cari Dangelo DO Signed By: <Electronically signed by Cari Dangelo DO in OV> 09/05/24 2150 DD/ 1402 TD/TT: 08/25/24 1421 Supply Chain Design Manager: Antonia Kapoor MD IM BI PROCEDURES Edited Result - Final * (ABNORMAL) Lipid Panel with Reflex to Direct LDL (02/06/2024 11:09 AM EST) Triglycerides 88 <150 mg/dL [facility] Comment:Desirable Triglyceri de: less than 150 mg/dLBorderline High Triglyceride 150-199 mg/dLHigh Triglyceride: 200-499 mg/dLVery High Triglyceride: greater than or equal to 5OO mg/dL Cholesterol 207(H) <200 mg/dL [facility] Comment:Desirable Cholestero l: less than 200 mg/dLBorderline High Cholesterol: 200-239 mg/dLHigh Cholesterol: greater than 239 mg/dL LDL Cholesterol Calculated 137(H) <100 mg/dL [facility] Comment:Desirable LDL: less than 100 mg/dLNear Optimal/Above Optimal LDL: 110- 129 mg/dLBorderline High LDL: 130-159 mg/dLHigh LDL: 160-189 mg/dLVery High LDL: greater than or equal to 190 mg/dL HDL Cholesterol 53 >40 mg/dL [facility] Comment:Desirable HDL: great er than 40 mg/dL Note: This HDL assay may give artificially low results in patients with liver disease. Blood 02/06/2024 11:0 9 AM EST 02/06/2024 1:50 PM EST Antonia Kapoor MD LAB BLOOD ORDERABLES Final Resul t [facility] [address] [place] [address] [phone] * Fecal immunochemical test x1 (FIT) (10/29/2020 12:00 PM EDT) FIT Date 1 10/28/20 [facility] FIT Date 2 10/29/20 [facility] FIT1 NEGATIVE NEGATIVE [facility] FIT2 NEGATIVE NEGATIVE [facility] 10/29/2020 12:0 0 PM EDT Historical Provider MD HISTORICAL/NON ORDERABLE LABS Final Result Performing Organization Address City/[facility]/ZIP Co de Phone Number [facility] [address] * Hm Colonoscopy (08/09/2020) Pathologist [facility] Colonoscopy Normal Normal [facility] Final Result * HPV E6/E7 RFLX SHANELL [...] of this assay have been determined by [employer]. The modifications have not been cleared or approved by the FDA. This assay has been validated pursuant to the CLIA regulations and is used for clinical purposes. THIS TEST WAS PERFORMED AT: [employer] [address] [place] [address] [address]RD FLO[address],[place] [address] MARGARITA MEDINA MD 03/15/2020 11:5 6 AM EST Jessee Nascimento MD HISTORICAL/NON ORDERABLE LABS Fi nal Result [facility] Formerly [facility] Anywhere [address] from Last 3 Months or Most Recently Relevant to Health Maintenance Insurance [facility] ST[facility] NURSING HOME OPTIONS (HMO D-SNP) [facility] [place] [id number] Care Teams Fine Unhairer Relationship Specialty Start Date End Date Antonia Kapoor MD [address] [place] [address] PCP - General Family Medicine 06/08/22
--- OUTSIDE RECORDS SUMMARY | 2024-12-15 10:42 | XMS_ITS | Patient Health Record ---
Demographics Address [address] [place] [address] Mobile Preferred Language Unknown Marital Status unmarried Religion Affiliation Unknown Race Unknown Ethnic Group or Author Organization [facility] Address [address] [place] [address] Care Team Providers Care Botany Teacher Name Role Phone Antonio Uriarte MD, Gabino Primary Care Provide Sanjay Miranda Jr Unavailable [phone] Allergies Allergen (clinical drug ingredient) Drug/Non Drug Allergy documented on EMR Reaction Allergy Type Onset Date Status acetaminophen / oxycodone Percocet (uncoded) Unknown Allergy Active Reason For Referral No Information Medications Medication SIG (Take, Route, Fr equency, Duration) Notes Start Date End Date Status Anusol-HC 25 MG 1 suppository Rectal Twice a day as directed; Duration: 14 day(s) 04/26/2011 Active Levoxyl Active Colace Active Gabapentin Active CeleBREX Active PriLOSEC 02/20/2024 02/20/2024 Active Social History Tobacco Use: Social History Observation Description Date Details (start date - stop date) Never Smoker NA - NA Tobacco Use/Smoking Question Answer Notes Patient is a nonsmoker Problems Problem Type SNOMED Code ICD Code Onset Dates Problem Status W/U Status Risk Notes Problem Internal hemorrhoids (07891634) Internal hemorrhoids with other complication (455.2) Active confirmed Plan Of Treatment No Information Insurance Providers Payer Name Payer Address Payer Phone Subscriber Number Group Number Insured Name Patient Relationship to Insured Coverage Start Date Coverage End Date [facility] [employer] [facility] [address] [address] [place], [place] [id number] BEN BEAR Self - patient is the insured
--- OUTSIDE RECORDS SUMMARY | 2024-12-15 10:42 | XMS_ITS | Encounter Summary ---
Author Organization [employer] Address [address] [facility] 7t [place] [address] Care Team Providers Care Blind Lacer Name Role Phone Antonia Cardozo MD Primary Care Provider [phone] Encounter Details Date Type Department Care Team (Late Contact Info) Description 07/05/2022 Abstract [facility] MEDICINE [address] [place] [address] Antonia Cardozo MD [address] [place] [address] Social History Tobacco Use Types Packs/Day Years [...] Department Care Team (Late Contact Info) Description 12/29/2024 9:30 AM EST Office Visit [facility] MEDICINE [address] [place] [address] Antonia aCrdozo MD [address] [place], [place] [phone] 01/12/2025 11:00 AM EST Clinical Support [facility] DIABETES/NUTRITION [address] [place] [address] [place] [address] documented as of this encounter Procedures Procedure Name Priority Date/Time Associated Diagnosis Comments MAMMOGRAPHY Routine 07/05/2022 11:48 AM EDT documented in this encounter Results * Mammography (07/05/2022 11:48 AM EDT) Mammogram bi rads 1 Anatomical Region Laterality Modality Other Zoe Orozco MD HEALTH MAINTENANCE Final Res ult documented in this encounter Visit Diagnoses Not on filedocumented in this encounter Additional Health Concerns Assessment Noted Time PHQ-9 Depression Total Score: 0 07/05/19 10:11 AM EDT documented as of this encounter Care Teams Blind Lacer Relationship Specialty Start Date End Date Antonia Cardozo MD [address] [place], [place] [phone] PCP - General Family Medicine 06/08/22 documented as of this encounter
--- OUTSIDE RECORDS SUMMARY | 2024-12-15 10:42 | XMS_ITS | Encounter Summary ---
Author Organization [facility] Address [address] [facility] 7t [place] [address] Care Team Providers Care Hand Paster Name Role Phone Zoe Orozco MD Primary Care Provider [facility] Primary Care Provider [phone] Antonia Cardozo MD Primary Care Provider [phone] Encounter Details Date Type Department Care Team (Latest Contact Info) Description 09/08/2020 Abstract [facility] CONVERSIONS Dental, Provider, DDS Social History [...] Description 12/29/2024 9:30 AM EST Office Visit [facility] MEDICINE [address] [place] [address] Antonia Cardozo MD [address] [place] [address] 01/12/2025 11:00 AM EST Clinical Support [facility] DIABETES/NUTRITION [address] [place] [address] [place] [address] documented as of this encounter Visit Diagnoses Not on filedocumented in this encounter Care Teams Hand Paster Relationship Specialty Start Date End Date Zoe Orozco MD PCP - General Family Medicine 08/08/19 04/30/22 [facility] [address] [place] [address] PCP - General Family Medicine 05/01/22 06/07/22 Antonia Cardozo MD [address] [place] [address] PCP - General Family Medicine 06/08/22 documented as of this encounter
--- OUTSIDE RECORDS SUMMARY | 2024-12-15 10:42 | XMS_ITS | Encounter Summary ---
Author Organization [employer] [facility] Address [address] [facility] 7t [place] [address] Care Team Providers Care It Consulting Director Name Role Phone Zoe Orozco MD Primary Care Provider [facility] Primary Care Provider Antonia Cardozo MD Primary Care Provider Encounter Details Date Type Department Care Team (Latest Contact Info) Description 10/03/2021 Abstract [facility] CONVERSIONS Dental, Provider, DDS Social [...] Description 12/29/2024 9:30 AM EST Office Visit [facility] MEDICINE [address] [place] [address] Antonia Cardozo MD [address] [place] [address] 01/12/2025 11:00 AM EST Clinical Support [facility] DIABETES/NUTRITION [address] [place] [address] [place] [address] documented as of this encounter Visit Diagnoses Not on filedocumented in this encounter Care Teams It Consulting Director Relationship Specialty Start Date End Date Zoe Orozco MD PCP - General Family Medicine 08/08/19 04/30/[address] [facility] [address] [place] [address] PCP - General Family Medicine 05/01/22 06/07/22 Antonia Cardozo MD [address] [place] [address] PCP - General Family Medicine 06/08/22 documented as of this encounter
--- OUTSIDE RECORDS SUMMARY | 2024-12-15 10:42 | XMS_ITS | Encounter Summary ---
Author Organization [employer] Address [address] [facility] [address] 7t [place] [address] Care Team Providers Care Barrel Dedenting Machine Operator Name Role Phone Antonia Cardozo MD Primary Care Provider [phone] Encounter Details Date Type Department Care Team ([facility] st Contact Info) Description 04/04/2023 Telephone [facility] [address] [place] [address] Valorie Michaud DDS [address] [place] [address] Social History Tobacco Use Types Packs/Day Years [...] Description 12/29/2024 9:30 AM EST Office Visit [facility] MEDICINE [address] [place] [address] Antonia Cardozo MD [address] [place] [address] 01/12/2025 11:00 AM EST Clinical Support [facility] DIABETES/NUTRITION [address] [place] [address] [address] Kenny, RD [address] [place] [address] documented as of this encounter Visit Diagnoses Not on filedocumented in this encounter Additional Health Concerns Assessment Noted Time PHQ-9 Depression Total Score: 0 07/05/19 10:11 AM EDT documented as of this encounter Care Teams Barrel Dedenting Machine Operator Relationship Specialty Start Date End Date Antonia Cardozo MD [address] [place] [address] PCP - General Family Medicine 06/08/22 documented as of this encounter
--- OUTSIDE RECORDS SUMMARY | 2024-12-15 10:42 | XMS_ITS | Encounter Summary ---
Author Organization [employer] Address [address] [facility] 7t [place] [address] Care Team Providers Care Ordnance Truck Installation Mechanic Name Role Phone Antonia Cardozo MD Primary Care Provider [phone] Reason for Visit * Reason Comments Med Refill Encounter Details Date Type Department Care Team ([facility] st Contact Info) Description 12/30/2023 Refill [facility] MEDICINE [address] [place] [address] Day Alva MD [address] [place] [address] Social History Tobacco Use Types Packs/Day Years [...] Description 12/29/2024 9:30 AM EST Office Visit [facility] MEDICINE [address] [place] [address] Antonia Cardozo MD [address] [place] [address] 01/12/2025 11:00 AM EST Clinical Support [facility] DIABETES/NUTRITION [address] [place] [address] [place] [address] documented as of this encounter Visit Diagnoses Not on filedocumented in this encounter Additional Health Concerns Assessment Noted Time PHQ-9 Depression Total Score: 0 09/21/19 9:49 AM EDT documented as of this encounter Care Teams Ordnance Truck Installation Mechanic Relationship Specialty Start Date End Date Antonia Cardozo MD [address] [place] [address] PCP - General Family Medicine 06/08/22 documented as of this encounter
== END 2024-12-15 09:53 | disposition home or self-care (01) ==
LOC: HO.HGI 09:32
PROVIDERS: PCP Family Medicine; Visit Provider Internal Medicine Gastroenterology
DX: Z01.818 Encounter for other preprocedural examination (principal); Z12.11 Encounter for screening for malignant neoplasm of colon; K59.04 Chronic idiopathic constipation
CPT/HCPCS: 99024

== ENCOUNTER → 2024-12-15 09:31 | Outpatient (BNVA) | payer OTHER, SELFPAY | PROVIDERS: PCP Family Medicine; Visit Provider Internal Medicine Gastroenterology | DX: Z01.818 Encounter for other preprocedural examination (principal); K59.09 Other constipation | CPT/HCPCS: 99212 ==

== ENCOUNTER 2024-12-25 10:26 | Outpatient (AMB) | payer OTHER, SELFPAY ==
--- NOTE | 2024-12-25 10:42 | MHC.OFFVIS ---
Vital Signs 12/25/24 10:50 Height 5 ft Weight 176 lb BMI 34.4 BP 122/74 Intake Visit Reasons: Annual/DO NOT RS Environmental Services Manager Required: Yes Environmental Services Manager Language: Heel Varnisher Services: Environmental Services Manager Present (in person) Environmental Services Manager Name: Mikayla KHAN Information Interpreted: non-clinical & clinical Centerless Grinder: Centerless Grinder Present (Mikayla KHAN) Allergies oxycodone (From Percocet) Allergy (Mild, Verified 10/30/24 10:51) ABDOMINAL PAIN amlodipine (From NORVASC) Adverse Reaction (Severe, Verified 10/30/24 10:51) STOMACH UPSET/ANXIETY HPI Comments Details: Presenting for annual exam. No complaints. 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 Chronic constipation Anxiety Hypothyroid Vitamin D deficiency Surgical History Hx of tubal ligation History of carpal tunnel release Hx of eye surgery Hx of dilation and curettage Hx of repair of right rotator cuff Hx of repair of left rotator cuff Hx of colonoscopy Hx of esophagogastroduodenoscopy Hx of cataract removal with insertion of prosthetic lens Hx of section Family History Father Pulmonary edema without heart failure COPD (chronic obstructive pulmonary disease) Mother CVD (cardiovascular disease) Diabetes Sudden cardiac Sister Diabetes Schizo-affective schizophrenia Brother Throat cancer Epilepsy Social History Household Members Other:: son Housing: Apartment Are you a primary director of medicare to a significant other at home: No Alcohol intake: never Patient Tobacco Use Status: Never used Tobacco Second Hand Smoke Exposure: No Current occupational status: disabled Sexual orientation: Straight/Heterosexual Gender identity: Female Female Reproductive History Menstrual Age of Menarche: 12 Review of Systems Const All systems reviewed & are unremarkable except as noted in HPI and below Card Reports as per HPI Resp Reports as per HPI GI Reports as per HPI and Reports no additional complaints Reports as per HPI Physical Exam Const General: cooperative, healthy appearing and comfortable Chest Chest palpation & inspection: normal inspection of the chest and normal palpation of entire chest wall Breast/axilla inspection: normal inspection of the breasts and normal inspection of the axillae Breast/axilla palpation: normal palpation of the breasts, normal palpation of the axillae and no axillary lymphadenopathy Resp Effort & Inspection: normal respiratory effort Auscultation: clear to auscultation bilaterally Percussion: percussion normal Cardio Palpation: normal PMI Rate: regular rate Rhythm: regular rhythm Heart sounds: no murmurs and no rubs Peripheral pulses: Peripheral pulses 2+ throughout GI Inspection: Yes normal to inspection Palpation (GI): Soft to palpation, nontender, no guarding, not rigid and No hepatosplenomegaly present Percussion: Yes normal to percussion Auscultation: normal bowel sounds Rectal Exam - Female: deferred General: Yes bladder normal to palpation External Female Exam: No lesion Speculum Exam - Vagina: normal appearance of the vagina, normal palpation, normal vaginal discharge and not erythematous Speculum Exam - Cervix: normal appearance of the cervix and normal palpation Bimanual exam- vagina & uterus: normal bimanual exam, normal palpation, uterine size normal, bladder normal to palpation, consistency normal and normal palpation Bimanual Exam- Adnexa, other: normal adnexae, no masses and no tenderness Assessment & Plan Assessment & Plan (1) Well woman exam: Code(s): Z01.419 - Encounter for gynecological examination (general) (routine) without abnormal findings Category: Medical Plan: Co testing done Counseled the patient about the recommended dietary allowance of 1200 mg of Calcium & 800 IU of vitamin D. Instructions given the patient to schedule next screening Mammogram in 09/13. Referred her for screening colonoscopy done. Will order DEXA scan . The patient was instructed to perform monthly self-breast exams and to schedule a 2 week DEXA scan follow-up appointment and an annual exam in a year; All questions answered and the patient verbalized understanding. Orders: Orders XR DEXA axial skeleton Today Z78.0 - Asymptomatic menopausal state Referrals Gastroenterology Referral Z12.11 - Encounter for screening for malignant neoplasm of colon Coding Level of Care Code Est Pt Prev Care >65y(40992) Diagnoses Well woman exam Z01.419
[2024-12-25 10:50] VITALS: BP 122/74; BMI 34.4
--- OUTSIDE RECORDS SUMMARY | 2024-12-25 12:21 | XMS_ITS | Encounter Summary ---
Author Organization [employer] Address [address] [facility] 7t [place] [address] Care Team Providers Care Strategic Sourcing Manager Name Role Phone Antonia Cardozo MD Primary Care Provider [phone] Reason for Visit * Reason Onset Date Comments ER Follow-up 05/30/2024 Transition Of Care (Tcm) 05/30/2024 Encounter Details Date Type Department Care Team ([facility] st Contact Info) Description 05/30/[address] [facility] MEDICINE [address] [place] [address] Antonia Cardozo MD [address] [place] [address] ER Follow-up; Transition Of Care (Tcm) Social [...] Please assist with obtaining discharge summary for [facility] ED visit on 05/28/24 for provider review priorto upcoming appointment. Future Appointments Date Time Provider Department Center 06/05/2024 2:30 PM Day Lala MD MEDICINE [facility] * Telephone Encounter - Alexandrea Colmenares RN - 05/30/2024 4:22 PM EDT Hospital Discharges and Admission for [facility] Type of Visit: Emergency Department Date of Admission/Visit: 05/28/24 Facility: [facility] Diagnosis: Fall, Strain to right hand, [...] when attempted to break fall. Pt states [facility] performed xrays and ruled out fractures. Instructed oTC tylenol/motrin and icecompression. PCP follow up if pain not improved. Per pt pain still the same. No large bruising. Mild swelling. Pt having mild effect from OTC meds. Having mild swelling of knee, still pain with ambulation. Advised PCP Out of office. Agrees to team provider follow up next week. Reviewed [facility] operating hours and that wait times vary. Reviewed to call in for Nurse Telephone Triage Service over weekend should sx change or new sx develop. Reviewed isntED contact as [employer] member. Reviewed home care advise, ER precautions and reasons to call back. Pt agrees. The full discharge summary is has been requested from [facility] Review Flowsheet [facility] Transition of Care Documentation Type of Visit Date of Admission/Visit Facility Diagnosis Disposition 05/30/2024 4:00 PM Emergency Department 05/28/2024 [facility] Fall, Strain to right hand, contusion left knee Discharged Home Recent Visits Date Type Provider Dept 04/30/24 Office Visit Reno Desir CNP [facility] 04/09/24 Office Visit Antonia Cardozo MD [facility] 04/02/24 Office Visit Reno Desir CNP [facility] 02/06/24 Office Visit Elzbieta Cooney NP [facility] 12/24/23 Office Visit Antonia Cardozo MD [facility] 10/30/23 Office Visit Day Navarro MD [facility] 09/21/23 Office Visit Peyman [place] MD [facility] 06/20/23 Office Visit Antonia Cardozo MD [facility] Showing recent visits within past 365 [...] ED visit on : Date: 05/28 Hospital: [facility] Seen for: Fall Symptomatic Yes *if yes message should go to Triage Patient advised will forward to team nurse for follow up [phone] faroese documented in this encounter Plan of Treatment Upcoming Encounters Date Type Department Care Team (Late st Contact Info) Description 12/29/2024 9:30 AM EST Office Visit [facility] MEDICINE [address] [place], [place] [phone] Antonia Cardozo MD [address] [place] [address] 01/12/2025 11:00 AM EST Clinical Support [facility] DIABETES/NUTRITION [address] [place] [address] [place] [address] documented as of this encounter Visit Diagnoses Not on filedocumented in this encounter Additional Health Concerns Assessment Noted Time PHQ-9 Depression Total Score: 0 09/21/19 9:49 AM EDT documented as of this encounter Care Teams Strategic Sourcing Manager Relationship Specialty Start Date End Date Antonia Cardozo MD [address] [place], [place] [phone] PCP - General Family Medicine 06/08/22 documented as of this encounter
--- OUTSIDE RECORDS SUMMARY | 2024-12-25 12:22 | XMS_ITS | Encounter Summary ---
Author Organization [employer] Address [address] [facility] 7t [place] [address] Care Team Providers Care Striper Spray Gun Name Role Phone Antonia Cardozo MD Primary Care Provider [phone] Reason for Visit * Reason Comments Med Refill Encounter Details Date Type Department Care Team ([facility] st Contact Info) Description 12/30/2023 Refill [facility] MEDICINE [address] [place] [address] Day Alva MD [address] [place] [address] Social History Tobacco Use Types Packs/Day Years [...] Description 12/29/2024 9:30 AM EST Office Visit [facility] MEDICINE [address] [place] [address] Antonia Cardozo MD [address] [place] [address] 01/12/2025 11:00 AM EST Clinical Support [facility] DIABETES/NUTRITION [address] [place] [address] [place] [address] documented as of this encounter Visit Diagnoses Not on filedocumented in this encounter Additional Health Concerns Assessment Noted Time PHQ-9 Depression Total Score: 0 09/21/19 9:49 AM EDT documented as of this encounter Care Teams Striper Spray Gun Relationship Specialty Start Date End Date Antonia Cardozo MD [address] [place] [address] PCP - General Family Medicine 06/08/22 documented as of this encounter
--- OUTSIDE RECORDS SUMMARY | 2024-12-25 12:22 | XMS_ITS | Encounter Summary ---
Author Organization [employer] Address [address] [facility] 7t [place] [address] Care Team Providers Care Orthotic/Prosthetic Clinician Name Role Phone Antonia Cardozo MD Primary Care Provider [phone] Encounter Details Date Type Department Care Team (Late Contact Info) Description 07/05/2022 Abstract [facility] MEDICINE [address] [place] [address] Antonia Cardozo MD [address] [place] [address] Social History Tobacco Use Types Packs/Day Years [...] Description 12/29/2024 9:30 AM EST Office Visit [facility] MEDICINE [address] [place] [address] Antonia Cardozo MD [address] [place], [place] [phone] 01/12/2025 11:00 AM EST Clinical Support [facility] DIABETES/NUTRITION [address] [place] [address] [place] [address] documented as of this encounter Procedures Procedure [...] documented as of this encounter Care Teams Orthotic/Prosthetic Clinician Relationship Specialty Start Date End Date Antonia Cardozo MD [address] [place], [place] [phone] PCP - General Family Medicine 06/08/22 documented as of this encounter
--- OUTSIDE RECORDS SUMMARY | 2024-12-25 12:22 | XMS_ITS | Encounter Summary ---
Author Organization [employer] [facility] Address [address] [place] [address] Care Team Providers Care Foot Drill Operator Name Role Phone Zoe Orozco MD Primary Care Provider [facility] Primary Care Provider [phone] Antonia Cardozo MD Primary Care Provider [phone] Encounter Details Date Type Department Care Team (Latest Contact Info) Description 09/08/2020 Abstract [facility] CONVERSIONS Dental, Provider, DDS Social History [...] Description 12/29/2024 9:30 AM EST Office Visit [facility] MEDICINE [address] [place] [address] Antonia Cardozo MD [address] [place] [address] 01/12/2025 11:00 AM EST Clinical Support [facility] DIABETES/NUTRITION [address] [place] [address] [place] [address] documented as of this encounter Visit Diagnoses Not on filedocumented in this encounter Care Teams Foot Drill Operator Relationship Specialty Start Date End Date Zoe Orozco MD PCP - General Family Medicine 08/08/19 04/30/[address] [facility] [address] [place] [address] PCP - General Family Medicine 05/01/22 06/07/22 Antonia Cadrozo MD [address] [place] [address] PCP - General Family Medicine 06/08/22 documented as of this encounter
--- OUTSIDE RECORDS SUMMARY | 2024-12-25 12:22 | XMS_ITS | Patient Health Record ---
Demographics Address [address] [place] [address] Mobile Preferred Language Unknown Marital Status unmarried Sabianist Affiliation Unknown Race Unknown Ethnic Group or Author Organization [facility] Address [address] [place] [address] Care Team Providers Care Stenciling Machine Tender Name Role Phone Antonio Uriarte MD, [place] Primary Care Provide Sanjay Miranda Jr Unavailable [phone] Allergies Allergen (clinical drug ingredient) Drug/Non Drug [...] W/U Status Risk Notes Problem Internal hemorrhoids (59805219) Internal hemorrhoids with other complication (455.2) Active confirmed Plan Of Treatment No Information Insurance Providers Payer Name Payer Address Payer Phone Subscriber Number Group Number Insured Name Patient Relationship to Insured Coverage Start Date Coverage End Date [facility] [address] [address] [place], [place] [id number] BEN BEAR Self - patient is the insured
--- OUTSIDE RECORDS SUMMARY | 2024-12-25 12:22 | XMS_ITS | Encounter Summary ---
Author Organization [employer] Address [address] [place] [address] Care Team Providers Care Specimen Boss Name Role Phone Antonia Cardozo MD Primary Care Provider [phone] Encounter Details Date Type Department Care Team ([facility] st Contact Info) Description 04/04/2023 Telephone [facility] ADULT DENTAL [address] [place] [address] Valorie Michaud DDS [address] [place] [address] Social History Tobacco Use Types Packs/Day Years [...] Description 12/29/2024 9:30 AM EST Office Visit [facility] MEDICINE [address] [place] [address] Antonia Cardozo MD [address] [place] [address] 01/12/2025 11:00 AM EST Clinical Support [facility] DIABETES/NUTRITION [address] [place] [address] Maggy Kenny, RD [address] [place] [address] documented as of this encounter Visit Diagnoses Not on filedocumented in this encounter Additional Health Concerns Assessment Noted Time PHQ-9 Depression Total Score: 0 07/05/19 10:11 AM EDT documented as of this encounter Care Teams Specimen Boss Relationship Specialty Start Date End Date Antonia Cardozo MD [address] [place] [id number] PCP - General Family Medicine 06/08/22 documented as of this encounter
--- OUTSIDE RECORDS SUMMARY | 2024-12-25 12:22 | XMS_ITS | Encounter Summary ---
Author Organization [employer] Address [address] [facility] 7[address] [place] [address] Care Team Providers Care Oracle Business Analyst Name Role Phone Antonia Cardozo MD Primary Care Provider [phone] Reason for Visit * Reason Onset Date Comments Nurse Triage 09/10/2023 Encounter Details Date Type Department Care Team ([facility] st Contact Info) Description 09/10/2023 Telephone [facility] MEDICINE [address] [place], [place] [phone] Antonia Cardozo MD [address] [place] [address] Nurse Triage Social History Tobacco Use Types [...] 09/10/2023 12:47 PM EDT Triage call with [employer] Installer ID [id number] Pt reports itchiness of skin , widespread, for last week. Pt has had this in the past about the same time of year last year. Pt denies any changes in soaps or detergent. Pt denies any other symptoms,just itchiness. Home care reviewed with Pt. Pt is advised to come to [facility] today or tomorrow morning.Hours 830am - 800pm. [...] all body. The caller accepted this outcome Indonesian speaker documented in this encounter Plan of Treatment Upcoming Encounters Date Type Department Care Team (Late st Contact Info) Description 12/29/2024 9:30 AM EST Office Visit [facility] MEDICINE [address] [place], [place] [phone] Antonia Cardozo MD [address] [place] [address] 01/12/2025 11:00 AM EST Clinical Support [facility] DIABETES/NUTRITION [address] [place], [place] [phone] Maggy Kenny [address] [place], [place] [phone] documented as of this encounter Visit Diagnoses Not on filedocumented in this encounter Additional Health Concerns Assessment Noted Time PHQ-9 Depression Total Score: 0 07/05/19 10:11 AM EDT documented as of this encounter Care Teams Oracle Business Analyst Relationship Specialty Start Date End Date Antonia Cardozo MD [address] [place] [id number] PCP - General Family Medicine 06/08/22 documented as of this encounter
--- OUTSIDE RECORDS SUMMARY | 2024-12-25 12:22 | XMS_ITS | Encounter Summary ---
Author Organization [employer] Address [address] [facility] [address] [place] [address] Care Team Providers Care Panel Raiser Operator Name Role Phone Antonia Cardozo MD Primary Care Provider [phone] Reason for Visit * Reason Comments Med Refill Encounter Details Date Type Department Care Team ([facility] st Contact Info) Description 10/26/2023 Refill [facility] ADULT DENTAL [address] [place] [address] Adam Wynn DDS [address] [place] [address] Social History Tobacco Use Types Packs/Day Years [...] Description 12/29/2024 9:30 AM EST Office Visit [facility] MEDICINE [address] [place] [address] Antonia Cardozo MD [address] [place] [address] 01/12/2025 11:00 AM EST Clinical Support [facility] DIABETES/NUTRITION [address] [place] [address] [place] [address] documented as of this encounter Visit Diagnoses Not on filedocumented in this encounter Additional Health Concerns Assessment Noted Time PHQ-9 Depression Total Score: 0 09/21/19 9:49 AM EDT documented as of this encounter Care Teams Panel Raiser Operator Relationship Specialty Start Date End Date Antonia Cardozo MD [address] [place] [address] PCP - General Family Medicine 06/08/22 documented as of this encounter
--- OUTSIDE RECORDS SUMMARY | 2024-12-25 12:22 | XMS_ITS | Encounter Summary ---
Author Organization [employer] [facility] Address [address] [facility] [address]t [place] [address] Care Team Providers Care Core Fitter Name Role Phone Zoe Orozco MD Primary Care Provider [facility] Primary Care Provider [phone] Antonia Cardozo MD Primary Care Provider [phone] Encounter Details Date Type Department Care Team (Latest Contact Info) Description 10/03/2021 Abstract [facility] CONVERSIONS Dental, Provider, DDS Social [...] Description 12/29/2024 9:30 AM EST Office Visit [facility] MEDICINE [address] [place] [address] Antonia Cardozo MD [address] [place] [address] 01/12/2025 11:00 AM EST Clinical Support [facility] DIABETES/NUTRITION [address] [place] [address] [place] [address] documented as of this encounter Visit Diagnoses Not on filedocumented in this encounter Care Teams Core Fitter Relationship Specialty Start Date End Date Zoe Orozco MD PCP - General Family Medicine 08/08/19 04/30/22 [facility] [address] [place] [address] PCP - General Family Medicine 05/01/22 06/07/22 Antonia Cardozo MD [address] [place] [address] PCP - General Family Medicine 06/08/22 documented as of this encounter
--- OUTSIDE RECORDS SUMMARY | 2024-12-25 12:22 | XMS_ITS | Clinical Summary ---
Author Organization [employer] Address [address] [facility] [facility] [address] [place] [address] Care Team Providers Care Clerical Office Name Role Phone Antonia Kapoor MD Primary Care Provider Allergies Active Allergy Reactions Criticality Noted Date [...] times daily. 50 g 10/18/19 25 Active Nirmatrelvir&Ritonavi r 150/100 (Paxlovid, 150/100,) 10 x 150 MG & 10 x 100MG tablet therapy pack Take 1 Dose by mouth 2 times daily. 30 each 12/17/19 25 Active ibuprofen 600 MG tablet Take 1 tablet (600 mg) by mouth 3 times daily. 90 tablet 12/17/19 25 025 Active Active Problems Problem Noted Date Diagnosed [...] use of topical steroid - Follow-up with talent advisor Assessment & Plan (04/13/2024 4:51 PM EST): [...] Plan (12/30/2023 6:10 AM EST): following with [facility] GI. EGD on 09/24/23, showing gastritis, duodenitis, esophagitis, and hiatal hernia, and Schatzki's ring. Pathology report - active esophagitis, negative H. Pylori. Barium Swallow on 11/28/23 showing esophageal dysmotility Continue treatment per GI Chronic constipation 12/19/2023 Assessment & Plan (08/06/2024 11:59 AM EDT): - following with [facility], last seen in Jan 2024 - continue Linaclotide 145 mcg daily Assessment & Plan (04/13/2024 4:53 PM EST): - following with [facility], last seen in Jan 2024 - continue Linaclotide 145 mcg daily Dental anomaly 12/19/2023 Dental caries 12/19/2023 Diverticulosis of colon 12/19/2023 Dysphagia 12/19/2023 Assessment & Plan (12/30/2023 6:11 AM EST): Following with [facility] GERD and esophageal dysmotility Continue PPI [...] (08/06/2024 11:59 AM EDT): - following with [facility], last seen in Jan 2024 - [...] (04/13/2024 4:52 PM EST): - following with [facility], last seen in Jan 2024 - [...] (12/30/2023 6:09 AM EST): - following with [facility] GI, last seen in Dec 2022 - [...] (02/23/2023 4:10 PM EST): - following with [facility] GI, last seen in Dec 2022 - [...] (12/30/2023 6:12 AM EST): - evaluated by [facility] Urology provider, last seen in Oct 2023 [...] (04/13/2024 4:57 PM EST): - Followed by [facility] providers, psych, Dr Ortiz - On Gabapentin [...] to Hashimotos' thyroiditis - previously seen by [facility] Endo - continue levothyroxine 112 mcg daily Assessment & Plan (08/22/2024 9:48 AM EDT): >>ASSESSMENT AND PLAN FOR HYPOTHYROIDISM WRITTEN ON 11/13/2022 9:00 AM BY ANTONIA KAPOOR MD - due to Hashimotos' thyroiditis - previously seen by [facility] Endo - most recent TSH 1.28 on 07/04/22 - continue levothyroxine 112 mcg daily Assessment & Plan (08/22/2024 9:48 AM EDT): >>ASSESSMENT AND PLAN FOR HYPOTHYROIDISM WRITTEN ON 02/23/2023 4:12 PM BY ANTONIA KAPOOR MD - due to Hashimotos' thyroiditis - previously seen by [facility] Endo - most recent TSH 1.28 on 07/04/22 - continue levothyroxine 112 mcg daily Assessment & Plan (08/22/2024 9:48 AM EDT): >>ASSESSMENT AND PLAN FOR HYPOTHYROIDISM WRITTEN ON 06/21/2023 12:07 AM BY MIKE DALTON - due to Hashimotos' thyroiditis - previously seen by [facility] Endo - most recent TSH 0.36 on 06/20/23 - continue levothyroxine 112 mcg daily Assessment & Plan (08/22/2024 9:48 AM EDT): >>ASSESSMENT AND PLAN FOR HYPOTHYROIDISM WRITTEN ON 12/28/2023 3:45 PM BY BRITT HERNÁNDEZ - due to Hashimotos' thyroiditis - previously seen by [facility] Endo - most recent TSH 0.36 on 06/20/23 - continue levothyroxine 112 mcg daily Assessment & Plan (08/22/2024 9:48 AM EDT): - previously seen by [facility] Endo - most recent TSH 0.32 on 02/06/24 - continue levothyroxine 112 mcg daily Assessment & Plan (08/22/2024 9:48 AM EDT): >>ASSESSMENT AND PLAN FOR HYPOTHYROIDISM DUE TO DELMA'S THYROIDITIS WRITTEN ON 04/13/2024 4:51 PM BY ANTONIA KAPOOR MD - due to Hashimotos' thyroiditis - previously seen by [facility] Endo - most recent TSH 0.32 on 02/06/24 - continue levothyroxine 112 mcg daily >>ASSESSMENT AND PLAN FOR HYPOTHYROIDISM WRITTEN ON 04/13/2024 4:51 PM BY ANTONIA KAPOOR MD - due to Hashimotos' thyroiditis - previously seen by [facility] Endo - most recent TSH 0.32 on [...] Encounters Date Type Department Care Team Description 12/16/2024 11:00 AM EDT Office Visit [facility] W[facility] [address] [place] [phone] Ling Lewis MD COVID 12/16/2024 Travel 12/05/2024 3:30 PM EDT Clinical Support [facility] DIABETES/NUTRITION [address] [place] [phone] Dyslipidemia (Primary Dx); Vitamin D deficiency; Class 2 obesity due to excess calories without serious comorbidity with body mass index (BMI) of 36.0 to 36.9 in adult 12/05/2024 Travel 12/05/2024 Telephone [facility] MEDICINE [address] [place] [phone] Antonia Kapoor MD Durable Medical Equipment (DME: [employer]) 12/01/2024 9:00 AM EDT Clinical Support [facility] DIABETES/NUTRITION [address] [place] [address] Dyslipidemia (Primary Dx); Vitamin D2 deficiency; Class 2 obesity due to excess calories with body mass index (BMI) of 36.0 to 36.9 in adult, unspecified whether serious comorbidity present 12/01/2024 Travel 11/10/2024 10:00 AM EDT Nutrition [facility] DIABETES/NUTRITION [address] [place] [address] Dyslipidemia; Vitamin D deficiency; Class 2 obesity due to excess calories with body mass index (BMI) of 36.0 to 36.9 in adult, unspecified whether serious comorbidity present 11/10/2024 Orders Only GENERIC EXTERNAL DATA DEPARTMENT Provider, Generic External Data 11/10/2024 Travel 10/30/2024 Orders Only GENERIC EXTERNAL DATA DEPARTMENT Provider, Generic External Data 10/29/2024 Telephone [facility] MEDICINE [address] [place] [phone] Antonia Kapoor MD november recall 10/17/2024 3:15 PM EDT Office Visit [facility] MEDICINE [address] [place] [phone] Tessy Arango MD Hand eczema (Primary Dx) 10/17/2024 Travel 10/15/2024 Orders Only [facility] External Provider, [facility] 10/09/2024 Telephone [facility] MEDICINE [address] [place] [phone] Antonia Kapoor MD Referral 09/30/2024 Refill [facility] MED & PEDS [address] [place] [address] Antonia Kapoor MD from Last 3 Months Immunizations Immunization Administration [...] is your housing situation today? I have uzielmaurisio saez 09/21/[address] you [...] Sign Reading Time Taken Comments Blood Pressure 149/92 12/16/2024 10:31 AM EDT Pulse 107 12/16/2024 10:31 AM EDT Temperature 37.4 C (99.3 F) 12/16/2024 10:31 AM EDT Respiratory Rate 20 12/16/2024 10:31 AM EDT Oxygen Saturation 98% 12/16/2024 10:31 AM EDT Inhaled Oxygen Concentration - - Weight 82.4 kg (181 lb 9.6 oz) 12/16/2024 10:31 AM EDT Height 152.4 cm (5') 12/16/2024 10:31 AM EDT Body Mass Index 35.47 12/16/2024 10:31 AM EDT Plan of Treatment Upcoming Encounters Date Type Department Care Team (Late st Contact Info) Description 12/29/2024 9:30 AM EST Office Visit [facility] MEDICINE [address] [place] [address] Antonia Kpaoor MD [address] [place] [address] 01/12/2025 11:00 AM EST Clinical Support [facility] DIABETES/NUTRITION [address] [place] [address] [place] [address] Health Maintenance Due Date Last Done Comments CT Colonography 1960 Dental Oral Exam 1960 Dental Prophylaxis 1960 Dental X-Ray: Full Mouth 1960 FIT DNA/Cologuard 1960 FOBT 1960 Sigmoidoscopy 1960 Alcohol/Substance Use Screening 1970 Hepatitis C Screening 02/08/1976 Pneumococcal Vaccine: 50+ Years (1 of 1 - PCV) 02/08/2008 FIT 10/29/2021 10/29/2020 Dental X-Ray: Bitewings 04/03/2024 04/02/2023 Depression Screening 09/20/2024 09/21/2023, 09/21/19 SDOH Screening 09/20/2024 09/21/2023 COVID-19 Vaccine ( season) 2024 02/02/2021, 06/21/2020, 05/24/2020 Influenza Vaccine (#1) 2024 , 12/23/2019, 02/06/2019, Additional history exists Colonoscopy 08/09/2025 08/09/2020 Colorectal Cancer Screening 08/09/2025 [...] Date/Time Associated Diagnosis Comments POCT INFLUENZA B Routine 12/16/2024 10:4 9 AM EDT COVID POCT INFLUENZA A Routine 12/16/2024 10:4 9 AM EDT COVID POCT RAPID COVID ANTIGEN Routine 12/16/2024 10:36 AM EDT COVID CYTOPATH-CELL ENHANCED Routine 12:24 PM EDT CYTOPATH-CELL ENHANCED Routine 10:30 AM EDT US RENAL COMPLETE Routine 10/15/2024 11: 36 AM EDT BI MAMMOGRAM SCREENING TOMOSYNTHESIS BILATERAL Routine 08/25/2024 2:02 PM EDT LIPID PANEL WITH REFLEX TO DIRECT LDL Routine 02/06/2024 11:09 AM EST Dyslipidemia BITEWING - SINGLE RADIOGRAPHIC IMAGE Routine 04/02/2023 2:30 PM EST Symptomatic irreversible pulpitis Dental abscess ZZZ HISTORICAL FECAL IMMUNOCHEMICAL TEST X1 (FIT) Routine 10/29/2020 12:00 PM EDT HM COLONOSCOPY Routine 08/09/2020 ZZ HISTORICAL HPV E6/E7 RFLX SHANELL 16 18/45 Routine 03/15/2020 11:56 AM EST from Last 3 Months or Most Recently Relevant to Health Maintenance Results * POCT Influenza B manually resulted (12/16/2024 10:49 AM EDT) Rapid Influenza B Ag Negative Negative, Indeterminate QC Media Lot # [id number] Lot# Expiration Date Swab 12/16/2024 10:4 9 AM EDT Ling Lewis MD POINT OF CARE TEST ENTER/EDIT OR DERABLES Final Result * POCT Influenza A manually resulted (12/16/2024 10:49 AM EDT) Rapid Influenza A Ag Negative Negative, Indeterminate QC Media Lot # [id number] Lot# Expiration Date Swab Nasopharyngeal structure / Unknown 12/16/2024 10:49 AM EDT us Ling Lewis MD POINT OF CARE TEST ENTER/EDIT OR DERABLES Final Result * POCT Rapid COVID Ag (12/16/2024 10:36 AM EDT) Pathologist [facility] Rapid COVID Ag Positive QC Media Lot # [id number] Lot# Expiration Date [id number] Swab 12/16/2024 10:3 6 AM EDT us Ling Lewis MD POINT OF CARE TEST ENTER/EDIT OR DERABLES Final Result * Cytopath-cell enhanced (11/10/2024 12:24 PM EDT) Only the most recent of2 resultswithin the time period is included. 11/10/2024 12:2 4 PM EDT 11/11/2024 9:00 AM EDT Wanda [facility] - 11/14/2024 9:08 AM EDT ----- ------- Name: Trina Domingo Age/Sex: 64/F : 1960 Unit#: [id number] Attend Dr: Jennifer Headley [facility] Re11/10/24 Status: DEP REF Location: .LAB Disch: ----- ------- SPEC : [id number] RECD: 11/11/24 STATUS: SHERLEY ALVA NUM: [id number] YOUSUF: 11/10/24-12[address] [facility] DR: Jennifer Headley [facility] ENTERED: 11/11/24 SP TYPE: Cytology OT DR: [...] developed and their performance characteristics determined by [facility]. They have not been cleared or approved by the U.S. Food and Drug Administration (FDA). However, the FDA has determined that such clearance or approval is not necessary. This laboratory is certified under the Clinical Laboratory Improvement Amendments of 1988 (CLIA) as qualified to perform high complexity clinical laboratory testing. Copies To: eJnnifer Headley [facility] [address] [place] [address] [address] [place] [address] [email or web address] Antonia Kapoor MD [address] [address] CONTINUED ON NEXT PAGE ----- ------- Name: Trina Domingo/Sex: 64/F : 1960 Unit#: [id number] Attend Dr: Jennifer Headley [facility] Re11/10/24 Status: DEP REF Location: [facility] Disch: ----- ------- SPEC : [id number] RECD: 11/11/24 STATUS: SHERLEY ALVA NUM: [id number] YOUSUF: 11/10/24-[address] [facility] [address]: Jennifer Headley [facility] ENTERED: 11/11/24-951 SP TYPE: Cytology OTHR DR: Antonia Kapoor MD ORDERED: Cyto-enhanced ----- ------- Signed (signature on file) Sirena Salgado MD 11/14/24 0908 ----- ------- END OF REPORT Generic External Data Provider LAB CYTOLOGY BHARATI DALEY Final Result [facility] [address] [place] [phone] * US Renal Complete (10/15/2024 11:36 AM EDT) Anatomical Region Laterality Modality Kidney Ultrasound 10/15/2024 11:3 6 AM EDT Narrative 10/15/2024 11:38 AM EDT [address] [address] Ultrasound Report Signed Patient: Trina Domingo MR#: [id number] : 1960 Acct:[id number] Age/Sex: 64 / F ADM Date: 10/15/24 Loc: HO.US Attending Dr: Jennifer BANG Ordering Physician: Jennifer Headley Date of Service: 10/15/24 Procedure(s): US renal BI Accession Number(s): [id number] cc: Jennifer Headley; Antonia Kapoor MD CLINICAL HISTORY: N20.0 - Calculus of kidney US Renal Comparison: US/OK/SR - US KIDNEY BILATERAL - 09/20/23 10:15 [...] 10/15/24 1137 DD/ 1136 TD/TT: 10/15/24 1136 Provider Relations Rep: Procedure Note Donotuseinterpreter, Image - 10/15/2024 [address] [place] [address] Ultrasound Report Signed Patient: Trina Domingo GMR#: [id number] : 1960cct:[id number] Age/Sex: 64 / FADM Date: 10/15/24 Loc: HO.US Attending Dr: Jennifer BANG Ordering Physician: Jennifer Headley Date of Service: 10/15/24 Procedure(s): US renal BI Accession Number(s): [id number] cc: Jennifer Headley; Antonia Kapoor MD CLINICAL HISTORY: N20.0 - Calculus of kidney US Renal Comparison: US/OK/SR - US KIDNEY BILATERAL - 09/20/23 10:15 [...] 10/15/24 1137 DD/ 1136 TD/TT: 10/15/24 1136 Provider Relations Rep: [facility] External Provider IMG US PROCEDURES Final Result * BI Mammogram Screening Tomosynthesis Bilateral (08/25/2024 2:02 PM EDT) Anatomical Region Laterality Modality Breast Bilateral Mammography 08/25/2024 2:02 PM EDT Narrative 09/05/2024 9:53 PM EDT [address] [place] [address] Mammography Report Signed Patient: Trina Domingo G MR#: [id number] : 1960 Acct:[id number] Age/Sex: 64 / F ADM Date: 08/25/24 Loc: MAMMO Attending Dr: Antonia Kapoor MD Ordering Physician: Antonia Kapoor MD Results: 1Negative Date of Service: 08/25/24 Follow Up: 1 Year From Orig ina Mammogram Procedure(s): MM tomosynthesis screening BI Accession Number(s): [id number] cc: Antonia Kapoor MD EXAMINATION: MM SCREENING [...] Cari Dangelo DO 09/05/2024 09:50 PM EDT Dictated By: Cari Dangelo DO Signed By: <Electronically signed by Cari Dangelo DO in OV> 09/05/24 2150 DD/ 1402 TD/TT: 08/25/24 1421 Provider Relations Rep: Procedure Note Donotuseinterpreter, Image - 09/05/2024 [facility] [address] [place], [place] [address] Mammography Report Signed Patient: Trina Domingo GMR#: [id number] : 1960cct:[id number] Age/Sex: 64 / FADM Date: 08/25/24 Loc: HO.MAMMO Attending Dr: Antonia Kapoor MD Ordering Physician: Antonia Kapoor MDResults: 1Negative Date of Service: 08/25/24Follow Up: 1 Year From Orig ina Mammogram Procedure(s): MM tomosynthesis screening BI Accession Number(s): [id number] cc: Antonia Kapoor MD EXAMINATION: MM SCREENING [...] Cari Dangelo DO 09/05/2024 09:50 PM EDT Dictated By: Cari Dangelo DO Signed By: <Electronically signed by Cari Dangelo DO in OV> 09/05/24 2150 DD/ 1402 TD/TT: 08/25/24 1421 Provider Relations Rep: Antonia Kapoor MD [facility] BI PROCEDURES Edited Result - Final * (ABNORMAL) Lipid Panel with Reflex to Direct LDL (02/06/2024 11:09 AM EST) Triglycerides 88 <150 mg/dL [facility] Comment:Desirable Triglyceri de: less than 150 mg/dLBorderline High Triglyceride 150-199 mg/dLHigh Triglyceride: 200-499 mg/dLVery High Triglyceride: greater than or equal to 5OO mg/dL Cholesterol 207(H) <200 mg/dL [facility] Comment:Desirable Cholestero l: less than 200 mg/dLBorderline High Cholesterol: 200-239 mg/dLHigh Cholesterol: greater than 239 mg/dL LDL Cholesterol Calculated 137(H) <100 mg/dL [facility] Comment:Desirable LDL: less than 100 mg/dLNear Optimal/Above Optimal LDL: 110- 129 mg/dLBorderline High LDL: 130-159 mg/dLHigh LDL: 160-189 mg/dLVery High LDL: greater than or equal to 190 mg/dL HDL Cholesterol 53 >40 mg/dL [facility] Comment:Desirable HDL: great er than 40 mg/dL Note: This HDL assay may give artificially low results in patients with liver disease. Blood 02/06/2024 11:0 9 AM EST 02/06/2024 1:50 PM EST Antonia Kapoor MD LAB BLOOD ORDERABLES Final Resul t Performing Organization Address City/[facility]/ZIP Co de Phone Number [facility] [address] [place] [phone] * Fecal immunochemical test x1 (FIT) (10/29/2020 12:00 PM EDT) FIT Date 1 10/28/20 [facility] FIT Date 2 10/29/20 [facility] FIT1 NEGATIVE NEGATIVE [facility] FIT2 NEGATIVE NEGATIVE [facility] 10/29/2020 12:0 0 PM EDT Historical Provider HISTORICAL/NON ORDERABLE LABS Final Result [facility] [address] * Hm Colonoscopy (08/09/2020) Colonoscopy Normal Normal [facility] Final Result * HPV E6/E7 RFLX SHANELL 16 18/45 (03/15/2020 11:56 AM EST) HPV 16 RNA TNP [facility] HPV 18/45 RNA TNP [facility] HPV E6 E7 ADD TNP [facility] HPV mRNA E6/E7 rflx Not Detected Not Detected [facility] Comment: This test was performed using the APTIMA HPV Assay ([employer] This assay detects E6/E7 viral messenger RNA (mRNA) from 14 high-risk HPV types (16,18,31,33,35,39,45,51,52,56,58,59,66,68). The analytical performance characteristics of this assay have been determined by 2 Minutes. The modifications have not been cleared or approved by the FDA. This assay has been validated pursuant to the CLIA regulations and is used for clinical purposes. THIS TEST WAS PERFORMED AT: [employer] [address] [facility] [address],[place] [address] MARGARITA MEDINA MD 03/15/2020 11:5 6 AM EST Jessee Nascimento MD HISTORICAL/NON ORDERABLE LABS Fi nal Result [facility] [address] from Last 3 Months or Most Recently Relevant to Health Maintenance Insurance [facility] STANDARD [facility] RETIREMENT OPTIONS (O D-SNP) DENTAL-[facility] MEDICAID STAND ADULT Care Teams Clerical Office Relationship Specialty Start Date End Date Antonia Kapoor MD [address] [place] [phone] PCP - General Family Medicine 06/08/22
== END 2024-12-25 11:09 | disposition home or self-care (01) ==
LOC: HO.HWS 10:26
PROVIDERS: PCP Family Medicine; Visit Provider Obstetrics & Gynecology
DX: Z01.419 Encounter for gynecological examination (general) (routine) without abnormal findings (principal)
CPT/HCPCS: 99397; 99459

== ENCOUNTER 2024-12-25 10:26 | Outpatient (REF) | payer OTHER, SELFPAY | END 2024-12-25 10:27 | disposition home or self-care (01) | LOC: HO.LNP 10:26 | PROVIDERS: PCP Family Medicine; Visit Provider Obstetrics & Gynecology | DX: Z01.419 Encounter for gynecological examination (general) (routine) without abnormal findings (principal); Z98.51 Tubal ligation status; Z78.0 Asymptomatic menopausal state; Z12.11 Encounter for screening for malignant neoplasm of colon; Z11.51 Encounter for screening for human papillomavirus (HPV) | CPT/HCPCS: 87626; 88175; 99397 ==